=== PATIENT | female | born 1950 | race Caucasian/White ===

== ENCOUNTER → 2017-08-04 | Outpatient (CLI) | payer MEDICARE, OTHER ==
[~2017-08-04] MED LIST: ALIGN4 MG PO; ASPIRIN81 MG PO; BENTYL10 MG PO; CLONIDINE HCL0.1 MG PO; DICYCLOMINE HCL10 MG PO; FLECTOR1 EACH PO; FLUOXETINE HCL20 MG PO; HYDROCODON-ACE1 EA10 PO; LEVOCETIRIZINE D5 MG PO; LEVSIN0.125 MG PO; LORAZEPAM INJ 2 MG/ML VIAL ONE; LOSARTAN-HCTZ1 EAC2 PO; LOSARTAN-HCTZ1 EACH PO; MELOXICAM7.5 MG PO; METOPROLOL TART25 MG PO; OMEPRAZOLE40 MG PO; ONDANSETRO4 MG/UDTAB PO; PROMETHAZINE HC25 M1 PO; SERTRALINE HCL50 MG PO; ZOFRAN ODT4 MG SL; ZOLPIDEM TARTRA10 MG PO
--- NOTE | 2017-08-05 08:39 | Diagnostic Imaging Report ---
Exam: Lumbar spine MRI without IV contrast History: Low back pain Comparison studies: None Technique: Sagittal and axial T2 , sagittal T1 and IR, axial-oblique proton density and coronal T2. Intravenous contrast: None Findings: Number of lumbar vertebral bodies: 5. Alignment: Normal lordosis. Very mild thoracolumbar curvature convex to the left Soft tissues: No T2 hyperintense inflammatory changes. Paraspinal muscles: Mild atrophy, slightly greater on the right at L5. Lower thoracic cord: Normal in signal and morphology. The tip of the conus is at L1. Cauda equina: No masses. No arachnoiditis. Vertebrae: No compression fractures, infection or neoplasm. Degenerative changes: T11-T12: Mildly degenerated disc. Small disc bulge does not result in canal stenosis. Patent foramina. T12-L1: Patent canal and foramina. No disc herniation L1-L2: Patent canal and foramina. No disc herniation. L2-L3: Mildly degenerated disc with mild loss of disc height and T2 disc signal. Symmetric disc bulge does not result in significant canal stenosis. Pain foramina. L3-L4: Mildly degenerated disc. Small asymmetric right disc bulge with 10 mm TV x 3 mm AP right central disc protrusion and mild facet arthrosis results in minimal canal stenosis and mild narrowing of the right subarticular zone without nerve root impingement. L4-L5: Mildly degenerated disc. Asymmetric left disc bulge and mild facet arthrosis result in very mild canal stenosis and mild narrowing of the subarticular zones. No significant foraminal stenosis. Small facet effusion on the right results in only mild widening of the right facet joint. L5-S1: Patent canal and foramina. No disc herniation. IMPRESSION: Mild degenerative changes with mild multilevel disc degeneration and small disc protrusion at L3-L4 without significant canal stenosis, foraminal stenosis or nerve root impingement. Signed by: Dr. Ja Brenner M.D. on 08/05/2017 8:35 AM
== END ==
LOC: MRI 07-28 15:17
PROVIDERS: ATTEND Family Medicine
DX: M54.5 Low back pain (principal)
CPT/HCPCS: 72148; J2060

== ENCOUNTER 2017-09-11 04:21 | Emergency (ER) | payer MEDICARE, OTHER ==
[~2017-09-11] VITALS: Ht 162.6 cm; Wt 74.4 kg
[~2017-09-11 04:21] MED LIST changes: -LORAZEPAM INJ 2 MG/ML VIAL ONE
--- OUTSIDE RECORDS SUMMARY | 2017-09-11 04:24 | XMS REPORT ---
Author Author [facility] Address Unknown Phone Unavailable Care Team Providers Care Health Information Provider Name Role Phone MARICHUY MCCALLUM Unavailable Unavailable Problems This patient has no known problems. Allergies, Adverse Reactions, Alerts This patient has no known allergies or adverse reactions. Medications This patient has no known medications. Results Test Description Test Time Test Comments Text Results Atomic Results Result Comments MRI SPINE LUMBAR WO [place] [address] Patient Name: MARGARETTE COLÓN MR #: [id number] : 1950 Age/Sex: 67/F Req #: [id number] Adm Physician: Ordered by: MARICHUY MCCALLUM MD Report #: [id number] Location: MRI Room/Bed: Procedure: [id number] MRI/MRI SPINE LUMBAR WO Exam Date: 08/04/17 Exam Time: 1210 REPORT STATUS: Signed Exam: Lumbar spine MRI without IV contrast History: Low back pain Comparison studies: None Technique: Sagittal and axial T2 , sagittal T1 and IR, axial-oblique proton density and coronal T2. Intravenous contrast: None Findings: Number of lumbar vertebral bodies: 5. Alignment: Normal lordosis. Very mild thoracolumbar curvature convex to the left Soft tissues: No T2 hyperintense inflammatory changes. Paraspinal muscles: Mild atrophy, slightly greater on the right at L5. Lower thoracic cord: Normal in signal and morphology. The tip of the conus is at L1. Cauda equina: No masses. No arachnoiditis. Vertebrae: No compression fractures, infection or neoplasm. Degenerative changes: T11-T12: Mildly degenerated disc. Small disc bulge does not result in canal stenosis. Patent foramina. T12- L1: Patent canal and foramina. No disc herniation L1-L2: Patent canal and foramina. No disc herniation. L2-L3: Mildly degenerated disc with mild loss of disc height and T2 disc signal. Symmetric disc bulge does not result in significant canal stenosis. Pain foramina. L3-L4: Mildly degenerated disc. Small asymmetric right disc bulge with 10 mm TV x 3 mm AP right central disc protrusion and mild facet arthrosis results in minimal canal stenosis and mild narrowing of the right subarticular zone without nerve root impingement. L4-L5: Mildly degenerated disc. Asymmetric left disc bulge and mild facet arthrosis result in very mild canal stenosis and mild narrowing of the subarticular zones. No significant foraminal stenosis. Small facet effusion on the right results in only mild widening of the right facet joint. L5-S1: Patent canal and foramina. No disc herniation. IMPRESSION: Mild degenerative changes with mild multilevel disc degeneration and small disc protrusion at L3-L4 without significant canal stenosis, foraminal stenosis or nerve root impingement. Signed by: Dr. Greg Brenner M.D. on 08/05/2017 8:35 AM Dictated By: GREG BRENNER MD 4 Transcribed By: KYM on 08/05/17834 COPY TO: MARICHUY MCCALLUM MD CHEST 2 VIEWS [place] [address] Patient Name: MARGARETTE COLÓN MR #: [id number] : 1950 Age/Sex: 66/F Req # : [id number] Adm Physician: Ordered by: MARICHUY MCCALLUM MD Report #: [id number] Location: [facility] Room/Bed: Procedure: [id number] DX/CHEST 2 VIEWS Exam Date: 06/02/17 Exam Time: 1715 REPORT STATUS: Signed PROCEDURE: Frontal and lateral views of the chest. COMPARISON: Chest radiograph 10/01/2010 INDICATIONS: BRONCHITIS, COUGH FINDINGS: Lines/tubes: None. Lungs: The lungs are well inflated and clear. Mild bibasilar atelectasis. There is no evidence of pneumonia or pulmonary edema. Pleura: There is no pleural effusion or pneumothorax. Heart and mediastinum: The heart and the mediastinum are normal. Bones: No acute bony abnormality. IMPRESSION: No acute cardiopulmonary disease. Dictated by: Cristiano Cedeño M.D. on 06/02/2017 at 17:44 Electronically approved by: Cristiano Cedeño M.D. on 06/02/2017 at 17:44 Dictated By: CRISTIANO CEDEÑO MD 1744 Transcribed By: GERARDO on 06/02/171743 COPY TO: MARICHUY MCCALLUM MD
[2017-09-11] MEDS ORDERED: PANTOPRAZOLE 40 MG 10ML VIAL IV STA (04:30)
[2017-09-11] MEDS ORDERED: SODIUM CHLORIDE 0.9% 1000ML 1,000 ML IV ONE (04:30)
[2017-09-11] MEDS ORDERED: DIATRIZOATE MEGL/DIATRIZOA SOD 30 ML BTL PO ONE (04:34)
[2017-09-11 04:39] LABS: BASOPHILS # (AUTO) 0.1 (0.0-0.1); BASOPHILS % 0.4 % (0.0-1.0); EOSINOPHILS # (AUTO) 0.1 (0.0-0.4); EOSINOPHILS % 0.6 % (0.0-6.0); HEMATOCRIT 41.4 % (34.2-44.1); LYMPHOCYTES # (AUTO) 2.6 (1.0-3.2); LYMPHOCYTES % 17.5 % (18.0-39.1); MEAN CORPUSCULAR HEMOGLOBIN 27.3 pg (28-32); MEAN CORPUSCULAR HGB CONC 31.4 g/dL (31-35); MEAN CORPUSCULAR VOLUME 86.8 fL (81-99); MONOCYTES # (AUTO) 0.9 (0.2-0.8); MONOCYTES % 6.2 % (4.4-11.3); NEUTROPHILS # (AUTO) 11.2 (2.1-6.9); NEUTROPHILS % 74.8 % (38.7-80.0); PLATELET COUNT 472 x10e3/uL (140-360); RED BLOOD COUNT 4.77 x10e6/uL (3.6-5.1); RED CELL DISTRIBUTION WIDTH 15.3 % (11.7-14.4)
[2017-09-11] MEDS ORDERED: GLYCOPYRROLATE (04:43)
[2017-09-11] MEDS ORDERED: FORMOTEROL (04:43)
[2017-09-11] MEDS ORDERED: DICYCLOMINE HCL20 MG PO (04:43)
[2017-09-11] MEDS ORDERED: ASPIRIN EC81 MG PO (04:43)
[2017-09-11 05:00] LABS: ALANINE AMINOTRANSFERASE 10 IU/L (0-55); ALBUMIN 3.9 g/dL (3.5-5.0); ALKALINE PHOSPHATASE 124 IU/L (40-150); AMYLASE 23 U/L (25-125); BLOOD UREA NITROGEN 16 mg/dL (7-26); BUN/CREATININE RATIO 14 (6-25); CALCIUM 9.7 mg/dL (8.4-10.2); CARBON DIOXIDE 26 mmol/L (22-29); CHLORIDE 100 mmol/L (98-107); CREATINE KINASE 40 IU/L (29-168); CREATININE, SERUM 1.11 mg/dL (0.57-1.11); EST GLOMERULAR FILTRATION RATE 49 ML/MIN (60-); GLUCOSE 102 mg/dL (74-118); LIPASE 12 U/L (8-78); SODIUM 138 mmol/L (136-145)
[2017-09-11] MEDS ORDERED: IOPAMIDOL 370 MG/ML 200 ML INFUS..BTL INJ ONE (05:47)
[2017-09-11] MEDS ORDERED: SODIUM CHLORIDE 0.9% 50ML 50 ML ONE (05:47)
[2017-09-11 05:54] LABS: BILIRUBIN,URINE NEGATIVE (NEGATIVE); KETONES,URINE NEGATIVE (NEGATIVE); LEUKOCYTE ESTERASE ,URINE 1+ (NEGATIVE); NITRITE,URINE NEGATIVE (NEGATIVE); PROTEIN,URINE DIPSTICK NEGATIVE (NEGATIVE); URINE UROBILINOGEN 0.2 mg/dL (0.2 - 1)
[2017-09-11 05:57] LABS: CLARITY,URINE CLEAR (CLEAR); COLOR,URINE STRAW (YELLOW)
[2017-09-11 06:00] LABS: BACTERIA,URINE FEW /HPF; EPITHELIAL CELLS,URINE FEW /LPF
--- NOTE | 2017-09-11 06:17 | Diagnostic Imaging Report ---
EXAM: CT Abdomen and Pelvis WITH contrast INDICATION: Abdominal pain COMPARISON: 11/13/2016 TECHNIQUE: Abdomen and pelvis were scanned utilizing a multidetector helical scanner from the lung base to the pubic symphysis after administration of IV contrast. Coronal and sagittal reformations were obtained. Routine protocol was performed. Scan was performed when during portal venous phase. IV CONTRAST: 100 mL of Isovue-370 ORAL CONTRAST: None RADIATION DOSE: Total DLP: 475.92 mGy*cm Estimated effective dose: (DLP x 0.015 x size factor) mSv COMPLICATIONS: None FINDINGS: LINES and TUBES: None. LOWER THORAX: Unremarkable HEPATOBILIARY: No focal hepatic lesions. No biliary ductal dilation. GALLBLADDER: There are cholecystectomy clips. SPLEEN: No splenomegaly. PANCREAS: No focal masses or ductal dilatation. Diffuse fatty replacement. ADRENALS: No adrenal nodules KIDNEYS/URETERS: Kidneys enhance symmetrically. No hydronephrosis. No cystic or solid mass lesions. No stones. GI TRACT: No abnormal distention, wall thickening, or evidence of bowel obstruction. Loss of haustrations of the left hemicolon can be seen on patient with chronic colitis. Appendix is not clearly identified. There is however no fat stranding or adenopathy in the right lower quadrant to suggest appendicitis. PELVIC ORGANS/BLADDER: There are postop changes of hysterectomy and bilateral oophorectomies. LYMPH NODES: No lymphadenopathy. VESSELS: There is mild atherosclerotic disease in the aorta and major arterial branches. PERITONEUM / RETROPERITONEUM: No free air or fluid. BONES: There are mild degenerative changes in the lumbar spine. SOFT TISSUES: Unremarkable. IMPRESSION: 1. No evidence of acute intra-abdominal or pelvic abnormality. 2. However, loss of infiltration of the left hemicolon can be seen on patients with chronic colitis. Signed by: Dr. Inder Cardoza M.D. on 09/11/2017 6:13 AM
--- NOTE | 2017-09-11 06:19 | Diagnostic Imaging Report ---
EXAMINATION: CHEST SINGLE (PORTABLE) INDICATION: Shortness of breath COMPARISON: 06/02/2017 FINDINGS: TUBES and LINES: None. LUNGS: Lungs are not well inflated. Lungs are clear. There is mild prominence of the central pulmonary vasculature, consistent with pulmonary venous congestion. PLEURA: No pleural effusion or pneumothorax. HEART AND MEDIASTINUM: Cardiac size is mildly enlarged. There are atherosclerotic calcifications within the aorta. BONES AND SOFT TISSUES: No acute osseous lesion. Soft tissues are unremarkable. UPPER ABDOMEN: No free air under the diaphragm. IMPRESSION: No acute thoracic abnormality. Mild enlargement of the heart without decompensation. Signed by: Dr. Inder Cardoza M.D. on 09/11/2017 6:14 AM
[2017-09-11 06:42] VITALS: BP 125/65
[2017-09-22] MEDS ORDERED: PHENERGAN (13:29)
== END 2017-09-11 06:44 | disposition home or self-care (01) ==
LOC: ER 04:21
DX: R11.2 Nausea with vomiting, unspecified (principal); R19.7 Diarrhea, unspecified; N30.90 Cystitis, unspecified without hematuria; I10 Essential (primary) hypertension; K21.9 Gastro-esophageal reflux disease without esophagitis
CPT/HCPCS: 36415; 71045; 74177; 80053; 81001; 82150; 82550; 82553; 83690; 84484; 85025; 87086; 87400; 93005; 96360; 96374; 99284; J7030; Q9967

== ENCOUNTER → 2017-09-22 | Day surgery (SDC) | payer MEDICARE, OTHER ==
[2017-09-20 15:16] LABS: BASOPHILS # (AUTO) 0.1 (0.0-0.1); BASOPHILS % 0.5 % (0.0-1.0); EOSINOPHILS # (AUTO) 0.3 (0.0-0.4); EOSINOPHILS % 2.1 % (0.0-6.0); HEMATOCRIT 42.9 % (34.2-44.1); HEMOGLOBIN 13.7 g/dL (12.0-16.0); LYMPHOCYTES # (AUTO) 3.6 (1.0-3.2); LYMPHOCYTES % 22.4 % (18.0-39.1); MEAN CORPUSCULAR HEMOGLOBIN 27.4 pg (28-32); MEAN CORPUSCULAR HGB CONC 31.9 g/dL (31-35); MEAN CORPUSCULAR VOLUME 85.8 fL (81-99); MONOCYTES # (AUTO) 1.3 (0.2-0.8); MONOCYTES % 7.8 % (4.4-11.3); NEUTROPHILS # (AUTO) 10.8 (2.1-6.9); NEUTROPHILS % 66.7 % (38.7-80.0); PLATELET COUNT 600 x10e3/uL (140-360); RED CELL DISTRIBUTION WIDTH 15.4 % (11.7-14.4)
[~2017-09-22] MED LIST changes: +ASPIRIN EC81 MG PO; +DICYCLOMINE HCL20 MG PO; +FENTANYL CITRATE/PF 100MCG/2 ML INJ ONE; +FORMOTEROL; +GLYCOPYRROLATE; +HYOSCYAMINE SULFATE 0.5 MG/ML AMP ONE; +LIDOCAINE HCL 2% LOCAL INJ 5 ML SDV VIAL INJ ONE; +METOCLOPRAMIDE HCL 10 MG/2ML VIAL ONE; +MIDAZOLAM HCL 2 MG/2 ML VIAL ONE; +ONDANSETRON HCL INJ 2 MG/ML VIAL ONE; +PANTOPRAZOLE 40 MG 10ML VIAL ONE; +PHENERGAN; +PROPOFOL IV EMULSION 10 MG/ML 50 ML VIAL ONE
--- OUTSIDE RECORDS SUMMARY | 2017-09-22 11:36 | XMS REPORT | Continuity of Care Document ---
Author Author [facility] Organization [facility] Address [address] [place] [address] Phone Unavailable Care Team Providers Care Quality Control Manager Name Role Phone MARICHUY MCCALLUM MD PCP Insurance Providers Guarantor Margarette Bush Address [address] [place] [address] Email [email or web address] Payer Medicare A & B Policy Number [id number] Subscriber's Name Margarette Bush Relationship 18 Self / Same As Patient Group Name RETIRED Effective Date 14 Payer Physicians [place] Indemnity Policy Number [id number] Subscriber's Name Margarette Bush Relationship 18 Self / Same As Patient Group Number [id number] Group Name RETIRED Effective Date 14 Advance Directives Directive Response Recorded Date/Time Does the patient have an advance directive? No 10/01/10 2:35pm If yes, is advance directive on file with [facility]? No 02/13/10 10:04am If not on file with [facility] will patient provide a copy? Yes 09/11/17 5:36am Do you have a Directive to Physician? No 09/11/17 5:36am Do you have a Medical Power of Power [place]? No 09/11/17 5:36am Do you have an out of hospital Do Not Resuscitate Order? No 09/11/17 5:36am Do you have any special needs we should be aware of? No 09/11/17 5:36am Do you have a support person here with you today? Yes 09/11/17 5:36am Did patient receive Notice of Privacy Practices? Yes 09/11/17 5:36am Did patient receive patient rights and responsibilities? Yes 09/11/17 5:36am Problems Medical Problem Onset Date Status Sprain of left knee Unknown Acute Medications Current Home Medications Medication Dose Units Route Directions Days Qty Instructions Start Date Aspirin 81 Mg Tab.chew 81 Mg Oral Twice A Day Aspirin (Aspirin Ec) 81 Mg Tablet.dr 81 Mg Oral Daily 30 Tab Bevespi Aeroshpere Unknown Dose Bifidobacterium Infantis (Align) 4 Mg Capsule 1 Cap Oral Daily Clonidine Hcl 0.1 Mg Tablet 1 Tab Oral Twice A Day 60 Tab Dicyclomine Hcl 20 Mg Tablet 20 Mg Oral Three Times A Day as needed for Na Losartan/Hydrochlorothiazide (Losartan-Hctz 50-12.5 Mg Tab) 1 Each Tablet 1 Tab Oral Daily Metoprolol Tartrate 25 Mg Tablet 25 Mg Oral Twice A Day Omeprazole 40 Mg Capsule.dr 20 Mg Oral Daily Ondansetron Hcl (Ondansetron Odt) 4 Mg/Udtablet Tabdp 4 Mg Oral Twice A Day for Nausea And Vomiting Sertraline Hcl 50 Mg Tablet 50 Mg Oral Daily 30 Tab Zolpidem Tartrate 10 Mg Tablet 10 Mg Oral Bedtime 30 Tab Past Home Medications Medication Directions Ordered Status Diclofenac Epolamine (Flector) 1 Each Adh..patch, 50 Mg Oral Twice A Day Discontinued Dicyclomine Hcl (Bentyl) 10 Mg Capsule, 20 Mg Oral Three Times A Day Discontinued Dicyclomine Hcl 10 Mg Capsule, 10 Mg Oral Daily Discontinued Fluoxetine Hcl 20 Mg Capsule, 20 Mg Oral Daily Discontinued Hydrocodone Bit/Acetaminophen (Hydrocodon-Acetaminophen 5-300) 1 Each Tablet, 1 Tab Oral As Needed Discontinued Hyoscyamine Sulfate (Levsin) 0.125 Mg Tablet, 1 Tab Oral Every 4 Hours for Abdominal Pain Discontinued Levocetirizine Dihydrochloride 5 Mg Tablet, 1 Tab Oral Daily Discontinued Losartan/Hydrochlorothiazide (Losartan-Hctz 100-12.5 Mg Tab) 1 Each Tablet, 1 Tab Oral Bedtime Discontinued Meloxicam 7.5 Mg Tablet, 7.5 Mg Oral Daily Discontinued Ondansetron (Zofran Odt) 4 Mg Tab.rapdis, 8 Mg Sublingual Twice A Day Discontinued Promethazine Hcl 25 Mg Tablet, 25 Mg Oral As Needed Discontinued Social History Social History Problem Response Recorded Date/Time Onset Date Status Hx Psychiatric Problems No 10/01/2010 2:35pm Not Applicable Not Applicable Hx Eating Disorder No 10/01/2010 2:35pm Not Applicable Not Applicable Hx Substance Use Disorder No 10/01/2010 2:35pm Not Applicable Not Applicable Hx Depression Yes 10/01/2010 2:35pm Not Applicable Not Applicable Hx Alcohol Use No 10/01/2010 2:35pm Not Applicable Not Applicable Hx Substance Use Treatment No 10/01/2010 2:35pm Not Applicable Not Applicable Hx Physical Abuse No 10/01/2010 2:35pm Not Applicable Not Applicable Smoking Status Start Date Stop Date Former smoker Hospital Discharge Instructions No hospital discharge instruction information available. Plan of Care Discharge Date 09/11/17 6:44am Disposition HOME, SELF-CARE Condition at Discharge Stable Instructions/Education Provided Abdominal Pain - Adult Forms Provided Work/School Excuse Prescriptions See Medication Section Referrals MARICHUY MCCALLUM MD Address: [address] [place] [address] [address] [place] [address] JOI BUCHANAN MD Address: [address] [place] [address] [address] [place] [address] Additional Instructions/Education FOLLOW UP WITH YOUR PRIMARY CARE DOCTOR/ DR Kuldip BUCHANAN ON WEDNESDAY ADMINISTER MEDICATIONS ORDERED BY DOCTOR RETURN IF SYMPTOMS WORSEN Functional Status No functional status information available. Allergies, Adverse Reactions, Alerts No known allergies. Immunizations No immunization information available. Vital Signs Acute Vital Signs Vital Response Date/Time Temperature (Fahrenheit) 97.8 degrees F (97.6 - 99.5) 09/11/2017 6:42am Pulse Pulse Rate (adult) 65 bpm (60 - 90) 09/11/2017 6:42am Respiratory Rate 20 bpm (12 - 24) 09/11/2017 6:42am Blood Pressure 125/65 mm Hg 09/11/2017 6:42am Height 5 ft 4 in 09/11/2017 4:27am Weight 164 lb 09/11/2017 4:27am Body Mass Index 28.1 kg/m^2 09/11/2017 4:27am Results Laboratory Results Test Name Result Units Flags Reference Collection Date/Time Result Date/ Time Comments White Blood Count 14.89 x10e3/uL H 4.8-10.8 09/11/2017 4:332017 4:39am Red Blood Count 4.77 x10e6/uL 3.6-5.1 09/11/2017 4:3309/11/2017 4: 39am Hemoglobin 13.0 g/dL 12.0-16.0 09/11/2017 4:3309/11/2017 4:39am Hematocrit 41.4 % 34.2-44.1 09/11/2017 4:3309/11/2017 4:39am Mean Corpuscular Volume 86.8 fL 81-99 09/11/2017 4:3309/11/2017 4: 39am Mean Corpuscular Hemoglobin 27.3 pg L 28-32 09/11/2017 4:332017 4:39am Mean Corpuscular Hemoglobin Concent 31.4 g/dL 31-35 09/11/2017 4:3309/11/2017 4:39am Red Cell Distribution Width 15.3 % H 11.7-14.4 09/11/2017 4:332017 4:39am Platelet Count 472 x10e3/uL H 140-360 09/11/2017 4:33am 09/11/2017 4: 39am Neutrophils (%) (Auto) 74.8 % 38.7-80.0 09/11/2017 4:3309/11/2017 4: 39am Lymphocytes (%) (Auto) 17.5 % L 18.0-39.1 09/11/2017 4:3309/11/2017 4 :39am Monocytes (%) (Auto) 6.2 % 4.4-11.3 09/11/2017 4:3309/11/2017 4: 39am Eosinophils (%) (Auto) 0.6 % 0.0-6.0 09/11/2017 4:3309/11/2017 4: 39am Basophils (%) (Auto) 0.4 % 0.0-1.0 09/11/2017 4:3309/11/2017 4:39am IM GRANULOCYTES % 0.5 % 0.0-1.0 09/11/2017 4:33am 09/11/2017 4:39am Neutrophils # (Auto) 11.2 H 2.1-6.9 09/11/2017 4:33am 09/11/2017 4: 39am Lymphocytes # (Auto) 2.6 1.0-3.2 09/11/2017 4:33am 09/11/2017 4:39am Monocytes # (Auto) 0.9 H 0.2-0.8 09/11/2017 4:33am 09/11/2017 4:39am Eosinophils # (Auto) 0.1 0.0-0.4 09/11/2017 4:33am 09/11/2017 4:39am Basophils # (Auto) 0.1 0.0-0.1 09/11/2017 4:33am 09/11/2017 4:39am Absolute Immature Granulocyte (auto 0.07 x10e3/uL 0-0.1 09/11/2017 4: 33am 09/11/2017 4:39am Urine Color STRAW YELLOW 09/11/2017 5:03am 09/11/2017 5:57am Urine Clarity CLEAR CLEAR 09/11/2017 5:03am 09/11/2017 5:57am Urine Specific [place] 1.005 L 1.010-1.025 09/11/2017 5:03am 2017 5:57am Urine pH 7 5 - 7 09/11/2017 5:03am 09/11/2017 5:57am Urine Leukocyte Esterase 1+ H NEGATIVE 09/11/2017 5:03am 09/11/2017 5: 57am Urine Nitrite NEGATIVE NEGATIVE 09/11/2017 5:03am 09/11/2017 5:57am Urine Protein NEGATIVE NEGATIVE 09/11/2017 5:03am 09/11/2017 5:57am Urine Glucose (UA) NEGATIVE NEGATIVE 09/11/2017 5:03am 09/11/2017 5: 57am Urine Ketones NEGATIVE NEGATIVE 09/11/2017 5:03am 09/11/2017 5:57am Urine Urobilinogen 0.2 mg/dL 0.2 - 1 09/11/2017 5:03am 09/11/2017 5: 57am Urine Bilirubin NEGATIVE NEGATIVE 09/11/2017 5:03am 09/11/2017 5: 57am Urine Blood NEGATIVE NEGATIVE 09/11/2017 5:03am 09/11/2017 5:57am Urine WBC 6-10 /HPF H 0-5 09/11/2017 5:03am 09/11/2017 6:00am Urine RBC NONE /HPF 0-5 09/11/2017 5:03am 09/11/2017 6:00am Urine Bacteria FEW /HPF NONE 09/11/2017 5:03am 09/11/2017 6:00am Urine Epithelial Cells FEW /LPF NONE 09/11/2017 5:03am 09/11/2017 6: 00am Sodium Level 138 mmol/L 136-145 09/11/2017 4:33am 09/11/2017 5:01am Potassium Level 4.0 mmol/L 3.5-5.1 09/11/2017 4:33am 09/11/2017 5:01am Chloride Level 100 mmol/L 98-107 09/11/2017 4:33am 09/11/2017 5:01am Influenza Virus Types A,B Antigen NEGATIVE NEGATIVE 09/11/2017 4:55am 09/11/2017 5:14am Carbon Dioxide Level 26 mmol/L 22-29 09/11/2017 4:33am 09/11/2017 5: 01am Anion Gap 16.0 mmol/L 8-16 09/11/2017 4:33am 09/11/2017 5:01am Blood Urea Nitrogen 16 mg/dL 7-09/11/2017 4:33am 09/11/2017 5:01am Creatinine 1.11 mg/dL 0.57-1.11 09/11/2017 4:33am 09/11/2017 5:01am BUN/Creatinine Ratio 14 6-25 09/11/2017 4:33am 09/11/2017 5:01am Estimat Glomerular Filtration Rate 49 ML/MIN L 60- 09/11/2017 4:33am 05/2018 5:01am Ranges were taken from the National Kidney Disease Education Program and the National Kid[employer] Foundation literature. Reference ranges: 60 or greater: Normal 16-59 (for 3 consecutive months): Chronic kidney disease 15 or less: Kidney failure Glucose Level 102 mg/dL 74-118 09/11/2017 4:33am 09/11/2017 5:01am Calcium Level 9.7 mg/dL 8.4-10.2 09/11/2017 4:33am 09/11/2017 5:01am Total Bilirubin 0.6 mg/dL 0.2-1.2 09/11/2017 4:33am 09/11/2017 5:01am Aspartate Amino Transf (AST/SGOT) 13 IU/L 5-34 09/11/2017 4:33am 2017 5:01am Alanine Aminotransferase (ALT/SGPT) 10 IU/L 0-55 09/11/2017 4:33am 05/2018 5:01am Total Protein 7.8 g/dL 6.5-8.1 09/11/2017 4:33am 09/11/2017 5:01am Albumin 3.9 g/dL 3.5-5.0 09/11/2017 4:33am 09/11/2017 5:01am Globulin 3.9 g/dL H 2.3-3.5 09/11/2017 4:33am 09/11/2017 5:01am Albumin/Globulin Ratio 1.0 0.8-2.0 09/11/2017 4:33am 09/11/2017 5: 01am Alkaline Phosphatase 124 IU/L 40-150 09/11/2017 4:33am 09/11/2017 5: 01am Creatine Kinase 40 IU/L 29-168 09/11/2017 4:33am 09/11/2017 5:01am Creatine Kinase MB 0.70 ng/mL 0.00-5.00 09/11/2017 4:33am 09/11/2017 5: 07am Troponin I < 0.001 ng/mL 0-0.300 09/11/2017 4:33am 09/11/2017 5:07am Amylase Level 23 U/L L 25-125 09/11/2017 4:33am 09/11/2017 5:01am Lipase 12 U/L 8-78 09/11/2017 4:33am 09/11/2017 5:01am Procedures Procedure Status Date Provider(s) EGD BIOPSY SINGLE/MULTIPLE Completed 02/10/17 JOI BUCHANAN MD DILATE ESOPHAGUS 1/MULT PASS Completed 02/10/17 JOI BUCHANAN MD X-ray of chest, two views Active 06/02/17 MARICHUY MCCALLUM MD Magnetic resonance imaging of lumbar spine without contrast Active 08/04/17 MARICHUY MCCALLUM MD Computed tomography of abdomen and pelvis with contrast Active 09/11/17 SIVAKUMAR MUÑOZ MD Encounters Encounter Location Arrival/Admit Date Discharge/Depart Date Attending Provider Departed Emergency Room [facility] 09/11/17 4:21am 6:44am SIVAKUMAR MUÑOZ MD Registered Clinic [facility] 08/04/17 10:00am MARICHUY MCCALLUM MD Registered Clinic [facility] 06/02/17 4:51pm MARICHUY MCCALLUM MD Registered Clinic [facility] 03/04/17 10:32am JOI BUCHANAN MD Registered Surgical Day Care [facility] 02/10/17 9:24am JOI BUCHANAN MD
[2017-09-22 12:51] LABS: BASOPHILS # (AUTO) 0.1 (0.0-0.1); BASOPHILS % 0.4 % (0.0-1.0); EOSINOPHILS # (AUTO) 0.1 (0.0-0.4); EOSINOPHILS % 0.8 % (0.0-6.0); HEMATOCRIT 41.2 % (34.2-44.1); HEMOGLOBIN 13.6 g/dL (12.0-16.0); LYMPHOCYTES # (AUTO) 3.1 (1.0-3.2); MEAN CORPUSCULAR HEMOGLOBIN 27.4 pg (28-32); MEAN CORPUSCULAR VOLUME 82.9 fL (81-99); MONOCYTES # (AUTO) 1.4 (0.2-0.8); MONOCYTES % 8.4 % (4.4-11.3); NEUTROPHILS # (AUTO) 11.7 (2.1-6.9); PLATELET COUNT 549 x10e3/uL (140-360); RED BLOOD COUNT 4.97 x10e6/uL (3.6-5.1); RED CELL DISTRIBUTION WIDTH 15.2 % (11.7-14.4)
[2017-09-22 15:19] LABS: WBC,FECAL (FECAL LACTOFERRIN) POSITIVE (NEGATIVE)
--- NOTE | 2017-09-22 15:53 | Operative Report ---
DATE OF PROCEDURE: September 22, 2017 REFERRING PHYSICIAN: Dr. Marichuy Mccallum. PROCEDURE PERFORMED: EGD with esophageal dilatation and biopsies and a colonoscopy with polypectomy and biopsies. INDICATIONS FOR ESOPHAGOGASTRODUODENOSCOPY: Dysphagia to solids, nausea and vomiting. INDICATIONS FOR COLONOSCOPY: Persistent diarrhea, abnormal CT scan. MEDICATION: Patient was done under MAC. Please see anesthesiologist's note. PROCEDURE: With patient in the lateral decubitus position, flexible fiberoptic Olympus gastroscope was introduced into the esophagus under direct visualization without any difficulty. There was some patchy erythema noted in distal esophagus. Stricture was noted in the GE junction that was dilated to size 50-Swazi Leiva. The scope was then advanced with ease into the stomach traversing a small sliding hiatal hernia. Mucosa overlying the antrum and the body revealed some patchy intense erythema and moderate edema, and biopsies were obtained and sent to stain for H. pylori. Pylorus appeared to be of normal contour and shape. Was intubated with ease and the scope was advanced all the way to the 2nd portion of the duodenum. The scope was then withdrawn slowly. Mucosa overlying the proximal 2nd portion and the duodenal bulb appeared to be within normal limits. The scope was then withdrawn back into the stomach and retroflexed. Mucosa overlying the fundus and the cardia appeared to be within normal limits. The scope was then straightened out. The stomach was decompressed. The scope was subsequently withdrawn. Patient tolerated the procedure well. IMPRESSION: 1. Distal esophagitis. 2. Esophageal stricture at gastroesophageal junction dilated to a size 50-Swazi Leiva. 3. Small sliding hiatal hernia. 4. Gastritis biopsied. Biopsy sent stain for H. pylori. PLAN: Follow up histology. Initiate Protonix 40 mg 1 p.o. q.a.m. a.c. and Carafate 1 gram p.o. a.c. t.i.d. and nightly. Patient was then turned around and after adequate lubrication of the anal canal a flexible fiberoptic Olympus colonoscope was inserted into the rectum with ease and it could not be advanced beyond the distal sigmoid colon due to sharp angulation of the colon. The scope was then withdrawn and the EGD scope was introduced into the rectum and advanced in and in-and-out fashion to approximately 100 cm from the anal verge and then it was withdrawn slowly. Mucosa overlying the distal transverse colon grossly appeared to be within normal limits. The mucosa overlying the left colon revealed some patchy mild inflammatory changes. Multiple random biopsies were obtained. One polyp was hot biopsied from the distal rectum. The scope was then retroflexed into the distal rectum and small internal hemorrhoids were noted, none of which was actively bleeding. The scope was then straightened out. The rectosigmoid area as well as the distal rectal area were decompressed. The scope was subsequently withdrawn after securing an adequate stool specimen that was sent for the appropriate stool studies. Patient tolerated the procedure well. IMPRESSION 1. Colonoscopy per EGD scope to approximately 100 cm from the anal verge. 2. Mild patchy left-sided colitis. 3. Rectal polyp, minute, hot biopsied. 4. Internal hemorrhoids none actively bleeding. PLAN: Follow up histology. Follow up stool studies. Initiate VSL#3 one p.o. b.i.d. The patient will need a followup colonoscopy in 3 years. Job#: [id number] cc:MARICHUY MCCALLUM MD
[2017-09-22 16:07] LABS: BILIRUBIN,URINE 1+ (NEGATIVE); KETONES,URINE 3+ (NEGATIVE); LEUKOCYTE ESTERASE ,URINE 1+ (NEGATIVE); NITRITE,URINE NEGATIVE (NEGATIVE); PROTEIN,URINE DIPSTICK NEGATIVE (NEGATIVE); URINE UROBILINOGEN 0.2 mg/dL (0.2 - 1)
[2017-09-22 16:08] LABS: COLOR,URINE YELLOW (YELLOW)
[2017-09-22 16:10] LABS: ALBUMIN 3.7 g/dL (3.5-5.0); ALBUMIN/GLOBULIN RATIO 0.9 (0.8-2.0); ANION GAP 21.6 mmol/L (8-16); CALCIUM 9.6 mg/dL (8.4-10.2); CREATININE, SERUM 1.33 mg/dL (0.57-1.11); POTASSIUM 3.6 mmol/L (3.5-5.1)
[2017-09-22 16:27] LABS: BACTERIA,URINE FEW /HPF; CLARITY,URINE SL CLOUDY (CLEAR); EPITHELIAL CELLS,URINE FEW /LPF; RBC,URINE 0-5 /HPF (0-5)
[2017-09-23 09:10] LABS: C DIFFICILE TOXIN A&B AMP PROB NEGATIVE (NEGATIVE)
== END | disposition home or self-care (01) ==
LOC: OR 11:34
PROVIDERS: ATTEND Internal Medicine Gastroenterology
DX: K29.50 Unspecified chronic gastritis without bleeding (principal); K62.1 Rectal polyp; K22.2 Esophageal obstruction; K51.50 Left sided colitis without complications; K20.9 Esophagitis, unspecified; K64.8 Other hemorrhoids; K21.9 Gastro-esophageal reflux disease without esophagitis; K44.9 Diaphragmatic hernia without obstruction or gangrene; I10 Essential (primary) hypertension; E78.5 Hyperlipidemia, unspecified; G47.33 Obstructive sleep apnea (adult) (pediatric); J44.9 Chronic obstructive pulmonary disease, unspecified; M19.90 Unspecified osteoarthritis, unspecified site; Z01.812 Encounter for preprocedural laboratory examination; Z79.82 Long term (current) use of aspirin; Z87.891 Personal history of nicotine dependence
CPT/HCPCS: 36415 ×2; 43239; 43450; 45380; 45384; 80053; 81001; 83630; 83993; 85025 ×2; 87045; 87086; 87177; 87328; 87493; 88305; 88312; J1980; J2001; J2250; J2405; J2765; 45378

== ENCOUNTER → 2018-04-20 | Outpatient (CLI) | payer MEDICARE, OTHER ==
[~2018-04-20] MED LIST changes: -FENTANYL CITRATE/PF 100MCG/2 ML INJ ONE; -HYOSCYAMINE SULFATE 0.5 MG/ML AMP ONE; -LIDOCAINE HCL 2% LOCAL INJ 5 ML SDV VIAL INJ ONE; -METOCLOPRAMIDE HCL 10 MG/2ML VIAL ONE; -MIDAZOLAM HCL 2 MG/2 ML VIAL ONE; -ONDANSETRON HCL INJ 2 MG/ML VIAL ONE; -PANTOPRAZOLE 40 MG 10ML VIAL ONE; -PROPOFOL IV EMULSION 10 MG/ML 50 ML VIAL ONE
--- NOTE | 2018-04-29 04:43 | Polysomnography ---
DATE OF STUDY: April 20, 2018 DIAGNOSTIC POLYSOMNOGRAM REFERRING PHYSICIAN: Dr. Kevin Moy. HISTORY: Ms. Bush is a pleasant 67-year-old female with excessive daytime fatigue, as well as insomnia. The patient has past medical history of GERD, irritable bowel syndrome, bipolar disorder, depression, sleep apnea, hypertension. Medications include sucralfate, ondansetron, losartan, metoprolol, pantoprazole, clonidine, aspirin, zolpidem, quetiapine. The patient's [place] sleepiness scale score is 0. BMI is 27.6. The patient presents for a diagnostic polysomnogram. FINDINGS: Polysomnogram revealed total sleep time of 291 minutes with sleep efficiency of 70.7%. Sleep onset latency was achieved in 53 minutes and REM latency in 160.5 minutes. All sleep stages were noted. Stage N1 9.1%, N2 50.3%, N3 33.8%, REM 6.7% of total sleep time. Intermittent snoring was noted. A total of 8 hypopneas and 4 obstructive apneas were noted for an apnea-hypopnea index of 2.5 events per hour. The lowest oxygen saturation on this night was 86%. There was no significant long duration of desaturation time. There was no significant supine sleep that was noted on this night. A total of 233 periodic limb movements were noted for periodic limb movement index of 47.8 events per hour. These events were associated with minimal flexion movement of the foot, but no rito arousals. Single-lead EKG analysis demonstrated rare PVCs, but was otherwise unremarkable. INTERPRETATION: This is an abnormal polysomnogram due to the presence of: 1. Intermittent snoring. Multiple factors such as overweight status, thyroid disease, and structural/obstructive abnormalities in the upper airway can be contributory. Evaluation and management of these factors may be helpful. Based on the study, the patient does not require CPAP therapy. An ENT examination may be helpful if snoring persists and creates significant lifestyle difficulties. Of note, the patient did not have any significant supine sleep on this night observed. If the patient does indeed have a lot of supine sleep time at home, appropriate reevaluation may be indicated which could include repeat polysomnography while encouraging a supine position. 2. Periodic limb movements in sleep. In an appropriate clinical setup (a history of sleep disturbance or complaint with daytime fatigue or sleepiness), this could be consistent with periodic limb movement disorder in sleep. Periodic limb movement disorder in sleep can be associated with conditions such as restless legs syndrome, iron deficiency anemia, uremia, electrolyte imbalance such as hypomagnesemia, peripheral neuropathy, use of certain medications if persistent. Evaluation and management of these factors may be helpful. It is not clear if these periodic limb movements are related to any sleep impairment based on this polysomnographic acquisition. MD ADI Gonzalez Certified in Sleep Medicine Job#: [id number] MTDRachel
== END ==
LOC: SLEEP 20:34
PROVIDERS: ATTEND Family Medicine
DX: G47.33 Obstructive sleep apnea (adult) (pediatric) (principal)
CPT/HCPCS: 95810

== ENCOUNTER → 2019-01-05 | Outpatient (CLI) | payer MEDICARE, OTHER ==
--- NOTE | 2019-01-06 07:50 | Diagnostic Imaging Report ---
Abdomen, 2 views. History: Abdominal pain with constipation. Findings: The intestinal gas pattern is nonobstructive. There no masses or abnormal calcifications. Clips in the right upper quadrant of the abdomen are present. Pelvic calcifications appear compatible with phleboliths. The osseous structures are intact. IMPRESSION: No acute abdominal abnormality. Signed by: Dr. David Mukherjee DO on 01/06/2019 7:46 AM
== END ==
LOC: RAD 16:47
PROVIDERS: ATTEND Family Medicine
DX: R10.9 Unspecified abdominal pain (principal)
CPT/HCPCS: 74019

== ENCOUNTER → 2019-01-17 | Day surgery (SDC) | payer MEDICARE, OTHER ==
[2019-01-13 15:29] LABS: BASOPHILS # (AUTO) 0.1 (0.0-0.1); BASOPHILS % 0.8 % (0.0-1.0); EOSINOPHILS # (AUTO) 0.2 (0.0-0.4); EOSINOPHILS % 2.5 % (0.0-6.0); LYMPHOCYTES % 31.5 % (18.0-39.1); MEAN CORPUSCULAR HEMOGLOBIN 30.8 pg (28-32); MEAN CORPUSCULAR HGB CONC 32.6 g/dL (31-35); MEAN CORPUSCULAR VOLUME 94.5 fL (81-99); MONOCYTES % 10.3 % (4.4-11.3); NEUTROPHILS # (AUTO) 5.2 (2.1-6.9); NEUTROPHILS % 54.6 % (38.7-80.0); PLATELET COUNT 385 x10e3/uL (140-360); RED BLOOD COUNT 4.55 x10e6/uL (3.6-5.1); RED CELL DISTRIBUTION WIDTH 14.3 % (11.7-14.4)
[~2019-01-17] MED LIST changes: +CLONAZEPAM0.5 MG PO; +DONNATAL/LIDOCAINE/MAALOX 30 ML SUSP PO ONE; +FENTANYL CITRATE/PF 100MCG/2 ML INJ ONE; +LIDOCAINE HCL 2% LOCAL INJ 5 ML SDV VIAL INJ ONE; +METOCLOPRAMIDE10 MG PO; +MIDAZOLAM HCL 2 MG/2 ML VIAL ONE; +ONDANSETRON HCL INJ 2MG/ML 2ML 2 MG/ML VIAL ONE; +PANTOPRAZOLE SO40 MG PO; +PROPOFOL IV EMULSION 10 MG/ML 50 ML VIAL ONE; +QUETIAPINE FUMA25 MG; +SUCRALFATE1 GM PO
--- OUTSIDE RECORDS SUMMARY | 2019-01-17 10:08 | XMS REPORT | Clinical Summary ---
Author Author [facility] Organization [facility] Address Unknown Phone Unavailable Care Team Providers Care Glove Boarder Name Role Phone Kevin Moy MD PCP Allergies No Known Allergies Medications End Date Status Medication Sig Dispensed Refills Start Date Active clonIDINE (CATAPRES) 0.1 Take 0.1 mg 0 11/29/ MG tablet by mouth 2 8 (two) times a day. Active dicyclomine (BENTYL) 20 Take 20 mg by 3 12/14/201 mg tablet mouth 3 8 (three) times a day as needed. Active losartan-hydrochlorothiaz TAKE 1 TABLET 0 12/24/ topher (HYZAAR) 50-12.5 mg BY MOUTH 8 per tablet EVERY DAY 90 Active metoprolol tartrate Take 25 mg by 0 11/26/ (LOPRESSOR) 25 mg tablet mouth 2 (two) 8 times a day. Active montelukast (SINGULAIR) 1 TABLET IN 0 10 mg tablet THE EVENING 8 ONCE A DAY ORALLY 30 DAY(S) Active pantoprazole (PROTONIX) Take 40 mg by 0 40 MG EC tablet mouth 2 (two) 8 times a day. Active sucralfate (CARAFATE) 1 TAKE 1 TABLET 3 gram tablet BY MOUTH 3 8 TIMES A DAY BEFORE MEALS & AT BEDTIME Active zolpidem (AMBIEN) 10 mg Take 10 mg by 0 tablet mouth nightly 8 as needed. Active aspirin (ECOTRIN) 81 MG Take 81 mg by 0 enteric coated tablet mouth daily. Active promethazine (PHENERGAN) Take 25 mg by 0 25 MG tablet mouth every 6 (six) hours as needed for nausea or vomiting. Active Problems Problem Noted Date Iron deficiency anemia 02/08/2018 Encounters Care Team Description Date Type Specialty Qamar Antonio MD Disease of thyroid gland (Primary Dx); Gastroparesis 05/04/2018 Lab Lab Qamar Antonio MD Gastroesophageal reflux disease without esophagitis (Primary Dx); Benign esophageal stricture; Other iron deficiency anemia; Early satiety 05/04/2018 Office Visit Gastroenterology Claudia Rosenbaum LVN 05/04/2018 Telephone Gastroenterology Alise Rock MA Disorder of thyroid (Primary Dx); Gastroparesis 05/04/2018 Orders Only Gastroenterology Alise Rock MA Gastroparesis (Primary Dx) 05/04/2018 Orders Only Gastroenterology Alise Rock MA 05/03/2018 Telephone Gastroenterology Seema Levy MD Radicular pain 03/15/2018 Hospital Radiology Encounter Seema Levy MD Radicular pain (Primary Dx) 03/15/2018 Transcribe Access Orders Seema Levy MD Vick, Heather, RN Iron deficiency anemia, unspecified iron deficiency anemia type (Primary Dx) 02/22/2018 Infusion Oncology Tanner Dixon RN 02/21/2018 Orders Only Oncology Seema Levy MD Vick, Heather, RN Iron deficiency anemia, unspecified iron deficiency anemia type (Primary Dx) 02/15/2018 Infusion Oncology Nathalie Huggins NP 02/08/2018 Orders Only Hematology and Oncology after 01/16/2018 Family History Medical History Relation Name Comments Liver cancer Mother Relation Name Status Comments Mother Social History Date Tobacco Use Types Packs/Day Years Used Former Smoker Smokeless Tobacco: Never Used Alcohol Use Drinks/Week oz/Week Comments No Sex Assigned at Date Recorded Not on file Industry Job Start Date Occupation Not on file Not on file Not on file Travel End Travel History Travel Start No recent travel history available. Last Filed Vital Signs Time Taken Vital Sign Reading 05/04/2018 10:56 AM CDT Blood Pressure 116/73 05/04/2018 10:56 AM CDT Pulse 45 05/04/2018 10:56 AM CDT Temperature 36.6 C (97.9 F) 02/22/2018 10:25 AM CDT Respiratory Rate 17 02/22/2018 10:25 AM CDT Oxygen Saturation 97% - Inhaled Oxygen - Concentration 05/04/2018 10:56 AM CDT Weight 69.9 kg (154 lb) 05/04/2018 10:56 AM CDT Height 160 cm (5' 3") 05/04/2018 10:56 AM CDT Body Mass Index 27.28 Plan of Treatment Health Maintenance Due Date Last Done Comments BREAST CANCER SCREENING 1999 COLONOSCOPY SCREENING 1999 SHINGLES VACCINES (#1) 1999 65+ PNEUMOCOCCAL VACCINE 2014 (1 of 2 - PCV13) INFLUENZA VACCINE 03/02/2019 Procedures Comments Procedure Name Priority Date/Time Associated Diagnosis ESTIMATED GFR Routine 05/04/2018 12:50 PM CDT HEMOGLOBIN A1C Routine 05/04/2018 Disease of thyroid gland 12:50 PM CDT Gastroparesis COMPREHENSIVE METABOLIC Routine 05/04/2018 Disease of thyroid gland PANEL 12:50 PM CDT Gastroparesis THYROID STIMULATING Routine 05/04/2018 Disease of thyroid gland HORMONE 12:50 PM CDT Gastroparesis XR THORACIC SPINE 3 VW Routine 03/15/2018 Radicular pain 4:07 PM CDT after 01/16/2018 Results * Estimated GFR (05/04/2018 12:50 PM CDT) Estimated GFR 46 (A) mL/min/1.73 m2 [facility] DEPARTMENT Comment: OF PATHOLOGY CatergoryUnitsInte AND GENOMIC rpretation MEDICINE G1 >=90 Normal or high G2 60-89Mildly decreased [id number] Mildly to moderately decreased [id number] Moderately to severely decreased G4 15-29Severely decreased G5 <15Kidney failure The eGFR was calculated using the Chronic Kidney Disease Epidemiology Collaboration (CKD-EPI) equation. Interpretation is based on recommendations of the National Kidney Foundation-Kidney Disease Outcomes Quality Initiative (NKF-KDOQI) published in 2014. Specimen Plasma specimen Performing Organization Address City/State/Zipcode Phone Number [facility] DEPARTMENT OF [address] [place] [address] PATHOLOGY AND GENOMIC MEDICINE * Thyroid stimulating hormone (05/04/2018 12:50 PM CDT) TSH 1.56 0.27 - 4.20 uIU/mL [facility] DEPARTMENT OF PATHOLOGY AND GENOMIC MEDICINE Specimen Plasma specimen Performing Organization Address City/[facility]/[place] [address] PATHOLOGY AND [facility] * Hemoglobin A1c (05/04/2018 12:50 PM CDT) Pathologist [facility] Hemoglobin A1C 6.0 (H) 4.0 - 5.6 % [facility] DEPARTMENT Comment: OF PATHOLOGY HbA1c cutoffs for diagnosing AND GENOMIC diabetes: MEDICINE 4.0% - 5.6%=normal 5.7% - 6.4%=increased risk for diabetes (prediabetes) >=6.5%=diabetes Goals for glycemic control (ADA 2016) < 7.0%Target for non adults with diabetes. More or less stringent targets may be appropriate for individual patients. <7.5% Target for Children and adolescents with type 1 diabetes. Specimen Blood Performing Organization Address City/[facility] [place] [address] PATHOLOGY [facility] * Comprehensive metabolic panel (05/04/2018 12:50 PM CDT) Pathologist [facility] Sodium 140 135 - 148 mEq/L [facility] DEPARTMENT OF PATHOLOGY AND GENOMIC MEDICINE Potassium 4.2 3.5 - 5.0 mEq/L [facility] DEPARTMENT OF PATHOLOGY AND GENOMIC MEDICINE Chloride 98 98 - 112 mEq/L [facility] DEPARTMENT OF PATHOLOGY AND GENOMIC MEDICINE CO2 29 24 - 31 mEq/L [facility] DEPARTMENT OF PATHOLOGY AND GENOMIC MEDICINE Anion gap 13@ANIO 7 - 15 mEq/L [facility] DEPARTMENT OF PATHOLOGY AND GENOMIC MEDICINE BUN 26 (H) 8 - 23 mg/dL [facility] DEPARTMENT OF PATHOLOGY AND GENOMIC MEDICINE Creatinine 1.21 (H) 0.50 - 0.90 mg/dL [facility] DEPARTMENT OF PATHOLOGY AND GENOMIC MEDICINE Glucose 93 65 - 99 mg/dL [facility] DEPARTMENT OF PATHOLOGY AND GENOMIC MEDICINE Calcium 9.5 8.8 - 10.2 mg/dL [facility] DEPARTMENT OF PATHOLOGY AND GENOMIC MEDICINE Protein 6.9 6.3 - 8.3 g/dL [facility] DEPARTMENT Comment: OF PATHOLOGY [place] AND GENOMIC 4.6-7.0 g/dL MEDICINE 1 week 4.4-7.6 g/dL 7 months-1year 5.1-7.3 g/dL 1-2 years5.6-7 .5 g/dL >3 years6.0-8 .0 g/dL 18-150 6.3-8.3 g/dL Albumin 3.3 (L) 3.5 - 5.0 g/dL [facility] DEPARTMENT OF PATHOLOGY AND GENOMIC MEDICINE A/G ratio 0.9 0.7 - 3.8 [facility] DEPARTMENT OF PATHOLOGY AND GENOMIC MEDICINE Alkaline 92 35 - 104 U/L [facility] DEPARTMENT phosphatase OF PATHOLOGY AND GENOMIC MEDICINE AST 12 10 - 35 U/L [facility] DEPARTMENT OF PATHOLOGY AND GENOMIC MEDICINE ALT 13 5 - 50 U/L [facility] DEPARTMENT OF PATHOLOGY AND GENOMIC MEDICINE Total bilirubin 0.3 0.0 - 1.2 mg/dL [facility] DEPARTMENT OF PATHOLOGY AND GENOMIC MEDICINE Specimen Plasma specimen Performing Organization Address City/State/Zipcode Phone Number [facility] DEPARTMENT OF [address] [place] [address] PATHOLOGY AND GENOMIC MEDICINE * XR Thoracic Spine 3 Vw (03/15/2018 4:07 PM CDT) Specimen Narrative Performed At EXAMINATION: XR THORACIC SPINE 3 [facility] CLINICAL HISTORY: M54.10 Radiculopathysite unspecified, raducular cp COMPARISON:None IMPRESSION: Overall mild degenerative changes of the thoracic spine which appear most pronounced at T6-T7, T7-T8, T8-T9, and T11-T12 where there is mild endplate irregularity, sclerosis, and mild anterior osteophyte formation. Vertebral body heights appear maintained. No suspicious osseous lesion. Alignment is within normal limits. Visualized portions of the cervical spine demonstrate mild retrolisthesis of C3 on C4 and anterolisthesis of C5 on C6 with multilevel facet hypertrophy. [id number] Procedure Note Interface, Radiology Results Incoming - 03/15/2018 5:26 PM CDT EXAMINATION: XR THORACIC SPINE 3 VW CLINICAL HISTORY: M54.10 Radiculopathy site unspecified, raducular cp COMPARISON: None IMPRESSION: Overall mild degenerative changes of the thoracic spine which appear most pronounced at T6-T7, T7-T8, T8-T9, and T11-T12 where there is mild endplate irregularity, sclerosis, and mild anterior osteophyte formation. Vertebral body heights appear maintained. No suspicious osseous lesion. Alignment is within normal limits. Visualized portions of the cervical spine demonstrate mild retrolisthesis of C3 on C4 and anterolisthesis of C5 on C6 with multilevel facet hypertrophy. [id number] Performing Organization Address City/State/Zipcode Phone Number [facility] [address] [place] [address] after 01/16/2018 Insurance Type Payer Benefit Subscriber ID Effective Phone Address Plan / Dates Group Medicare MEDICARE MEDICARE xxxxxxxxxx 2014- ALEJANDRO, PART A AND Present [place] [employer] xxxxxxxxxx 2014- SETH Present Advance Directives Patient has advance care planning documents on file. For more information, rodrick cunningham contact: Alejandro Rossi [address] [place] [address]
[2019-01-17 13:20] VITALS: BP 147/81
--- NOTE | 2019-01-17 14:37 | Operative Report ---
DATE OF PROCEDURE: 01/17/2019 SURGEON: Deonte Trevizo MD PROCEDURE: Esophagogastroduodenoscopy with biopsies and pyloric channel dilatation per TTS balloon dilators. INDICATIONS FOR EGD: Upper abdominal pain, bloating, early satiety. MEDICATION: The patient was done under MAC, please see anesthesiologist's note. PROCEDURE IN DETAIL: With the patient in left lateral decubitus position, flexible fiberoptic Olympus gastroscope was introduced into the esophagus under direct visualization without any difficulty. There was some patchy erythema noted in distal esophagus. The scope was then advanced with ease into the stomach traversing a small sliding hiatal hernia. Mucosa overlying the antrum and the body revealed some patchy erythema and moderate edema and biopsies were obtained and sent to stain for H pylori. Pylorus was somewhat stenotic, but traversed with the scope which was advanced all the way to the second portion of the duodenum. Biopsies were obtained from the second portion and duodenal bulb to rule out sprue. The pylorus was then dilated to size 20 mm per TTS balloon dilators. The scope was then retroflexed and mucosa overlying the fundus and the cardia appeared to be within normal limits. The scope was then straightened out, it was subsequently withdrawn. The patient tolerated procedure well. IMPRESSION: 1. Mild distal esophagitis. 2. Small sliding hiatal hernia. 3. Gastritis, biopsied, biopsies sent to stain for H pylori. 4. Pyloric channel dilated to size 20 mm per TTS balloon dilators. 5. Rule out sprue. PLAN: Follow up histology. Continue Protonix 40 mg one p.o. a.c. b.i.d. and Carafate 1 g p.o. a.c. t.i.d. and at bedtime. Increase Reglan to 10 mg one p.o. a.c. t.i.d. and at bedtime. Deonte Trevizo MD [facility] /[id number] cc: Kevin Moy MD
== END | disposition home or self-care (01) ==
LOC: OR 10:06
PROVIDERS: ATTEND Internal Medicine Gastroenterology
DX: K29.70 Gastritis, unspecified, without bleeding (principal); K20.9 Esophagitis, unspecified; K44.9 Diaphragmatic hernia without obstruction or gangrene; K59.00 Constipation, unspecified; D64.9 Anemia, unspecified; D72.0 Genetic anomalies of leukocytes; I10 Essential (primary) hypertension; J45.909 Unspecified asthma, uncomplicated; Z01.810 Encounter for preprocedural cardiovascular examination; Z01.812 Encounter for preprocedural laboratory examination; Z79.82 Long term (current) use of aspirin; Z87.891 Personal history of nicotine dependence; Z80.0 Family history of malignant neoplasm of digestive organs
CPT/HCPCS: 36415; 43239; 43245; 85025; 88305; 88312; 93005; C1726; J2001; J2250; J2405; J2704; 43450

== ENCOUNTER → 2019-09-21 | Day surgery (SDC) | payer MEDICARE, OTHER ==
[2019-09-18 15:23] LABS: BASOPHILS # (AUTO) 0.1 (0.0-0.1); BASOPHILS % 0.7 % (0.0-1.0); EOSINOPHILS # (AUTO) 0.1 (0.0-0.4); EOSINOPHILS % 1.1 % (0.0-6.0); HEMATOCRIT 48.2 % (34.2-44.1); HEMOGLOBIN 15.6 g/dL (12.0-16.0); LYMPHOCYTES # (AUTO) 3.3 (1.0-3.2); MEAN CORPUSCULAR HEMOGLOBIN 28.3 pg (28-32); MEAN CORPUSCULAR HGB CONC 32.4 g/dL (31-35); MEAN CORPUSCULAR VOLUME 87.5 fL (81-99); MONOCYTES # (AUTO) 1.2 (0.2-0.8); NEUTROPHILS # (AUTO) 7.5 (2.1-6.9); NEUTROPHILS % 60.9 % (38.7-80.0); PLATELET COUNT 452 x10e3/uL (140-360); RED BLOOD COUNT 5.51 x10e6/uL (3.6-5.1); RED CELL DISTRIBUTION WIDTH 12.7 % (11.7-14.4)
[~2019-09-21] MED LIST changes: -DONNATAL/LIDOCAINE/MAALOX 30 ML SUSP PO ONE; +EPHEDRINE SULFATE INJ 50 MG/ML VIAL ONE; -FENTANYL CITRATE/PF 100MCG/2 ML INJ ONE; +FOLIC ACID PO; +HYOSCYAMINE 0.125 MG TAB ONE; +METOCLOPRAMIDE HCL 10 MG/2ML VIAL ONE; -MIDAZOLAM HCL 2 MG/2 ML VIAL ONE; -ONDANSETRON HCL INJ 2MG/ML 2ML 2 MG/ML VIAL ONE; +[UNRECOGNIZED DRUG - CODE] PO
[2019-09-21 14:00] VITALS: BP 125/89
[2019-09-21 14:45] LABS: WBC,FECAL (FECAL LACTOFERRIN) POSITIVE (NEGATIVE)
--- NOTE | 2019-09-21 16:31 | Operative Report ---
DATE OF PROCEDURE: 09/21/2019 SURGEON: Deonte Trevizo MD PROCEDURES: EGD with biopsies and colonoscopy with biopsies. INDICATIONS FOR EGD: Early satiety, decreased p.o. intake due to the aforementioned, marked weight loss. INDICATIONS FOR COLONOSCOPY: Crampy lower abdominal pain, diarrhea. MEDICATIONS: The patient was done under MAC, please see anesthesiologist's note. PROCEDURE IN DETAIL: With the patient in the left lateral decubitus position, a flexible fiberoptic Olympus gastroscope was introduced into the esophagus under direct visualization without any difficulty. There was some patchy erythema noted in distal esophagus. The scope was then advanced with ease into the stomach, mucosa overlying the antrum and the body revealed some patchy erythema and [id number] edema, and biopsies were obtained and sent to stain for H. pylori. Pylorus was of normal contour and shape, was intubated with ease and the scope was advanced all the way to the second portion of the duodenum. Biopsies were obtained from the proximal second portion and duodenal bulb to rule out sprue. The scope was then withdrawn back into the stomach and retroflexed, and mucosa overlying the fundus and the cardia appeared to be within normal limits. The scope was then straightened out, it was subsequently withdrawn, and the patient tolerated the procedure well. IMPRESSION: 1. Mild distal esophagitis. 2. Gastritis, biopsied, biopsies sent to stain for Helicobacter pylori. 3. Rule out sprue. PLAN: Follow up histology. Continue Protonix 40 mg 1 p.o. before meals b.i.d. Change Reglan to 10 mg 1 p.o. before meals t.i.d. and at bedtime. The patient was then turned around and after adequate lubrication of the anal canal, the flexible fiberoptic Olympus colonoscope was inserted into the rectum with ease and advanced to the distal sigmoid colon. It could not be advanced any further due to very sharp and fixed angulation in the distal sigmoid. It was subsequently withdrawn. The EGD scope was re-introduced and was advanced all the way to 100 cm from the anal verge. Mucosa overlying the distal transverse as well as the sigmoid colon and the rectum revealed some patchy mild inflammatory changes and multiple random biopsies were obtained. Some minimal diverticulosis was noted. The scope was then retroflexed into the distal rectum and small internal hemorrhoids were noted, none of which was actively bleeding. The scope was then straightened out and it was subsequently withdrawn after securing an adequate stool specimen that was sent for the appropriate stool studies. The patient tolerated the procedure well. IMPRESSION: 1. Sigmoid colon sharply angulated, could not be negotiated with regular scope. Colonoscopy was then done with EGD scope, which was advanced to 100 cm from the anal verge. 2. Mild patchy left-sided colitis. 3. Diverticulosis, minimal. 4. Proctitis, mild. 5. Internal hemorrhoids, none actively bleeding. PLAN: Follow up histology. Follow up stool studies. Initiate Bentyl 10 mg 1 p.o. q.i.d. Check IBD panel, CRP, and sedimentation rate. Initiate a gluten-free diet. Check celiac panel. If the patient continues with severe crampy abdominal pain, diarrhea, and early satiety, will probably benefit from a diagnostic laparoscopy. Deonte Trevizo MD [facility]/MODL /[id number] cc: Kevin Moy MD
[2019-09-22 14:54] LABS: C DIFFICILE TOXIN A&B AMP PROB NEGATIVE (NEGATIVE)
[2019-09-26 06:09] LABS: ENDOMYSIAL ANTIBODIES, IGA Negative (Negative)
== END | disposition home or self-care (01) ==
LOC: OR 09:24
PROVIDERS: ATTEND Internal Medicine Gastroenterology
DX: K51.50 Left sided colitis without complications (principal); Z86.010 Personal history of colon polyps; K29.60 Other gastritis without bleeding; K20.9 Esophagitis, unspecified; K56.609 Unspecified intestinal obstruction, unspecified as to partial versus complete obstruction; K57.30 Diverticulosis of large intestine without perforation or abscess without bleeding; K21.9 Gastro-esophageal reflux disease without esophagitis; K62.89 Other specified diseases of anus and rectum; K64.8 Other hemorrhoids; R63.4 Abnormal weight loss; I11.0 Hypertensive heart disease with heart failure; I50.9 Heart failure, unspecified; F32.9 Major depressive disorder, single episode, unspecified; F41.9 Anxiety disorder, unspecified; Z01.810 Encounter for preprocedural cardiovascular examination; Z01.812 Encounter for preprocedural laboratory examination; Z79.82 Long term (current) use of aspirin; Z80.0 Family history of malignant neoplasm of digestive organs
CPT/HCPCS: 36415 ×2; 43239; 45380; 82784; 83516; 83630; 83993; 85025; 85651; 86140; 86256 ×2; 86671; 87045; 87177; 87328; 87493; 88305; 88312; 93005; J2001; J2704; J2765; 45378

== ENCOUNTER → 2020-02-23 | Outpatient (CLI) | payer MEDICARE, OTHER ==
[~2020-02-23] MED LIST changes: -EPHEDRINE SULFATE INJ 50 MG/ML VIAL ONE; -HYOSCYAMINE 0.125 MG TAB ONE; +IOPAMIDOL 370 MG/ML 200 ML INFUS..BTL INJ ONE; -LIDOCAINE HCL 2% LOCAL INJ 5 ML SDV VIAL INJ ONE; -METOCLOPRAMIDE HCL 10 MG/2ML VIAL ONE; -PROPOFOL IV EMULSION 10 MG/ML 50 ML VIAL ONE; +SODIUM CHLORIDE 0.9% 50ML 50 ML ONE
[2020-02-23 09:59] LABS: BLOOD UREA NITROGEN 13 mg/dL (7-26); BUN/CREATININE RATIO 16 (6-25); CREATININE, SERUM 0.81 mg/dL (0.57-1.11); EST GLOMERULAR FILTRATION RATE > 60 ML/MIN (60-)
--- NOTE | 2020-02-23 10:40 | Diagnostic Imaging Report ---
EXAM: CT Abdomen and Pelvis WITH intravenous contrast INDICATION: Cachexia COMPARISON: None. TECHNIQUE: Abdomen and pelvis were scanned utilizing a multidetector helical scanner from the lung base to the pubic symphysis after administration of IV contrast. Coronal and sagittal reformations were obtained. Routine protocol was performed. Scan was performed during portal venous phase. IV CONTRAST: 100mL of Isovue 370 ORAL CONTRAST: Water RADIATION DOSE: Total DLP: 203 mGy*cm Dose modulation, iterative reconstruction, and/or weight based adjustment of the mA/kV was utilized to reduce the radiation dose to as low as reasonably achievable. FINDINGS: LOWER THORAX: Normal. HEPATOBILIARY: Hepatic steatosis. No focal liver lesion. No biliary ductal dilation. Status post cholecystectomy. SPLEEN: No splenomegaly. PANCREAS: No focal masses or ductal dilatation. ADRENALS: No adrenal nodules. KIDNEYS/URETERS: No hydronephrosis, stones, or solid mass lesions. PELVIC ORGANS/BLADDER: Unremarkable. PERITONEUM / RETROPERITONEUM: No free air or fluid. LYMPH NODES: No lymphadenopathy. VESSELS: Scattered atherosclerotic calcifications of the nonaneurysmal abdominal aorta and major branches. GI TRACT: Mild diverticulosis. No CT evidence of diverticulitis. No abnormal bowel thickening. No bowel obstruction. Status post appendectomy. BONES AND SOFT TISSUES: No acute osseous injury. No suspicious lytic or blastic lesions. IMPRESSION: No acute findings in the abdomen or pelvis. Hepatic steatosis. Diverticulosis without CT evidence of diverticulitis. Signed by: Jamie Jensen MD on 02/23/2020 10:36 AM
== END ==
LOC: CT 09:26
PROVIDERS: ATTEND Family Medicine
DX: R64 Cachexia (principal)
CPT/HCPCS: 36415; 74177; 82565; 84520; Q9967

== ENCOUNTER 2020-03-15 20:11 | Inpatient (IN) | payer MEDICARE, OTHER ==
[~2020-03-15] VITALS: Ht 152.4 cm; Wt 65.8 kg
[~2020-03-15 20:11] MED LIST changes: +ETOMIDATE 2 MG/ML 10 ML INJ IV ONE; -IOPAMIDOL 370 MG/ML 200 ML INFUS..BTL INJ ONE; +MIDAZOLAM HCL 2 MG/2 ML VIAL ONE; -SODIUM CHLORIDE 0.9% 50ML 50 ML ONE; +SUCCINYLCHOLINE CHLORIDE 20 MG/ML 10ML VIAL ONE; +VECURONIUM BROMIDE FOR INJ 20 MG VIAL ONE; +WATER STERILE 10 ML VIAL ONE
[2020-03-15] MEDS ORDERED: ONDANSETRON HCL INJ 2MG/ML 2ML 2 MG/ML VIAL IV PRN ×2 (20:30→23:45)
--- NOTE | 2020-03-15 20:44 | Emergency Department Note ---
History of Present Illnes History of Present Illness Chief Complaint: Abdominal Complaints History of Present Illness This is a 69 year old female Chief Complaint Comment pt came in via [facility] for c/o nausea and vomiting that started this morning, as per pt, she has not been able to eat or drink anything for the past few days. She has had this multiple times. Recently had a CT which was unremarkable. Historian: Patient Arrival Mode: [facility] EMS Treatment DIRECTOR CLINICAL OPERATIONS: IV Chemical Weigher Required: No Onset (how long ago): day(s) (3) Location: abdomen Quality: Nausea, vomiting Radiation: Reports non-radiation Severity: severe Onset quality: gradual Duration (how long): day(s) (3) Timing of current episode: constant Progression: worsening Chronicity: new Context: Denies recent illness Relieving factors: none Exacerbating factors: none Associated symptoms: Reports denies other symptoms Treatments prior to arrival: none Past Medical/Family History Physician Review I have reviewed the patient's past medical and family history. Any updates have been documented here. Past Medical History Recent Fever: Yes Clinical Suspicion of Infectio: No New/Unexplained Change in Ment: No Past Medical History: Hypertension Other Medical History: GERD rapid heartbeat? Other Surgery: esophageal dilatation Other Last Tetanus: unk Review of Systems Review of Systems Constitutional: Reports no symptoms EENTM: Reports no symptoms Cardiovascular: Reports no symptoms Respiratory: Reports no symptoms Gastrointestinal: Reports as per HPI, Reports nausea, Reports vomiting Genitourinary: Reports no symptoms Musculoskeletal: Reports no symptoms Integumentary: Reports no symptoms Neurological: Reports no symptoms Psychological: Reports no symptoms Endocrine: Reports no symptoms Hematological/Lymphatic: Reports no symptoms Physical Exam Related Data Allergies: Coded Allergies: No Known Allergies (Unverified , 02/10/17) Triage Vital Signs Vital Signs Date Time Temp Pulse Resp B/P (MAP) Pulse Ox O2 Delivery O2 Flow Rate FiO2 03/15/20 20:14 Room Air 03/15/20 20:35 98.6 90 17 97 Vital signs reviewed: Yes Physical Exam CONSTITUTIONAL Constitutional: Present well-developed, Present well-nourished HENT HENT: Present normocephalic, Present atraumatic, Present oropharynx clear/moist, Present nose normal HENT L/R: Present left ext ear normal, Present right ext ear normal EYES Eyes: Reports PERRL, Reports conjunctivae normal NECK Neck: Present ROM normal PULMONARY Pulmonary: Present effort normal, Present breath sounds normal CARDIOVASCULAR Cardiovascular: Present regular rhythm, Present heart sounds normal, Present capillary refill normal, Present normal rate GASTROINTESTINAL Abdominal: Present soft, Present nontender, Present bowel sounds normal GENITOURINARY Genitourinary: Present exam deferred SKIN Skin: Present warm, Present dry MUSCULOSKELETAL Musculoskeletal: Present ROM normal NEUROLOGICAL Neurological: Present alert, Present oriented x 3, Present no gross motor or sensory deficits PSYCHOLOGICAL Psychological: Present mood/affect normal, Present judgement normal Procedures 12 Lead ECG Interpretation ECG Interpretation : Chemical Weigher: Interpreted by ED physician Date: Mar 15, 2020 Rhythm: sinus rhythm Rate: normal QRS axis: normal ST segments normal: Yes T waves normal: Yes Clinical Impression: non-specific ECG Assessment & Plan Medical Decision Making MDM 69-year-old female who presents for nausea and vomiting. This is an ongoing issue for her. Examination shows an actively vomiting female. Vital signs stable, within acceptable limits. Workup significant for right-sided pneumonia. There is no evidence of 30. She was given crystalloid fluid bolus and will be started on Zosyn. Sepsis suspected at time of antibiotic order. Lactic acid was repeated if initial >2 30cc/kg crystalloid bolus given Vasopressors were not indicated Discussed with Dr. Gonzalez who agreed to admit. Stable for transfer to floor. Reassessment Reassessment time: 23:03 Reassessment Still nauseated Assessment & Plan Final Impression: (1) Pneumonia Depart Disposition: ADMITTED Last Vital Signs Date Time Temp Pulse Resp B/P (MAP) Pulse Ox O2 Delivery O2 Flow Rate FiO2 03/15/20 20:35 98.6 90 17 145/69 97 Room Air Home Meds Reported Medications [Folic Acid] No Conflict Check, PO HS 09/18/19 Cyanocobalamin (Vitamin B-12) (Vitamin B-12) 1,000 Mcg Lozenge, 1000 MCG PO DAILY 09/18/19 Pantoprazole Sodium* (PROTONIX) 40 Mg Tablet.dr, 40 MG PO BID, TAB 01/17/19 Quetiapine Fumarate (QUETIAPINE FUMARATE) 25 Mg Tablet, 12.5 HS 01/17/19 Metoclopramide Hcl (METOCLOPRAMIDE HCL) 10 Mg Tablet, 10 MG PO HS, TAB 01/17/19 Clonazepam (CLONAZEPAM) 0.5 Mg Tablet, 0.25 MG PO BID, TAB 01/17/19 Ondansetron Hcl (ONDANSETRON ODT) 4 Mg/Udtablet Tabdp, 4 MG PO PRN for NAUSEA AND VOMITING 11/13/16 Metoprolol Tartrate (METOPROLOL TARTRATE) 25 Mg Tablet, 25 MG PO BID, TAB 06/08/16 Clonidine Hcl (CLONIDINE HCL) 0.1 Mg Tablet, 1 TAB PO BID, #60 TAB 06/08/16 Zolpidem Tartrate (ZOLPIDEM TARTRATE) 10 Mg Tablet, 10 MG PO HS, #30 TAB 06/08/16 Aspirin (ASPIRIN) 81 Mg Tab.chew, 81 MG PO BID 06/08/16 Medications in the ED Ondansetron HCl 4 mg Q4H PRN IV NAUSEA AND VOMITING; Start 03/15/20 at 20:30; Stop 04/14/20 at 20:29 Sodium Chloride 1,000 ml @ 100 mls/hr Q10H IV ; Start 03/15/20 at 20:30; Stop 04/14/20 at 20:29 LANCE MARCH MD Mar 15, 2020 20:44
[2020-03-15 20:57] LABS: BASOPHILS # (AUTO) 0.2 (0.0-0.1); BASOPHILS % 0.6 % (0.0-1.0); EOSINOPHILS % 0.1 % (0.0-6.0); HEMATOCRIT 42.7 % (34.2-44.1); HEMOGLOBIN 13.6 g/dL (12.0-16.0); LYMPHOCYTES # (AUTO) 1.9 (1.0-3.2); MEAN CORPUSCULAR HGB CONC 31.9 g/dL (31-35); MONOCYTES # (AUTO) 1.9 (0.2-0.8); MONOCYTES % 6.1 % (4.4-11.3); NEUTROPHILS # (AUTO) 26.9 (2.1-6.9); NEUTROPHILS % 86.3 % (38.7-80.0); PLATELET COUNT 531 x10e3/uL (140-360); RED BLOOD COUNT 4.69 x10e6/uL (3.6-5.1); RED CELL DISTRIBUTION WIDTH 13.3 % (11.7-14.4)
[2020-03-15] MEDS: SODIUM CHLORIDE 0.9% 1000ML 1,000 ML IV SCH (21:06)
[2020-03-15 21:11] LABS: CLARITY,URINE CLEAR (CLEAR); COLOR,URINE YELLOW (YELLOW)
[2020-03-15 21:12] LABS: BILIRUBIN,URINE MODERATE (NEGATIVE); KETONES,URINE 3+ (NEGATIVE); LEUKOCYTE ESTERASE ,URINE TRACE (NEGATIVE); NITRITE,URINE NEGATIVE (NEGATIVE); PROTEIN,URINE DIPSTICK 1+ (NEGATIVE); URINE UROBILINOGEN 1 mg/dL (0.2 - 1)
[2020-03-15 21:22] LABS: ALANINE AMINOTRANSFERASE 8 IU/L (0-55); ALBUMIN 3.3 g/dL (3.5-5.0); ALBUMIN/GLOBULIN RATIO 1.1 (0.8-2.0); ALKALINE PHOSPHATASE 70 IU/L (40-150); ANION GAP 21.2 mmol/L (8-16); BLOOD UREA NITROGEN 12 mg/dL (7-26); BUN/CREATININE RATIO 15 (6-25); CALCIUM 8.5 mg/dL (8.4-10.2); CARBON DIOXIDE 19 mmol/L (22-29); CHLORIDE 106 mmol/L (98-107); CREATININE, SERUM 0.78 mg/dL (0.57-1.11); EST GLOMERULAR FILTRATION RATE > 60 ML/MIN (60-); GLUCOSE 114 mg/dL (74-118); POTASSIUM 3.2 mmol/L (3.5-5.1); SODIUM 143 mmol/L (136-145)
[2020-03-15 21:23] LABS: BACTERIA,URINE FEW /HPF; EPITHELIAL CELLS,URINE FEW /LPF; MUCUS,URINE MODERATE (RARE); RBC,URINE 0-5 /HPF (0-5)
[2020-03-15] MEDS ORDERED: SODIUM CHLORIDE 0.9% 50ML 50 ML ONE (21:50)
[2020-03-15] MEDS ORDERED: IOPAMIDOL 370 MG/ML 200 ML INFUS..BTL INJ ONE (21:50)
--- NOTE | 2020-03-15 22:19 | Diagnostic Imaging Report ---
EXAM: CT Abdomen and Pelvis WITH contrast INDICATION: ^Y ^abd pain ^[id number] ^[id number] COMPARISON: CT dated 02/23/2020 TECHNIQUE: Abdomen and pelvis were scanned utilizing a multidetector helical scanner from the lung base to the pubic symphysis after administration of IV contrast. Coronal and sagittal reformations were obtained. Dose modulation, iterative reconstruction, and/or weight based adjustment of the mA/kV was utilized to reduce the radiation dose to as low as reasonably achievable. Routine protocol was performed. Scan was performed when during portal venous phase. IV CONTRAST: 100 mL of Isovue-370 ORAL CONTRAST: Water COMPLICATIONS: None RADIATION DOSE: Total DLP: 226.59 mGy*cm Estimated effective dose: (DLP x 0.015 x size factor) mSv CTDIvol has been reviewed. It is below the limits set by the Radiation Protocol Committee (RPC). FINDINGS: LINES and TUBES: None. LOWER THORAX: Medial right middle lobe airspace opacity. HEPATOBILIARY: No focal hepatic lesions. No biliary ductal dilation. GALLBLADDER: Surgically absent. SPLEEN: No splenomegaly. PANCREAS: No focal masses or ductal dilatation. ADRENALS: No adrenal nodules KIDNEYS/URETERS: Kidneys enhance symmetrically. No hydronephrosis. No cystic or solid mass lesions. No stones. GI TRACT: No abnormal distention, wall thickening, or evidence of bowel obstruction. Appendix is not clearly identified. There is however no fat stranding or adenopathy in the right lower quadrant to suggest appendicitis. PELVIC ORGANS/BLADDER: Unremarkable. Hysterectomy. LYMPH NODES: No lymphadenopathy. VESSELS: There is mild atherosclerotic disease in the aorta and major arterial branches. PERITONEUM / RETROPERITONEUM: No free air or fluid. BONES: Unremarkable. SOFT TISSUES: Unremarkable. IMPRESSION: Medial right middle lobe airspace opacity, concerning for pneumonia in the appropriate clinical context. No acute inflammatory process in the abdomen/pelvis. Signed by: Dr. Song Grove MD on 03/15/2020 10:16 PM
--- OUTSIDE RECORDS SUMMARY | 2020-03-15 22:29 | XMS REPORT | Continuity of Care Document ---
Author Author [facility] t Organization [facility] Address [address] [place] [address] Phone Unavailable Care Team Providers Care [employer] Designer Name Role Phone XENA VICTOR, Arthur BENEDICT PCP Annabel Gallo Attphys Unavailable Arthur MCCALLUM Attphys Unavailable Elva MUÑOZ Attphys Unavailable Payers Payer Name Policy Type Policy Number Effective Date Expiration Date S ource Medicare A & B [id number] 2014 00:00:00 [facility] [place] Indemnity [id number] 2014 00:00:00 [facility] Problems Condition Name Condition Details Condition Category Status Onset Date Resolution Date Last Treatment Date Treating Clinician Comments Source Iron deficiency anemia Iron deficiency anemia Disease Active 2018-02-08 00:00:00 [facility] Sprain of left knee Sprain of left knee Problem Active [facility] Allergies, Adverse Reactions, Alerts This patient has no known allergies or adverse reactions. Family History Family Member Diagnosis Comments Start Date Stop Date Source Natural mother Liver cancer [place] [employer] Social History Social Habit Start Date Stop Date Quantity Comments Source Sex Assigned At [facility] [employer] Alcohol intake 2018-05-04 00:00:00 2018-05-04 00:00:00 Current non-drinker of alcohol (finding) Alejandro Rossi Smoking Status Start Date Stop Date Source Former smoker 2018-05-04 00:00:00 2018-05-04 00:00:00 Alejandro Rossi Medications Ordered Medication Name Filled Medication Name Start Date Stop Da te Current Medication? Ordering Clinician Indication Dosage Frequency Signature (SIG) Comments Components Source aspirin (ECOTRIN) 81 MG enteric coated tablet 2018-05-04 15:44:5 3 Yes 81mg QD Take 81 mg by mouth daily. H dhiraj Rossi promethazine (PHENERGAN) 25 MG tablet 2018-05-04 15:44:53 Y es 25mg Q6H Take 25 mg by mouth every 6 (six) hours as needed for nausea or vomiting. Alejandro Rossi zolpidem (AMBIEN) 10 mg tablet 2018-01-31 00:00:00 Yes 10mg QD Take 10 mg by mouth nightly as needed. Alejandro Ohara ethodist sucralfate (CARAFATE) 1 gram tablet 2018-01-20 00:00:00 Yes TAKE 1 TABLET BY MOUTH 3 TIMES A DAY BEFORE MEALS & AT BEDTIME Alejandro Rossi losartan-hydrochlorothiazide (HYZAAR) 50-12.5 mg per tablet 2017-12-24 00:00:00 Yes TAKE 1 TABLET BY MOUTH EVERY DAY 90 Alejandro Rossi dicyclomine (BENTYL) 20 mg tablet 2017-12-14 00:00:00 Ye s 20mg Q.[id number] Take 20 mg by mouth 3 (three) times a day as needed. Alejandro Rossi pantoprazole (PROTONIX) 40 MG EC tablet 2017-12-03 00:00:00 Yes 40mg Q.5D Take 40 mg by mouth 2 (two) times a day. Alejandro Rossi clonIDINE (CATAPRES) 0.1 MG tablet 2017-11-29 00:00:00 Yes .1mg Q.5D Take 0.1 mg by mouth 2 (two) times a day. Alejandro Rossi metoprolol tartrate (LOPRESSOR) 25 mg tablet 2017-11-26 00:00:00 Yes 25mg Q.5D Take 25 mg by mouth 2 (two) times a day. Alejandro Rossi montelukast (SINGULAIR) 10 mg tablet 2017-11-23 00:00:00 Ye s 1 TABLET IN THE EVENING ONCE A DAY ORALLY 30 DAY(S) Alejandro Rossi Aspirin 81 Mg Tab.chew Aspirin 81 Mg Tab.chew Yes 81 Twice A Day [facility] Aspirin (Aspirin Ec) 81 Mg Tablet. Aspirin (Aspirin Ec) 81 Mg Tab let. Yes 81 Daily [facility] Bevespi Aeroshpere Bevespi Aeroshpere Yes [facility] Bifidobacterium Infantis (Align) 4 Mg Capsule Bifidoba cterium Infantis (Align) 4 Mg Capsule Yes 1 Daily [facility] Clonidine Hcl 0.1 Mg Tablet Clonidine Hcl 0.1 Mg Tablet Yes 1 Twice A Day [facility] Dicyclomine Hcl 20 Mg Tablet Dicyclomine Hcl 20 Mg Tablet Y es 20 Three Times A Day as needed for Na [facility] Losartan/Hydrochlorothiazide (Losartan-Hctz 50-12.5 Mg Tab) 1 Each Tablet Losartan/Hydrochlorothiazide (Losartan-Hctz 50-12.5 Mg Tab) 1 Each Tablet Yes 1 Daily [facility] Metoprolol Tartrate 25 Mg Tablet Metoprolol Tartrate 25 Mg Tablet Yes 25 Twice A Day [facility] Omeprazole 40 Mg Capsule. Omeprazole 40 Mg Capsule. Yes 20 Daily [facility] Ondansetron Hcl (Ondansetron Odt) 4 Mg/Udtablet Tabdp Ondansetron Hcl (Ondansetron Odt) 4 Mg/Udtablet Tabdp Yes 4 Twice A Day for Nausea And Vomiting [facility] Sertraline Hcl 50 Mg Tablet Sertraline Hcl 50 Mg Tablet Yes 50 Daily [facility] Zolpidem Tartrate 10 Mg Tablet Zolpidem Tartrate 10 Mg Tablet Yes 10 Bedtime [facility] Hyoscyamine Sulfate (Levsin) 0.125 Mg Tablet, 1 Tab Or al Hyoscyamine Sulfate (Levsin) 0.125 Mg Tablet, 1 Tab Oral 2017-02-10 00:00:00 No 1 Every 4 Hours for Abdominal Pain [facility] Promethazine Hcl 25 Mg Tablet, 25 Mg Oral Promethazine Hcl 25 Mg Tablet, 25 Mg Oral 2017-02-10 00:00:00 No 25 As Needed [facility] Hydrocodone Bit/Acetaminophen (Hydrocodo n-Acetaminophen 5-300) 1 Each Tablet, 1 Tab Oral Hydrocodone Bit/Acetaminophen (Hydrocodo n-Acetaminophen 5-300) 1 Each Tablet, 1 Tab Oral 2017-02-08 00:00:00 No 1 As Ne eded [facility] Levocetirizine Dihydrochloride 5 Mg Tablet, 1 Tab Oral Levocetirizine Dihydrochloride 5 Mg Tablet, 1 Tab Oral 2017-02-08 00:00:00 No 1 Daily [facility] Dicyclomine Hcl (Bentyl) 10 Mg Capsule, 20 Mg Oral Dic yclomine Hcl (Bentyl) 10 Mg Capsule, 20 Mg Oral 2016-11-13 00:00:00 No 20 T hree Times A Day [facility] Meloxicam 7.5 Mg Tablet, 7.5 Mg Oral Meloxicam 7.5 Mg Tablet, 7. 5 Mg Oral 2016-11-13 00:00:00 No 7.5 Daily [facility] Diclofenac Epolamine (Flector) 1 Each Adh..patch, 50 M g Oral Diclofenac Epolamine (Flector) 1 Each Adh..patch, 50 Mg Oral 2016-08-12 00:00:00 No 50 Twice A Day [facility] Dicyclomine Hcl 10 Mg Capsule, 10 Mg Oral Dicyclomine Hcl 10 Mg Capsule, 10 Mg Oral 2016-08-12 00:00:00 No 10 Daily [facility] Fluoxetine Hcl 20 Mg Capsule, 20 Mg Oral Fluoxetine Hc l 20 Mg Capsule, 20 Mg Oral 2016-08-12 00:00:00 No 20 Daily [facility] Losartan/Hydrochlorothiazide (Losartan-H ctz 100-12.5 Mg Tab) 1 Each Tablet, 1 Tab Oral Losartan/Hydrochlorothiazide (Losartan-H ctz 100-12.5 Mg Tab) 1 Each Tablet, 1 Tab Oral 2016-08-12 00:00:00 No 1 Bedti me [facility] Ondansetron (Zofran Odt) 4 Mg Tab.rapdis, 8 Mg Subling ual Ondansetron (Zofran Odt) 4 Mg Tab.rapdis, 8 Mg Sublingual 2016-08-12 00:00:00 No 8 Twice A Day [facility] Procedures Procedure Date / Time Performed Performing Clinician Sourc e Computed tomography of abdomen and pelvis with contrast 2017 00:00:00 SIVAKUMAR MUÑOZ [facility] Magnetic resonance imaging of lumbar spine without contrast 2017-08-04 00:00:00 MARICHUY MCCALLUM [facility] X-ray of chest, two views 2017-06-02 00:00:00 MARICHUY MCCALLUM [facility] EGD BIOPSY SINGLE/MULTIPLE 2017-02-10 00:00:00 JOI BUCHANAN [facility] DILATE ESOPHAGUS 1/MULT PASS 2017-02-10 00:00:00 JOI BUCHANAN [facility] Plan of Care Planned Activity Planned Date Details Comments Source Future Scheduled Test 2020-04-02 00:00:00 INFLUENZA VACCINE [code = INFLUENZA VACCINE] [facility] Scheduled Test 2014 00:00:00 65+ PNEUMOCOCCAL V ACCINE (1 of 2 - PCV13) [code = 65+ PNEUMOCOCCAL VACCINE (1 of 2 - PCV13)] [facility] Future Scheduled Test 1999 00:00:00 BREAST CANCER SCRE ENING [code = BREAST CANCER SCREENING] [facility] Scheduled Test 1999 00:00:00 COLONOSCOPY SCREEN ING [code = COLONOSCOPY SCREENING] [facility] Scheduled Test 1999 00:00:00 SHINGLES VACCINES (#1) [code = SHINGLES VACCINES (#1)] [facility] Encounters Start Date/Time End Date/Time Encounter Type Admission Type [facility] Facility Care Department Encounter ID Source 2017-09-11 04:21:00 2017-09-11 06:44:00 Departed Emergency Room ER SIVAKUMAR MUÑOZ [facility] [id number] [facility] 2017-08-04 10:00:00 2017-08-04 10:00:00 Registered Clinic MARICHUY CORRIGAN [facility] [id number] [facility] 2017-06-02 16:51:00 2017-06-02 16:51:00 Registered Clinic MARICHUY CORRIGAN [facility] [id number] [facility] 2017-03-04 10:32:00 2017-03-04 10:32:[address] [facility] [id number] [facility] 2017-02-10 09:24:00 2017-02-10 09:24:00 Registered Surgical Day Care [facility] [id number] [facility] Results Test Description Test Time Test Comments Results Result Comments Source CT ABDOMEN/PELVIS W 2020-03-15 22:11:00 [facility] [address] [address] Patient Name: MARGARETTE COLÓN MR #: [id number] : 1950 Age/Sex: 69/F Req #: [id number] Adm Physician: Ordered by: Lance Gallo MD Report #: [id number] Location: ER Room/Bed: Procedure: [id number] CT/CT ABDOMEN/PELVIS W Exam Date: 03/15/20 Exam Time: 2129 REPORT STATUS: Signed EXAM: CT Abdomen and Pelvis WITH contrast INDICATION: Y abd pain [id number] COMPARISON: CT dated 02/23/2020 TECHNIQUE: Abdomen and pelvis were scanned utilizing a multidetector helical scanner from the lung base to the pubic symphysis after administration of IV contrast. Coronal and sagittal reformations were obtained. Dose modulation, iterative reconstruction, and/or weight based adjustment of the mA/kV was utilized to reduce the radiation dose to as low as reasonably achievable. Routine protocol was performed. Scan was performed when during portal venous phase. IV CONTRAST: 100 mL of Isovue-370 ORAL CONTRAST: Water COMPLICATIONS: None RADIATION DOSE: Total DLP: 226.59 mGy*cm Estimated effective dose: (DLP x 0.015 x size factor) mSv CTDIvol has been reviewed. It is below the limits set by the Radiation Protocol Committee (RPC). FINDINGS: LINES and TUBES: None. LOWER THORAX: Medial right middle lobe airspace opacity. HEPATOBILIARY: No focal hepatic lesions. No biliary ductal dilation. GALLBLADDER: Surgically absent. SPLEEN: No splenomegaly. PANCREAS: No focal masses or ductal dilatation. ADRENALS: No adrenal nodules KIDNEYS/URETERS: Kidneys enhance symmetrically. No hydronephrosis. No cystic or solid mass lesions. No stones. GI TRACT: No abnormal distention, wall thickening, or evidence of bowel obstruction. Appendix is not clearly identified. There is however no fat stranding or adenopathy in the right lower quadrant to suggest appendicitis. PELVIC ORGANS/BLADDER: Unremarkable. Hysterectomy. LYMPH NODES: No lymphadenopathy. VESSELS: There is mild atherosclerotic disease in the aorta and major arterial branches. PERITONEUM / RETROPERITONEUM: No free air or fluid. BONES: Unremarkable. SOFT TISSUES: Unremarkable. IMPRESSION: Medial right middle lobe airspace opacity, concerning for pneumonia in the appropriate clinical context. No acute inflammatory process in the abdomen/pelvis. Signed by: Dr. Song Souza MD on 03/15/2020 10:16 PM Dictated By: SONG SOUZA MD 15 Transcribed By: KYM on 03/15/202215 COPY TO: LANCE GALLO MD CT ABDOMEN/PELVIS W 2020-02-23 10:32:00 [address] [place] [address] Patient Name: MARGARETTE COLÓN MR #: [id number] : 1950 Age/Sex: 69/F Req #: [id number] Adm Physician: Ordered by: MARICHUY MCCALLUM MD Report #: [id number] Location: CT Room/Bed: Procedure: [id number] CT/CT ABDOMEN/PELVIS W Exam Date: 02/23/20 Exam Time: 1016 REPORT STATUS: Signed EXAM: CT Abdomen and Pelvis WITH intravenous contrast INDICATION: Cachexia COMPARISON: None. TECHNIQUE: Abdomen and pelvis were scanned utilizing a multidetector helical scanner from the lung base to the pubic symphysis after administration of IV contrast. Coronal and sagittal reformations were obtained. Routine protocol was performed. Scan was performed during portal venous phase. IV CONTRAST: 100mL of Isovue 370 ORAL CONTRAST: Water RADIATION DOSE: Total DLP: 203 mGy*cm Dose modulation, iterative reconstruction, and/or weight based adjustment of the mA/kV was utilized to reduce the radiation dose to as low as reasonably achievable. FINDINGS: LOWER THORAX: Normal. HEPATOBILIARY: Hepatic steatosis. No focal liver lesion. No biliary ductal dilation. Status post cholecystectomy. SPLEEN: No splenomegaly. PANCREAS: No focal masses or ductal dilatation. ADRENALS: No adrenal nodules. KIDNEYS/URETERS: No hydronephrosis, stones, or solid mass lesions. PELVIC ORGANS/BLADDER: Unremarkable. PERITONEUM / RETROPERITONEUM: No free air or fluid. LYMPH NODES: No lymphadenopathy. VESSELS: Scattered atherosclerotic calcifications of the nonaneurysmal abdominal aorta and major branches. GI TRACT: Mild diverticulosis. No CT evidence of diverticulitis. No abnormal bowel thickening. No bowel obstruction. Status post appendectomy. BONES AND SOFT TISSUES: No acute osseous injury. No suspicious lytic or blastic lesions. IMPRESSION: No acute findings in the abdomen or pelvis. Hepatic steatosis. Diverticulosis without CT evidence of diverticulitis. Signed by: Hilario Duval MD on 02/23/2020 10:36 AM Dictated By: HILARIO DUVAL MD 1036 Transcribed By: KYM on 02/23/20 1036 COPY TO: MARICHUY MCCALLUM MD ABDOMEN 2 VIEW 2019-01-06 07:45:00 [place] [address] Patient Name: MARGARETTE COLÓN MR #: [id number] : 1950 Age/Sex: 68/F Req #: [id number] Adm Physician: Ordered by: MARICHUY MCCALLUM MD Report #: [id number] Location: [facility] Room/Bed: Procedure: [id number] DX/ABDOMEN 2 VIEW Exam Date: 01/05/19 Exam Time: 1700 REPORT STATUS: Signed Abdomen, 2 views. History: Abdominal pain with constipation. Findings: The intestinal gas pattern is nonobstructive. There no masses or abnormal calcifications. Clips in the right upper quadrant of the abdomen are present. Pelvic calcifications appear compatible with phleboliths. The osseous structures are intact. IMPRESSION: No acute abdominal abnormality. Signed by: Dr. David Peña DO on 01/06/2019 7:46 AM Dictated By: DAVID PEÑA DO 5 Transcribed By: KYM on 01/06/19745 COPY TO: MARICHUY MCCALLUM MD Urine WBC 2017-09-11 06:00:00 Test Item Urine WBC (test code = 5821-4) 6-10 0-5 H [facility] [id number] 06:00:00* Test Item Value Reference Range Interpretation Comments Urine RBC (test code = 86559-2) NONE 0-5 [facility] Rlrjkgnz0120-34-05 06:00:00* Test Item Value Reference Range Interpretation Comments Urine Bacteria (test code = 18411-4) FEW NONE [facility] Epithelial Fgpxm4692-41-43 06:00:00 * Test Item Value Reference Range Interpretation Comments Urine Epithelial Cells (test code = 37486-7) FEW NONE [facility] [id number] 05:57:00* Test Item Value Reference Range Interpretation Comments Urine Color (test code = 5778-6) STRAW YELLOW [facility] Dsxbcnc6774-75-50 05:57:00* Test Item Value Reference Range Interpretation Comments Urine Clarity (test code = 29657-7) CLEAR CLEAR [facility] Specific Fjydmna4509-81-43 05:57:00 * Test Item Value Reference Range Interpretation Comments Urine Specific Whitt (test code = 5811-5) 1.005 1.010-1.02 5 L [facility] [id number] 05:57:00* Test Item Value Reference Range Interpretation Comments Urine pH (test code = 31369-1) 7 5-7 [facility] Leukocyte Meiqcymh5010-16-41 05:57:00* Test Item Value Reference Range Interpretation Comments Urine Leukocyte Esterase (test code = 5799-2) 1+ NEGATIVE H [facility] Wqxyezv0442-97-55 05:57:00* Test Item Value Reference Range Interpretation Comments Urine Nitrite (test code = 43093-4) NEGATIVE NEGATIVE [facility] Kxabala0072-69-99 05:57:00* Test Item Value Reference Range Interpretation Comments Urine Protein (test code = 5804-0) NEGATIVE NEGATIVE [facility] Glucose (UA)2017-09-11 05:57:00* Test Item Value Reference Range Interpretation Comments Urine Glucose (UA) (test code = 2349-9) NEGATIVE NEGATIVE [facility] Ifhzqie4285-03-07 05:57:00* Test Item Value Reference Range Interpretation Comments Urine Ketones (test code = 54234-2) NEGATIVE NEGATIVE [facility] Ivzkidqbnqjn8364-87-55 05:57:00* Test Item Value Reference Range Interpretation Comments Urine Urobilinogen (test code = 84066-0) 0.2 0.2-1 [facility] Mdejavpuh1468-12-21 05:57:00* Test Item Value Reference Range Interpretation Comments Urine Bilirubin (test code = 1978-6) NEGATIVE NEGATIVE [facility] Lhdwn5128-83-27 05:57:00* Test Item Value Reference Range Interpretation Comments Urine Blood (test code = 28740-6) NEGATIVE NEGATIVE [facility] HospitalInfluenza Virus Types A,B Antigen 2017-09-11 05:14:00* Test Item Value Reference Range Interpretation Comments Influenza Virus Types A,B Antigen (test code = 14875-2) NEGATIVE NEGATIVE [facility] Hospital[facility] Kinase [id number] 05:07:00* Test Item Value Reference Range Interpretation Comments Creatine Kinase MB (test code = 51189-9) 0.70 0.00-5.00 [facility] HospitalTroponin [id number] 05:07:00* Test Item Value Reference Range Interpretation Comments Troponin I (test code = 88152-2) -0.001 0-0.300 [facility] Juvzp4280-08-22 05:01:00* Test Item Value Reference Range Interpretation Comments Sodium Level (test code = 2951-2) 138 136-145 [facility] HospitalPotassium Allwf6250-57-03 05:01:00* Test Item Value Reference Range Interpretation Comments Potassium Level (test code = 2823-3) 4.0 3.5-5.1 [facility] HospitalChloride Puvnj2384-21-27 05:01:00* Test Item Value Reference Range Interpretation Comments Chloride Level (test code = 2075-0) 100 98-107 [facility] HospitalCarbon Dioxide Uxykz3285-50-44 05:01:00* Test Item Value Reference Range Interpretation Comments Carbon Dioxide Level (test code = 2028-9) 26 22-29 [facility] HospitalAnion [id number] 05:01:00* Test Item Value Reference Range Interpretation Comments Anion Gap (test code = 39769-4) 16.0 8-16 [facility] Hospital[facility] Urea Tqkdleca0977-08-22 05:01:00* Test Item Value Reference Range Interpretation Comments Blood Urea Nitrogen (test code = 3094-0) 16 7-26 [facility] HospitalCreatinine2018-02-10 05:01:00* Test Item Value Reference Range Interpretation Comments Creatinine (test code = 2160-0) 1.11 0.57-1.11 [facility] HospitalBUN/Creatinine Hpunc7647-68-62 05:01:00* Test Item Value Reference Range Interpretation Comments BUN/Creatinine Ratio (test code = 3097-3) 14 6-25 [facility] HospitalEstimat Glomerular Filtration Rate 2017-09-11 05:01:00* Test Item Value Reference Range Interpretation Comments Estimat Glomerular Filtration Rate (test code = 35204-2) 49 >60 L Ranges were taken from the National Kidney Disease Education Program and the [facility] Foundation literature.Reference ranges:60 or greater: Lrsxzd14-89 ( for 3 consecutive months): Chronic kidney disease 15 or less: Kidney failureDriscoll Children's HospitalGlucose Msdrf8253-41-65 05:01:00* Test Item Value Reference Range Interpretation Comments Glucose Level (test code = GUH9641) 102 74-118 [facility] HospitalCalcium Bfpeb9366-25-43 05:01:00* Test Item Value Reference Range Interpretation Comments Calcium Level (test code = 75289-0) 9.7 8.4-10.2 [facility] HospitalTotal Nncforzgp4980-74-23 05:01:00* Test Item Value Reference Range Interpretation Comments Total Bilirubin (test code = 1975-2) 0.6 0.2-1.2 [facility] HospitalAspartate Amino Transf (AST/SGOT) 2017-09-11 05:01:00* Test Item Value Reference Range Interpretation Comments Aspartate Amino Transf (AST/SGOT) (test code = Aspartate Amino Transf (AST/SGOT)) 13 5-34 [facility] HospitalAlanine Aminotransferase (ALT/SGPT) 2017-09-11 05:01:00* Test Item Value Reference Range Interpretation Comments Alanine Aminotransferase (ALT/SGPT) (test code = 1742-6) 10 0-55 [facility] HospitalTotal Ruoyfqz8144-85-73 05:01:00* Test Item Value Reference Range Interpretation Comments Total Protein (test code = 2885-2) 7.8 6.5-8.1 [facility] HospitalAlbumin2018-02-10 05:01:00* Test Item Value Reference Range Interpretation Comments Albumin (test code = 1751-7) 3.9 3.5-5.0 [facility] HospitalGlobulin2018-02-10 05:01:00* Test Item Value Reference Range Interpretation Comments Globulin (test code = 60144-3) 3.9 2.3-3.5 H [facility] HospitalAlbumin/Globulin Yycxz7637-49-39 05:01:00 * Test Item Value Reference Range Interpretation Comments Albumin/Globulin Ratio (test code = 1759-0) 1.0 0.8-2.0 [facility] HospitalAlkaline Tlwnirwokgm7962-62-57 05:01:00* Test Item Value Reference Range Interpretation Comments Alkaline Phosphatase (test code = 6768-6) 124 40-150 [facility] HospitalCreatine Wtwfzc9586-18-94 05:01:00* Test Item Value Reference Range Interpretation Comments Creatine Kinase (test code = 2157-6) 40 29-168 [facility] HospitalAmylase Mbwbr2425-43-05 05:01:00* Test Item Value Reference Range Interpretation Comments Amylase Level (test code = 1798-8) 23 25-125 L [facility] HospitalLipase2018-02-10 05:01:00* Test Item Value Reference Range Interpretation Comments Lipase (test code = 3040-3) 12 8-78 [facility] HospitalWhite Blood Rrppt2366-42-74 04:39:00* Test Item Value Reference Range Interpretation Comments White Blood Count (test code = 6690-2) 14.89 4.8-10.8 H [facility] HospitalRed Blood Ofatr5549-04-12 04:39:00* Test Item Value Reference Range Interpretation Comments Red Blood Count (test code = 789-8) 4.77 3.6-5.1 [facility] HospitalHemoglobin2018-02-10 04:39:00* Test Item Value Reference Range Interpretation Comments Hemoglobin (test code = 05064-3) 13.0 12.0-16.0 [facility] HospitalHematocrit2018-02-10 04:39:00* Test Item Value Reference Range Interpretation Comments Hematocrit (test code = 4544-3) 41.4 34.2-44.1 [facility] HospitalMean Corpuscular Rlswfd4994-58-99 04:39:00* Test Item Value Reference Range Interpretation Comments Mean Corpuscular Volume (test code = 787-2) 86.8 81-99 [facility] HospitalMean Corpuscular Sxnaqwdrls1358-02-58 04:39:00* Test Item Value Reference Range Interpretation Comments Mean Corpuscular Hemoglobin (test code = 785-6) 27.3 28-32 [facility] Hemoglobin Concent 2017-09-11 04:39:00* Test Item Value Reference Range Interpretation Comments Mean Corpuscular Hemoglobin Concent (test code = 786-4) 31.4 31-35 [facility] HospitalRed Cell Distribution Whgse3475-71-32 04:39:00* Test Item Value Reference Range Interpretation Comments Red Cell Distribution Width (test code = 42643-9) 15.3 11.7 -14.4 H [facility] HospitalPlatelet Elikx2706-65-21 04:39:00* Test Item Value Reference Range Interpretation Comments Platelet Count (test code = 777-3) 472 140-360 H [facility] HospitalNeutrophils (%) (Auto)2017-09-11 04:39:00 * Test Item Value Reference Range Interpretation Comments Neutrophils (%) (Auto) (test code = 63778-9) 74.8 38.7-80.0 [facility] HospitalLymphocytes (%) (Auto)2017-09-11 04:39:00 * Test Item Value Reference Range Interpretation Comments Lymphocytes (%) (Auto) (test code = 736-9) 17.5 18.0-39.1 L [facility] HospitalMonocytes (%) (Auto)2017-09-11 04:39:00* Test Item Value Reference Range Interpretation Comments Monocytes (%) (Auto) (test code = 5905-5) 6.2 4.4-11.3 [facility] HospitalEosinophils (%) (Auto)2017-09-11 04:39:00 * Test Item Value Reference Range Interpretation Comments Eosinophils (%) (Auto) (test code = 713-8) 0.6 0.0-6.0 [facility] ([facility])2017-09-11 04:39:00* Test Item Value Reference Range Interpretation Comments Basophils (%) (Auto) (test code = 706-2) 0.4 0.0-1.0 [facility] %2017-09-11 04:39:00* Test Item Value Reference Range Interpretation Comments IM GRANULOCYTES % (test code = IM GRANULOCYTES %) 0.5 0.0- 1.0 [facility] # (Auto)2017-09-11 04:39:00* Test Item Value Reference Range Interpretation Comments Neutrophils # (Auto) (test code = 751-8) 11.2 2.1-6.9 H [facility]Lymphocytes # (Auto)2017-09-11 04:39:00* Test Item Value Reference Range Interpretation Comments Lymphocytes # (Auto) (test code = 89288-0) 2.6 1.0-3.2 [facility] # (Auto)2017-09-11 04:39:00* Test Item Value Reference Range Interpretation Comments Monocytes # (Auto) (test code = 742-7) 0.9 0.2-0.8 H [facility]osinophils # (Auto)2017-09-11 04:39:00* Test Item Value Reference Range Interpretation Comments Eosinophils # (Auto) (test code = 711-2) 0.1 0.0-0.4 [facility] (Auto)2017-09-11 04:39:00* Test Item Value Reference Range Interpretation Comments Basophils # (Auto) (test code = 704-7) 0.1 0.0-0.1 [facility]Absolute Immature Granulocyte (auto 2017-09-11 04:39:00* Test Item Value Reference Range Interpretation Comments Absolute Immature Granulocyte (auto (cullen t code = Absolute Immature Granulocyte (auto) 0.07 0-0.1 [facility] [address] [address] Patient Name: MARGARETTE COLÓN MR #: [id number] : 1950 Age/Sex: 67/F Req #: [id number] Adm Physician: Ordered by: SIVAKUMAR MUÑOZ MD Report #: [id number] Location: [facility]/Bed: Procedure: [id number] DX/CHEST SINGLE (PORTAB LE) Exam Date: 09/11/17 Exam Time: 0540 REPORT STATUS: Signed EXAMINATION: CHEST SINGLE (PORTABLE) INDICATION: Shortness of breath COMPARISON: 06/02/2017 FINDINGS: T UBES and LINES: None. LUNGS: Lungs are not well inflated. Lungs are ashley r. There is mild prominence of the central pulmonary vasculature, consistent with pulmonary venous congestion. PLEURA: No pleural effusion or pneumo thorax. HEART AND MEDIASTINUM: Cardiac size is mildly enlarged. There are atherosclerotic calcifications within the aorta. BONES AND SOFT TISSUES: No acute osseous lesion. Soft tissues are unremarkable. UPPER ABDOMEN: No free air under the diaphragm. IMPRESSION: No acute thoracic abnor mality. Mild enlargement of the heart without decompensation. Signed by: Dr. Inder Cardoza M.D. on 09/11/2017 6:14 AM Dictated By: INDER MCNAIR MD 0614 Hernandez scribed By: KYM on 09/11/17613 COPY TO: SIVAKUMAR MUÑOZ MD CT ABDOMEN/PELVIS W [place] [address] Patient Name: MARGARETTE COLÓN MR #: [id number] : 1950 Age/Sex: 67/F Req #: [id number] Adm Physician: Ordered by: SIVAKUMAR MUÑOZ MD Report #: [id number] Location: ER Room/Bed: Procedure: [id number] CT/CT ABDOMEN/PELVIS W Exam Date: 09/11/17 Exam Time: 0540 REPORT STA TUS: Signed EXAM: CT Abdomen and Pelvis WITH contrast INDICATION: Abdomin al pain COMPARISON: 11/13/2016 TECHNIQUE: Abdomen and pelvis were scanned uti lizing a multidetector helical scanner from the lung base to the pubic symphys is after administration of IV contrast. Coronal and sagittal reformations were obtained. Routine protocol was performed. Scan was performed when during port al venous phase. IV CONTRAST: 100 mL of Isovue-370 O RAL CONTRAST: None RADIATION DOSE: Total DLP: 475.92 mGy*cm Estimated effective dose: (DLP x 0.015 x size factor) mSv COMPLICATIONS: None FINDINGS: LINES and TUBES: None. LOWER THORA X: Unremarkable HEPATOBILIARY: No focal hepatic lesions. No biliary d uctal dilation. GALLBLADDER: There are cholecystectomy clips. SP SERGIO: No splenomegaly. PANCREAS: No focal masses or ductal dilatation. Di ffuse fatty replacement. ADRENALS: No adrenal nodules KIDNEYS/URET ERS: Kidneys enhance symmetrically. No hydronephrosis. No cystic or solid mas s lesions. No stones. GI TRACT: No abnormal distention, wall thickening, o r evidence of bowel obstruction. Loss of haustrations of the left hemicolon c an be seen on patient with chronic colitis. Appendix is not clearly identifie d. There is however no fat stranding or adenopathy in the right lower quadrant to suggest appendicitis. PELVIC ORGANS/BLADDER: There are postop changes of hysterectomy and bilateral oophorectomies. LYMPH NODES: No lymphadeno elvira. VESSELS: There is mild atherosclerotic disease in the aorta and madeleine r arterial branches. PERITONEUM / RETROPERITONEUM: No free air or fluid. BONES: There are mild degenerative changes in the lumbar spine. SOFT T ISSUES: Unremarkable. IMPRESSION: 1. No evidence of acute i ntra-abdominal or pelvic abnormality. 2. However, loss of infiltration of the left hemicolon can be seen on patients with chronic colitis. Signed by: Dr. Inder Cardoza M.D. on 09/11/2017 6:13 AM Dictated By: INDER MCNAIR MD 2 Hernandez scribed By: KYM on 09/11/17612 COPY TO: SIVAKUMAR MUÑOZ MD MRI SPINE LUMBAR [place] [address] Patient Name: MARGARETTE COLÓN MR #: [id number] : 1950 Age/Sex: 67/F Req #: [id number] Adm Physician: Ordered by: MARICHUY MCCALLUM MD Report #: [id number] Location: MRI Room/Bed: Procedure: [id number] MRI/MRI SPINE LUMBAR WO Shanice ohara Date: 08/04/17 Exam Time: 1210 REPORT STATUS: Signed Exam: Lumbar spine MRI without IV contrast History: Low back pain Comparison studies: None Technique: Sagittal and axial T2 , sagittal T1 and IR, axial-oblique proton density and coronal T2. Intravenous contrast: None Findings: Number of lumbar vertebral bodies: 5. Alignment: N ormal lordosis. Very mild thoracolumbar curvature convex to the left Soft tissues: No T2 hyperintense inflammatory changes. Paraspinal muscles: Mild atrophy, slightly greater on the right at L5. Lower thoracic cord: Normal in signal and morphology. The tip of the conus is at L1. Cauda equina: No masses. No arachnoiditis. Vertebrae: No compression fractures, infecti on or neoplasm. Degenerative changes: T11-T12: Mildly degenerated d isc. Small disc bulge does not result in canal stenosis. Patent foramina. T12-L1: Patent canal and foramina. No disc herniation L1-L2: Patent ca nal and foramina. No disc herniation. L2-L3: Mildly degenerated disc wit h mild loss of disc height and T2 disc signal. Symmetric disc bulge does not r esult in significant canal stenosis. Pain foramina. L3-L4: Mildly degen erated disc. Small asymmetric right disc bulge with 10 mm TV x 3 mm AP right c entral disc protrusion and mild facet arthrosis results in minimal canal steno sis and mild narrowing of the right subarticular zone without nerve root impin gement. L4-L5: Mildly degenerated disc. Asymmetric left disc bulge and mi ld facet arthrosis result in very mild canal stenosis and mild narrowing of th e subarticular zones. No significant foraminal stenosis. Small facet effusion on the right results in only mild widening of the right facet joint. L5-S 1: Patent canal and foramina. No disc herniation. IMPRESSION: Mi ld degenerative changes with mild multilevel disc degeneration and small disc protrusion at L3-L4 without significant canal stenosis, foraminal stenosis or nerve root impingement. Signed by: Dr. Greg Reyes M.D. on 08/05/2017 8:35 AM Dictated By: GREG REYES MD 4 Transcribed By: KYM on 08/05/17834 COPY T O: MARICHUY MCCALLUM MD CHEST 2 VIEWS [place] [address] Patient Name: MARGARETTE COLÓN MR #: [id number] : 1950 Age/Sex: 66/F Req #: [id number] Adm Physician: Ordered by: MARICHUY MCCALLUM MD Report #: [id number] Location: [facility] Room/Bed: Procedure: [id number] DX/CHEST 2 VIEWS Exam Date: 06/02/17 Exam Time: 1715 REPORT STATUS: Signed PROCEDURE: Frontal and lateral views of the chest. COMPARISON: Chest radiograph 10/01/2010 INDICATIONS: BRONCHITIS, COUGH FINDINGS: Lines/tubes: None. Lungs: The lungs are well inflated and clear. Mild bibasilar atelectasis. There is no evidence of pneumonia or pulmonary edema. Pleura: There is no pleural effusion or pneumothorax. Heart and med iastinum: The heart and the mediastinum are normal. Bones: No acute bony abnormality. IMPRESSION: No acute cardiopulmonary disease. D ictated by: Cristiano Cedeño M.D. on 06/02/2017 at 17:44 Electronically ap proved by: Cristiano Cedeño M.D. on 06/02/2017 at 17:44 Dictate d By: CRISTIANO CEDEÑO MD 1 744 Transcribed By: GERARDO on 06/02/17 0455 COPY TO: MARICHUY MCCALLUM MD
--- OUTSIDE RECORDS SUMMARY | 2020-03-15 22:29 | XMS REPORT | Clinical Summary ---
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 Active dicyclomine (BENTYL) 20 Take 20 mg by 3 12/14/ mg tablet mouth 3 8 (three) times a day as needed. Active losartan-hydrochlorothiaz TAKE 1 TABLET 0 /2 topher (HYZAAR) 50-12.5 mg BY MOUTH 8 per tablet EVERY DAY 90 Active metoprolol tartrate Take 25 mg by 0 (LOPRESSOR) 25 mg tablet mouth 2 (two) [...] Problem Noted Date Iron deficiency anemia 02/08/2018 Family History Medical History Relation Name Comments Liver cancer Mother Relation Name Status Comments Mother Social History Date Tobacco Use Types Packs/Day Years Used Former Smoker Smokeless Tobacco: Never Used Drinks/Week oz/Week Comments Alcohol Use No Sex Assigned at Date Recorded Not on file Industry Job Start Date Occupation Not on file Not on file Not on file Travel End Travel History Travel Start No recent travel history available. Last Filed Vital Signs Not on file Plan of Treatment Health Maintenance Due Date Last Done Comments BREAST CANCER SCREENING 1999 COLONOSCOPY SCREENING 1999 SHINGLES VACCINES (#1) 1999 65+ PNEUMOCOCCAL VACCINE 2014 (1 of 2 - PCV13) INFLUENZA VACCINE 04/02/2020 Results Not on fileafter 03/15/2019 Insurance Type Payer Benefit Subscriber ID Effective Phone Address Plan / Dates Group Medicare MEDICARE MEDICARE xxxxxxxxxx 2014- DENIZ, PART A AND Present [place] [employer] xxxxxxxxxx 2014- MUTUAL Present Advance Directives For more information, please contact: [phone] 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
--- NOTE | 2020-03-15 22:55 | NUR ---
blood cultures and lactic acid drawn at this time
[2020-03-15] MEDS ORDERED: PIPERACILLIN/TAZO 4.5 GM 100 ML IV STA (22:58)
--- NOTE | 2020-03-15 23:10 | Diagnostic Imaging Report ---
EXAMINATION: CHEST SINGLE (PORTABLE) INDICATION: ^CT shows airspace opacity COMPARISON: Chest x-ray dated 09/11/2017 FINDINGS: AP view TUBES and LINES: None. LUNGS: Lungs are well inflated. Prominent interstitial lung markings. Right upper lobe and medial right lower lung field airspace opacities. PLEURA: No pleural effusion or pneumothorax. HEART AND MEDIASTINUM: The cardiomediastinal silhouette is unremarkable. BONES AND SOFT TISSUES: No acute osseous lesion. Soft tissues are unremarkable. UPPER ABDOMEN: No free air under the diaphragm. IMPRESSION: Prominent insertional lung markings, could be chronic or represent mild interstitial edema. Right upper lobe and medial right lower lung field airspace opacities, concerning for multifocal pneumonia. Signed by: Dr. Song Grove MD on 03/15/2020 11:06 PM
[2020-03-15] MEDS ORDERED: SODIUM CHLORIDE 0.9% 1000ML 1,000 ML IV ONE (23:15)
--- OUTSIDE RECORDS SUMMARY | 2020-03-15 23:51 | XMS REPORT | Clinical Summary ---
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
--- OUTSIDE RECORDS SUMMARY | 2020-03-15 23:52 | XMS REPORT | Continuity of Care Document ---
Author Author [facility] t Organization [facility] Address [address] [place] [address] Phone Unavailable Care Team Providers Care Cottage Master Name Role Phone XENA VICTOR, Arthur BENEDICT PCP Annabel Gallo Attphys Unavailable Arthur MCCALLUM Attphys Unavailable Elva MUÑOZ Attphys Unavailable Payers Payer Name Policy Type Policy Number Effective Date Expiration Date S ource Medicare A & B [id number] 2014 00:00:00 [facility] Physicians [place] [employer] [id number] 2014 00:00:00 [facility] Problems Condition Name Condition Details Condition Category Status Onset Date Resolution Date Last Treatment Date Treating Clinician Comments Source Iron deficiency anemia Iron deficiency anemia Disease Active 2018-02-08 00:00:00 [facility] Sprain of left knee Sprain of left knee Problem Active [facility] Allergies, Adverse Reactions, Alerts This patient has no known allergies or adverse reactions. Family History Family Member Diagnosis Comments Start Date Stop Date Source Natural mother Liver cancer Nesbit Caodaism Social History Social Habit Start Date Stop Date Quantity Comments Source Sex Assigned At Arabella ray Caodaism Alcohol intake 2018-05-04 00:00:00 2018-05-04 00:00:00 Current [...] mg by mouth nightly as needed. Alejandro Friedman ethodist sucralfate (CARAFATE) 1 gram tablet 2018-01-20 00:00:00 Yes TAKE 1 TABLET BY MOUTH 3 TIMES A DAY BEFORE MEALS & AT BEDTIME Alejandro Rossi losartan-hydrochlorothiazide (HYZAAR) 50-12.5 mg per tablet 2017-12-24 00:00:00 Yes TAKE 1 TABLET BY MOUTH EVERY DAY 90 Alejandro Rossi dicyclomine (BENTYL) 20 mg tablet 2017-12-14 00:00:00 Ye s 20mg [id number] Take 20 mg by mouth 3 (three) [...] Mg Tab.chew Yes 81 Twice A Day [facility] Aspirin (Aspirin Ec) 81 Mg Tablet. Aspirin (Aspirin Ec) 81 Mg Tab let. Yes 81 Daily [facility] Bevespi Aeroshpere Bevespi Aeroshpere Yes [facility] Bifidobacterium Infantis (Align) 4 Mg Capsule Bifidoba cterium Infantis (Align) 4 Mg Capsule Yes 1 Daily [facility] Clonidine Hcl 0.1 Mg Tablet Clonidine Hcl 0.1 Mg Tablet Yes 1 Twice A Day [facility] Dicyclomine Hcl 20 Mg Tablet Dicyclomine Hcl 20 Mg Tablet Y es 20 Three Times A Day as needed for Na [facility] Losartan/Hydrochlorothiazide (Losartan-Hctz 50-12.5 Mg Tab) 1 Each Tablet Losartan/Hydrochlorothiazide (Losartan-Hctz 50-12.5 Mg Tab) 1 Each Tablet Yes 1 Daily [facility] Metoprolol Tartrate 25 Mg Tablet Metoprolol Tartrate 25 Mg Tablet Yes 25 Twice A Day [facility] Omeprazole 40 Mg Capsule. Omeprazole 40 Mg Capsule. Yes 20 Daily [facility] Ondansetron Hcl (Ondansetron Odt) 4 Mg/Udtablet Tabdp Ondansetron Hcl (Ondansetron Odt) 4 Mg/Udtablet Tabdp Yes 4 Twice A Day for Nausea And Vomiting [facility] Sertraline Hcl 50 Mg Tablet Sertraline Hcl 50 Mg Tablet Yes 50 Daily [facility] Zolpidem Tartrate 10 Mg Tablet Zolpidem Tartrate 10 Mg Tablet Yes 10 Bedtime [facility] Hyoscyamine Sulfate (Levsin) 0.125 Mg Tablet, 1 Tab Or al Hyoscyamine Sulfate (Levsin) 0.125 Mg Tablet, 1 Tab Oral 2017-02-10 00:00:00 No 1 Every 4 Hours for Abdominal Pain [facility] Promethazine Hcl 25 Mg Tablet, 25 Mg Oral Promethazine Hcl 25 Mg Tablet, 25 Mg Oral 2017-02-10 00:00:00 No 25 As Needed [facility] Hydrocodone Bit/Acetaminophen (Hydrocodo n-Acetaminophen 5-300) 1 Each Tablet, 1 Tab Oral Hydrocodone Bit/Acetaminophen (Hydrocodo n-Acetaminophen 5-300) 1 Each Tablet, 1 Tab Oral 2017-02-08 00:00:00 No 1 As Ne eded [facility] Levocetirizine Dihydrochloride 5 Mg Tablet, 1 Tab Oral Levocetirizine Dihydrochloride 5 Mg Tablet, 1 Tab Oral 2017-02-08 00:00:00 No 1 Daily [facility] Dicyclomine Hcl (Bentyl) 10 Mg Capsule, 20 Mg Oral Dic yclomine Hcl (Bentyl) 10 Mg Capsule, 20 Mg Oral 2016-11-13 00:00:00 No 20 T hree Times A Day [facility] Meloxicam 7.5 Mg Tablet, 7.5 Mg Oral Meloxicam 7.5 Mg Tablet, 7. 5 Mg Oral 2016-11-13 00:00:00 No 7.5 Daily [facility] Diclofenac Epolamine (Flector) 1 Each Adh..patch, 50 M g Oral Diclofenac Epolamine (Flector) 1 Each Adh..patch, 50 Mg Oral 2016-08-12 00:00:00 No 50 Twice A Day [facility] Dicyclomine Hcl 10 Mg Capsule, 10 Mg Oral Dicyclomine Hcl 10 Mg Capsule, 10 Mg Oral 2016-08-12 00:00:00 No 10 Daily [facility] Fluoxetine Hcl 20 Mg Capsule, 20 Mg Oral Fluoxetine Hc l 20 Mg Capsule, 20 Mg Oral 2016-08-12 00:00:00 No 20 Daily [facility] Losartan/Hydrochlorothiazide (Losartan-H ctz 100-12.5 Mg Tab) 1 Each Tablet, 1 Tab Oral Losartan/Hydrochlorothiazide (Losartan-H ctz 100-12.5 Mg Tab) 1 Each Tablet, 1 Tab Oral 2016-08-12 00:00:00 No 1 Bedti me [facility] Ondansetron (Zofran Odt) 4 Mg Tab.rapdis, 8 Mg Subling ual Ondansetron (Zofran Odt) 4 Mg Tab.rapdis, 8 Mg Sublingual 2016-08-12 00:00:00 No 8 Twice A Day [facility] Procedures Procedure Date / Time Performed Performing Clinician Sourc e Computed tomography of abdomen and pelvis with contrast 2017 00:00:00 SIVAKUMAR MUÑOZ [facility] Magnetic resonance imaging of lumbar spine without contrast 2017-08-04 00:00:00 MARICHUY MCCALLUM [facility] X-ray of chest, two views 2017-06-02 00:00:00 MARICHUY MCCALLUM CH I [facility] EGD BIOPSY SINGLE/MULTIPLE 2017-02-10 00:00:00 JOI BUCHANAN [facility] DILATE ESOPHAGUS 1/MULT PASS 2017-02-10 00:00:00 JOI BUCHANAN [facility] Plan of Care Planned Activity Planned Date Details Comments Source Future Scheduled Test 2020-04-02 00:00:00 INFLUENZA VACCINE [code = INFLUENZA VACCINE] [facility] Scheduled Test 2014 00:00:00 65+ PNEUMOCOCCAL V ACCINE (1 of 2 - PCV13) [code = 65+ PNEUMOCOCCAL VACCINE (1 of 2 - PCV13)] [facility] Future Scheduled Test 1999 00:00:00 BREAST CANCER SCRE ENING [code = BREAST CANCER SCREENING] [facility] Scheduled Test 1999 00:00:00 COLONOSCOPY SCREEN ING [code = COLONOSCOPY SCREENING] [facility] Scheduled Test 1999 00:00:00 SHINGLES VACCINES (#1) [code = SHINGLES VACCINES (#1)] [facility] Encounters Start Date/Time End Date/Time Encounter Type Admission Type Attendi [facility] Facility Care Department Encounter ID Source 2017-09-11 04:21:00 2017-09-11 06:44:00 Departed Emergency Room ER SIVAKUMAR MUÑOZ [facility] [id number] [facility] 2017-08-04 10:00:00 2017-08-04 10:00:00 Registered Clinic MARICHUY CORRIGAN [facility] [id number] [facility] 2017-06-02 16:51:00 2017-06-02 16:51:00 Registered Clinic MARICHUY CORRIGAN [facility] [id number] [facility] 2017-03-04 10:32:00 2017-03-04 10:32:00 Registered Clinic [facility] [id number] [facility] 2017-02-10 09:24:00 2017-02-10 09:24:00 Registered Surgical Day Care [facility] [id number] [facility] Results Test Description Test Time Test Comments Results Result Comments Source CHEST SINGLE (PORTABLE) 2020-03-15 23:03:00 [facility] [address] [address] Patient Name: MARGARETTE COLÓN MR #: [id number] : 1950 Age/Sex: 69/F Req #: [id number] Adm Physician: Ordered by: Lance Gallo MD Report #: [id number] Location: ER Room/Bed: Procedure: [id number] DX/CHEST SINGLE (PORTABLE) Exam Date: Exam Time: REPORT STATUS: Signed EXAMINATION: CHEST SINGLE (PORTABLE) INDICATION: CT shows airspace opacity COMPARISON: Chest x-ray dated 09/11/2017 FINDINGS: AP view TUBES and LINES: None. LUNGS: Lungs are well inflated. Prominent interstitial lung markings. Right upper lobe and medial right lower lung field airspace opacities. PLEURA: No pleural effusion or pneumothorax. HEART AND MEDIASTINUM: The cardiomediastinal silhouette is unremarkable. BONES AND SOFT TISSUES: No acute osseous lesion. Soft tissues are unremarkable. UPPER ABDOMEN: No free air under the diaphragm. IMPRESSION: Prominent insertional lung markings, could be chronic or represent mild interstitial edema. Right upper lobe and medial right lower lung field airspace opacities, concerning for multifocal pneumonia. Signed by: Dr. Song Souza MD on 03/15/2020 11:06 PM Dictated By: SONG SOUZA MD 05 Transcribed By: KYM on 03/15/202305 COPY TO: LANCE GALLO MD CT ABDOMEN/PELVIS W 2020-03-15 22:11:[address] [address] Patient Name: MARGARETTE COLÓN MR #: [id number] : 1950 Age/Sex: 69/F Req #: [id number] Adm Physician: Ordered by: Lance Gallo MD Report #: [id number] Location: ER Room/Bed: Procedure: [id number] CT/CT ABDOMEN/PELVIS W Exam Date: 03/15/20 Exam [...] CT ABDOMEN/PELVIS W 2020-02-23 10:32:00 [address] [address] Patient Name: MARGARETTE COLÓN MR #: [id number] : 1950 Age/Sex: 69/F Req #: [id number] Adm Physician: Ordered by: MARICHUY MCCALLUM MD Report #: [id number] Location: CT Room/Bed: Procedure: [id number] CT/CT ABDOMEN/PELVIS W Exam Date: 02/23/20 Exam [...] ABDOMEN 2 VIEW 2019-01-06 07:45:00 [address] [address] Patient Name: MARGARETTE COLÓN MR #: [id number] : 1950 Age/Sex: 68/F Req #: [id number] Adm Physician: Ordered by: MARICHUY MCCALLUM MD Report #: [id number] Location: [facility] Room/Bed: Procedure: [id number] DX/ABDOMEN 2 VIEW Exam Date: 01/05/19 Exam [...] (test code = 5821-4) 6-10 0-5 H [facility] [id number] 06:00:00* Test Item Value Reference Range Interpretation Comments Urine RBC (test code = 35169-5) NONE 0-5 [facility] Nzyfvfsf0215-86-27 06:00:00* Test Item Value Reference Range Interpretation Comments Urine Bacteria (test code = 56134-1) FEW NONE [facility] Epithelial Trzhk1935-55-31 06:00:00 * Test Item Value Reference Range Interpretation Comments Urine Epithelial Cells (test code = 16399-8) FEW NONE [facility] Yxini2108-73-72 05:57:00* Test Item Value Reference Range Interpretation Comments Urine Color (test code = 5778-6) STRAW YELLOW [facility] Xaewqwg8348-91-82 05:57:00* Test Item Value Reference Range Interpretation Comments Urine Clarity (test code = 07893-9) CLEAR CLEAR [facility] Specific Fyoukhy1148-26-65 05:57:00 * Test Item Value Reference Range Interpretation Comments Urine Specific [place] (test code = 5811-5) 1.005 1.010-1.02 5 L [facility] [id number] 05:57:00* Test Item Value Reference Range Interpretation Comments Urine pH (test code = 15732-8) 7 5-7 [facility] Leukocyte Msoozsva4792-39-17 05:57:00* Test Item Value Reference Range Interpretation Comments Urine Leukocyte Esterase (test code = 5799-2) 1+ NEGATIVE H [facility] Gideqfk6831-14-30 05:57:00* Test Item Value Reference Range Interpretation Comments Urine Nitrite (test code = 87841-6) NEGATIVE NEGATIVE [facility] Ztlogul5915-49-51 05:57:00* Test Item Value Reference Range Interpretation Comments Urine Protein (test code = 5804-0) NEGATIVE NEGATIVE [facility] Glucose (UA)2017-09-11 05:57:00* Test Item Value Reference Range Interpretation Comments Urine Glucose (UA) (test code = 2349-9) NEGATIVE NEGATIVE [facility] Srvgtxj5472-50-91 05:57:00* Test Item Value Reference Range Interpretation Comments Urine Ketones (test code = 26573-5) NEGATIVE NEGATIVE [facility] Vimlimckzqkt7599-43-15 05:57:00* Test Item Value Reference Range Interpretation Comments Urine Urobilinogen (test code = 99531-7) 0.2 0.2-1 [facility] Ntlcdhgae0949-80-08 05:57:00* Test Item Value Reference Range Interpretation Comments Urine Bilirubin (test code = 1978-6) NEGATIVE NEGATIVE [facility] Cjjhr7840-05-95 05:57:00* Test Item Value Reference Range Interpretation Comments Urine Blood (test code = 40375-8) NEGATIVE NEGATIVE [facility] Virus Types A,B Antigen 2017-09-11 05:14:00* Test Item Value Reference Range Interpretation Comments Influenza Virus Types A,B Antigen (test code = 06384-2) NEGATIVE NEGATIVE [facility]ine Kinase UJ7412-80-91 05:07:00* Test Item Value Reference Range Interpretation Comments Creatine Kinase MB (test code = 67295-6) 0.70 0.00-5.00 [facility] HospitalTroponin W0710-59-25 05:07:00* Test Item Value Reference Range Interpretation Comments Troponin I (test code = 18750-9) -0.001 0-0.300 [facility] Rvcqn6371-36-97 05:01:00* Test Item Value Reference Range Interpretation Comments Sodium Level (test code = 2951-2) 138 136-145 [facility]Potassium Kexbg8809-48-57 05:01:00* Test Item Value Reference Range Interpretation Comments Potassium Level (test code = 2823-3) 4.0 3.5-5.1 [facility] HospitalChloride Txihq3621-47-22 05:01:00* Test Item Value Reference Range Interpretation Comments Chloride Level (test code = 2075-0) 100 98-107 [facility] HospitalCarbon Dioxide Fzoqa7595-82-34 05:01:00* Test Item Value Reference Range Interpretation Comments Carbon Dioxide Level (test code = 2028-9) 26 22-29 [facility] HospitalAnion Jfy5590-52-64 05:01:00* Test Item Value Reference Range Interpretation Comments Anion Gap (test code = 13517-1) 16.0 8-16 [facility] HospitalBlood Urea Ojloycec8837-88-92 05:01:00* Test Item Value Reference Range Interpretation Comments Blood Urea Nitrogen (test code = 3094-0) 16 7-26 [facility] HospitalCreatinine2018-02-10 05:01:00* Test Item Value Reference Range Interpretation Comments Creatinine (test code = 2160-0) 1.11 0.57-1.11 [facility] HospitalBUN/Creatinine Nmzvt1747-83-15 05:01:00* Test Item Value Reference Range Interpretation Comments BUN/Creatinine Ratio (test code = 3097-3) 14 6-25 [facility] HospitalEstimat Glomerular Filtration Rate 2017-09-11 05:01:00* Test Item Value Reference Range Interpretation Comments Estimat Glomerular Filtration Rate (test code = 46698-5) 49 >60 L Ranges were taken from the National Kidney Disease Education Program and the [facility] Kidney Foundation literature.Reference ranges:60 or greater: Fnaxdq62-64 ( for 3 consecutive months): Chronic kidney disease 15 or less: Kidney failureMayhill HospitalGlucose Cbojh4196-44-45 05:01:00* Test Item Value Reference Range Interpretation Comments Glucose Level (test code = SSZ4222) 102 74-118 [facility] HospitalCalcium Zkdlh1172-50-38 05:01:00* Test Item Value Reference Range Interpretation Comments Calcium Level (test code = 74931-4) 9.7 8.4-10.2 [facility] HospitalTotal Qlymyzgsw2568-13-64 05:01:00* Test Item Value Reference Range Interpretation Comments Total Bilirubin (test code = 1975-2) 0.6 0.2-1.2 [facility] HospitalAspartate Amino Transf (AST/SGOT) 2017-09-11 05:01:00* Test Item Value Reference Range Interpretation Comments Aspartate Amino Transf (AST/SGOT) (test code = Aspartate Amino Transf (AST/SGOT)) 13 5-34 [facility] HospitalAlanine Aminotransferase (ALT/SGPT) 2017-09-11 05:01:00* Test Item Value Reference Range Interpretation Comments Alanine Aminotransferase (ALT/SGPT) (test code = 1742-6) 10 0-55 [facility] HospitalTotal Iwnyfkg4076-33-99 05:01:00* Test Item Value Reference Range Interpretation Comments Total Protein (test code = 2885-2) 7.8 6.5-8.1 [facility] HospitalAlbumin2018-02-10 05:01:00* Test Item Value Reference Range Interpretation Comments Albumin (test code = 1751-7) 3.9 3.5-5.0 [facility] HospitalGlobulin2018-02-10 05:01:00* Test Item Value Reference Range Interpretation Comments Globulin (test code = 95065-7) 3.9 2.3-3.5 H [facility] HospitalAlbumin/Globulin Oumew7453-51-84 05:01:00 * Test Item Value Reference Range Interpretation Comments Albumin/Globulin Ratio (test code = 1759-0) 1.0 0.8-2.0 [facility] HospitalAlkaline Mlmcylgpmvi8758-74-82 05:01:00* Test Item Value Reference Range Interpretation Comments Alkaline Phosphatase (test code = 6768-6) 124 40-150 [facility] HospitalCreatine Pbagax3124-68-01 05:01:00* Test Item Value Reference Range Interpretation Comments Creatine Kinase (test code = 2157-6) 40 29-168 [facility] HospitalAmylase Sdzws5891-85-61 05:01:00* Test Item Value Reference Range Interpretation Comments Amylase Level (test code = 1798-8) 23 25-125 L [facility] HospitalLipase2018-02-10 05:01:00* Test Item Value Reference Range Interpretation Comments Lipase (test code = 3040-3) 12 8-78 [facility] HospitalWhite Blood Cuvio9918-37-19 04:39:00* Test Item Value Reference Range Interpretation Comments White Blood Count (test code = 6690-2) 14.89 4.8-10.8 H [facility] HospitalRed Blood Gyytx1655-29-04 04:39:00* Test Item Value Reference Range Interpretation Comments Red Blood Count (test code = 789-8) 4.77 3.6-5.1 [facility] HospitalHemoglobin2018-02-10 04:39:00* Test Item Value Reference Range Interpretation Comments Hemoglobin (test code = 59016-0) 13.0 12.0-16.0 [facility] HospitalHematocrit2018-02-10 04:39:00* Test Item Value Reference Range Interpretation Comments Hematocrit (test code = 4544-3) 41.4 34.2-44.1 [facility] HospitalMean Corpuscular Khrage4848-58-76 04:39:00* Test Item Value Reference Range Interpretation Comments Mean Corpuscular Volume (test code = 787-2) 86.8 81-99 [facility] HospitalMean Corpuscular Ntkmrzhlga3435-14-87 04:39:00* Test Item Value Reference Range Interpretation Comments Mean Corpuscular Hemoglobin (test code = 785-6) 27.3 28-32 L [facility] HospitalMean Corpuscular Hemoglobin Concent 2017-09-11 04:39:00* Test Item Value Reference Range Interpretation Comments Mean Corpuscular Hemoglobin Concent (test code = 786-4) 31.4 31-35 [facility] HospitalRed Cell Distribution Arpgq8989-48-75 04:39:00* Test Item Value Reference Range Interpretation Comments Red Cell Distribution Width (test code = 12439-1) 15.3 11.7 -14.4 H [facility] HospitalPlatelet Qcomp6597-52-93 04:39:00* Test Item Value Reference Range Interpretation Comments Platelet Count (test code = 777-3) 472 140-360 H [facility] HospitalNeutrophils (%) (Auto)2017-09-11 04:39:00 * Test Item Value Reference Range Interpretation Comments Neutrophils (%) (Auto) (test code = 89729-4) 74.8 38.7-80.0 [facility] HospitalLymphocytes (%) (Auto)2017-09-11 04:39:00 * Test Item Value Reference Range Interpretation Comments Lymphocytes (%) (Auto) (test code = 736-9) 17.5 18.0-39.1 L [facility] HospitalMonocytes (%) (Auto)2017-09-11 04:39:00* Test Item Value Reference Range Interpretation Comments Monocytes (%) (Auto) (test code = 5905-5) 6.2 4.4-11.3 [facility] HospitalEosinophils (%) (Auto)2017-09-11 04:39:00 * Test Item Value Reference Range Interpretation Comments Eosinophils (%) (Auto) (test code = 713-8) 0.6 0.0-6.0 [facility] HospitalBasophils (%) (Auto)2017-09-11 04:39:00* Test Item Value Reference Range Interpretation Comments Basophils (%) (Auto) (test code = 706-2) 0.4 0.0-1.0 [facility] HospitalIM GRANULOCYTES %2017-09-11 04:39:00* Test Item Value Reference Range Interpretation Comments IM GRANULOCYTES % (test code = IM GRANULOCYTES %) 0.5 0.0- 1.0 [facility] HospitalNeutrophils # (Auto)2017-09-11 04:39:00* Test Item Value Reference Range Interpretation Comments Neutrophils # (Auto) (test code = 751-8) 11.2 2.1-6.9 H [facility] HospitalLymphocytes # (Auto)2017-09-11 04:39:00* Test Item Value Reference Range Interpretation Comments Lymphocytes # (Auto) (test code = 16940-0) 2.6 1.0-3.2 [facility] HospitalMonocytes # (Auto)2017-09-11 04:39:00* Test Item Value Reference Range Interpretation Comments Monocytes # (Auto) (test code = 742-7) 0.9 0.2-0.8 H [facility] HospitalEosinophils # (Auto)2017-09-11 04:39:00* Test Item Value Reference Range Interpretation Comments Eosinophils # (Auto) (test code = 711-2) 0.1 0.0-0.4 [facility] HospitalBasophils # (Auto)2017-09-11 04:39:00* Test Item Value Reference Range Interpretation Comments Basophils # (Auto) (test code = 704-7) 0.1 0.0-0.1 [facility] HospitalAbsolute Immature Granulocyte (auto 2017-09-11 04:39:00* Test Item Value Reference Range Interpretation Comments Absolute Immature Granulocyte (auto (cullen t code = Absolute Immature Granulocyte (auto) 0.07 0-0.1 [facility] [address] [address] Patient Name: MARGARETTE COLÓN MR #: [id number] : 1950 Age/Sex: 67/F Req #: [id number] Adm Physician: Ordered by: SIVAKUMAR MUÑOZ MD Report #: [id number] Location: ER R oom/Bed: Procedure: [id number] DX/CHEST SINGLE (PORTAB LE) Exam Date: 09/11/17 [...] 6:14 AM Dictated By: INDER MCNAIR MD 3 Hernandez scribed By: KYM on 09/11/17613 COPY TO: SIVAKUMAR MUÑOZ MD CT ABDOMEN/PELVIS W [facility] [address] [address] Patient Name: MARGARETET COLÓN MR #: [id number] : 1950 Age/Sex: 67/F Req #: [id number] Adm Physician: Ordered by: SIVAKUAMR MUÑOZ MD Report #: [id number] Location: ER Room/Bed: Procedure: [id number] CT/CT ABDOMEN/PELVIS W Exam Date: 09/11/17 Exam [...] MD MRI SPINE LUMBAR WO [address] [place] [address] Patient Name: MARGARETTE COLÓN MR #: [id number] : 1950 Age/Sex: 67/F Req #: [id number] Adm Physician: Ordered by: MARICHUY MCCALLUM MD Report #: [id number] Location: MRI Room/Bed: Procedure: [id number] MRI/MRI SPINE LUMBAR WO [place] m Date: 08/04/17 Exam Time: 1210 REPORT STATUS: [...] MCCALLUM MD CHEST 2 VIEWS [place] [address] Patient Name: MARGARETTE COLÓN MR #: [id number] : 1950 Age/Sex: 66/F Req #: [id number] Adm Physician: Ordered by: MARICHUY MCCALLUM MD Report #: [id number] Location: [facility] Room/Bed: Procedure: [id number] DX/CHEST 2 VIEWS Exam Date: 06/02/17 Exam [...] 1 744 Transcribed By: GERARDO on 06/02/17 9274 COPY TO: MARICHUY MCCALLUM MD
[2020-03-16] VITALS (7 sets, daily range): BP systolic 95–135; BP diastolic 60–97
[2020-03-16] MEDS ORDERED: SODIUM CHLORIDE 0.9% 1000ML 1,000 ML IV SCH (00:45)
[2020-03-16] MEDS ORDERED: PROMETHAZINE 12.5MG/ NACL 0.9% 12.5 MG/50 ML BAG IV ONE ×2 (01:00→04:45)
[2020-03-16] MEDS ORDERED: PROMETHAZINE 12.5MG/ NACL 0.9% 50 ML ONE (01:00)
[2020-03-16] MEDS ORDERED: FUROSEMIDE INJ 10 MG/ML 4 ML VIAL IV ONE (01:30)
--- NOTE | 2020-03-16 02:31 | Diagnostic Imaging Report ---
EXAMINATION: CHEST SINGLE (PORTABLE) INDICATION: ^Y ^sob COMPARISON: 03/15/2020 FINDINGS: AP view TUBES and LINES: None. LUNGS: Lungs are well inflated. Persistent right upper lobe airspace opacities. Increased left basilar and medial right lower lung field airspace opacities. Mild interstitial edema. PLEURA: No pleural effusion or pneumothorax. HEART AND MEDIASTINUM: The cardiomediastinal silhouette is unremarkable. BONES AND SOFT TISSUES: No acute osseous lesion. Soft tissues are unremarkable. UPPER ABDOMEN: No free air under the diaphragm. IMPRESSION: Bilateral airspace opacities, increased when compared to prior x-ray, concerning for worsening multifocal pneumonia. Suspected mild interstitial edema. Signed by: Dr. Song Grove MD on 03/16/2020 2:27 AM
[2020-03-16] MEDS ORDERED: VANCOMYCIN 1GM/NS 250 ML 250 ML ONE (03:13)
[2020-03-16] MEDS: VANCOMYCIN 500MG/NS 0.9% 100ML 100 ML IV SCH ×2 (03:30→15:25)
[2020-03-16] MEDS: SODIUM CHLORIDE 0.9% 1000ML 1,000 ML IV SCH ×2 (04:16→18:21)
--- NOTE | 2020-03-16 04:16 | NUR ---
patient is a new admit that arrived via wheelchair. patient has telemetry attached. patient has been helped into the bed. bed is in the lowest position and call light is within reach.
[2020-03-16] MEDS: CEFEPIME 1GM/NS 0.9% 50 ML 50 ML IV SCH ×2 (06:07→18:21)
--- NOTE | 2020-03-16 06:26 | NUR ---
tried to contact consulted physician. unable to get a hold of physician.
[2020-03-16 06:51] LABS: BASOPHILS # (AUTO) 0.1 (0.0-0.1); BASOPHILS % 0.4 % (0.0-1.0); HEMATOCRIT 45.2 % (34.2-44.1); HEMOGLOBIN 14.2 g/dL (12.0-16.0); LYMPHOCYTES # (AUTO) 1.6 (1.0-3.2); LYMPHOCYTES % 6.3 % (18.0-39.1); MEAN CORPUSCULAR HEMOGLOBIN 28.6 pg (28-32); MEAN CORPUSCULAR HGB CONC 31.4 g/dL (31-35); MEAN CORPUSCULAR VOLUME 90.9 fL (81-99); MONOCYTES # (AUTO) 1.9 (0.2-0.8); MONOCYTES % 7.4 % (4.4-11.3); NEUTROPHILS # (AUTO) 21.8 (2.1-6.9); PLATELET COUNT 529 x10e3/uL (140-360); RED BLOOD COUNT 4.97 x10e6/uL (3.6-5.1); RED CELL DISTRIBUTION WIDTH 13.4 % (11.7-14.4)
--- NOTE | 2020-03-16 07:01 | NUR ---
patient is resting comfortably in the bed. bed is in lowest position
[2020-03-16 07:11] LABS: ANION GAP 19.9 mmol/L (8-16); BLOOD UREA NITROGEN 10 mg/dL (7-26); BUN/CREATININE RATIO 12 (6-25); CALCIUM 8.7 mg/dL (8.4-10.2); CARBON DIOXIDE 17 mmol/L (22-29); CHLORIDE 107 mmol/L (98-107); CREATININE, SERUM 0.82 mg/dL (0.57-1.11); EST GLOMERULAR FILTRATION RATE > 60 ML/MIN (60-); GLUCOSE 132 mg/dL (74-118); SODIUM 141 mmol/L (136-145)
[2020-03-16 07:14] LABS: POTASSIUM 2.9 mmol/L (3.5-5.1)
[2020-03-16] MEDS ORDERED: POTASSIUM CHLORIDE 20 MEQ TAB CR PO STA (07:22)
[2020-03-16] MEDS: PROMETHAZINE 12.5MG/ NACL 0.9% 12.5 MG/50 ML BAG IV PRN ×2 (08:48→15:25)
[2020-03-16] MEDS: ASPIRIN 81 MG CHEW TAB PO SCH ×2 (08:51→18:21)
[2020-03-16] MEDS: CLONIDINE HCL 0.1 MG TAB PO SCH ×2 (08:52→18:21)
[2020-03-16] MEDS: PANTOPRAZOLE SOD 40 MG TABEC PO SCH ×2 (08:52→18:21)
[2020-03-16] MEDS: CLONAZEPAM 0.5 MG TAB PO SCH ×2 (08:52→18:21)
[2020-03-16] MEDS: METOPROLOL TARTRATE 25 MG TAB PO SCH ×2 (08:54→18:21)
--- NOTE | 2020-03-16 10:03 | NUR ---
Lab potassium and Lactic acid level notified to Dr Gonzalez, new orders recvd
[2020-03-16] MEDS ORDERED: POTASSIUM CHLORIDE 20 MEQ TAB CR PO ONE (11:25)
--- NOTE | 2020-03-16 15:51 | Consultation ---
DATE OF CONSULTATION: REASON FOR CONSULTATION: Pneumonia. HISTORY OF PRESENT ILLNESS: This patient who is a very pleasant 69-year-old comes in with one-day history of shortness of breath and cough productive, nausea, vomiting, not feeling well, felt really weak. The patient came to the emergency room where she is admitted. Blood cultures obtained. When she first came white count was 31.1. Her COVID is pending. Sodium 141, potassium 2.9. Lactic acid was 4.9. Chest x-ray was ordered. PAST MEDICAL HISTORY: She denies. PAST SURGICAL HISTORY: She denies. ALLERGIES: NKA. SOCIAL HISTORY: There is no smoking, drug abuse, alcohol abuse. FAMILY HISTORY: Unremarkable. PHYSICAL EXAMINATION: GENERAL: She is currently alert, oriented. VITAL SIGNS: Stable, currently afebrile. HEENT: She is not icteric. NECK: Supple. CHEST: Clear. HEART: S1, S2. ABDOMEN: Soft. Bowel sounds present. EXTREMITIES: No edema. SKIN: No rash. IMPRESSION: I think the patient has pneumonia, sepsis on admission. Continue as ordered vancomycin and cefepime. Await blood cultures, urine cultures, sputum cultures. Further recommendations to follow. MD TERRENCE Quintana/GM /[id number]
--- NOTE | 2020-03-16 18:22 | NUR ---
Patient up in bed, Not in any distress now, Tolerated 40 of dinner, call light in reach, keep monitoring
[2020-03-16] MEDS ORDERED: METOCLOPRAMIDE HCL 10 MG TAB PO SCH (21:00)
[2020-03-16] MEDS ORDERED: QUETIAPINE FUMARATE 25 MG TAB PO SCH (21:00)
[2020-03-17] VITALS (15 sets, daily range): BP systolic 47–124; BP diastolic 38–100
[2020-03-17] MEDS ORDERED: METOCLOPRAMIDE HCL 10 MG/2ML VIAL IV STA (02:31)
[2020-03-17] MEDS: VANCOMYCIN 500MG/NS 0.9% 100ML 100 ML IV SCH ×2 (02:49→17:35)
[2020-03-17] MEDS: PANTOPRAZOLE 40 MG 10ML VIAL IV SCH ×3 (03:20→20:53)
[2020-03-17] MEDS: CEFEPIME 1GM/NS 0.9% 50 ML 50 ML IV SCH ×2 (05:02→17:35)
[2020-03-17] MEDS: SODIUM CHLORIDE 0.9% 1000ML 1,000 ML IV SCH ×2 (05:06→16:17)
[2020-03-17] MEDS: METOCLOPRAMIDE HCL 10 MG/2ML VIAL IV SCH ×3 (05:26→17:35)
[2020-03-17 06:36] LABS: BASOPHILS # (AUTO) 0.1 (0.0-0.1); BASOPHILS % 0.5 % (0.0-1.0); EOSINOPHILS # (AUTO) 0.1 (0.0-0.4); EOSINOPHILS % 0.3 % (0.0-6.0); HEMATOCRIT 38.9 % (34.2-44.1); HEMOGLOBIN 11.8 g/dL (12.0-16.0); LYMPHOCYTES # (AUTO) 2.6 (1.0-3.2); LYMPHOCYTES % 12.2 % (18.0-39.1); MEAN CORPUSCULAR HEMOGLOBIN 29.8 pg (28-32); MEAN CORPUSCULAR HGB CONC 30.3 g/dL (31-35); MEAN CORPUSCULAR VOLUME 98.2 fL (81-99); MONOCYTES # (AUTO) 1.9 (0.2-0.8); MONOCYTES % 8.8 % (4.4-11.3); NEUTROPHILS # (AUTO) 16.2 (2.1-6.9); NEUTROPHILS % 77.5 % (38.7-80.0); PLATELET COUNT 304 x10e3/uL (140-360); RED BLOOD COUNT 3.96 x10e6/uL (3.6-5.1); RED CELL DISTRIBUTION WIDTH 13.9 % (11.7-14.4)
[2020-03-17] MEDS: ACETAMINOPHEN 325 MG TAB PO PRN (06:48)
[2020-03-17 07:11] LABS: ALANINE AMINOTRANSFERASE 6 IU/L (0-55); ALBUMIN 2.8 g/dL (3.5-5.0); ALKALINE PHOSPHATASE 61 IU/L (40-150); ANION GAP 14.7 mmol/L (8-16); BLOOD UREA NITROGEN 13 mg/dL (7-26); BUN/CREATININE RATIO 17 (6-25); CALCIUM 8.5 mg/dL (8.4-10.2); CARBON DIOXIDE 20 mmol/L (22-29); CHLORIDE 111 mmol/L (98-107); CREATININE, SERUM 0.75 mg/dL (0.57-1.11); EST GLOMERULAR FILTRATION RATE > 60 ML/MIN (60-); GLUCOSE 90 mg/dL (74-118); MAGNESIUM 1.3 MG/DL (1.3-2.1); POTASSIUM 3.7 mmol/L (3.5-5.1); SODIUM 142 mmol/L (136-145)
--- NOTE | 2020-03-17 07:25 | NUR ---
PATIENT IN BED RESTING WITH HEAD OF BED ELEVATED, NO DISTRESS NOTED. O2 IN PLACE VIA N/C. BED IN LOWER POSITION, CALL LIGHT AT REACH.
[2020-03-17] MEDS: CLONIDINE HCL 0.1 MG TAB PO SCH ×2 (09:00→16:17)
[2020-03-17] MEDS: ASPIRIN 81 MG CHEW TAB PO SCH ×2 (09:04→17:35)
[2020-03-17] MEDS: CLONAZEPAM 0.5 MG TAB PO SCH ×2 (09:04→16:18)
[2020-03-17] MEDS: METOPROLOL TARTRATE 25 MG TAB PO SCH ×2 (09:05→17:00)
--- NOTE | 2020-03-17 11:17 | NUR ---
PATIENT IN BED RESTING WITH NO S/S OF DISCOMFORT. CALL LIGHT AT REACH.
[2020-03-17] MEDS ORDERED: ALBUTEROL/IPRATROPIUM 3 ML NEB NEB PRN (14:00)
--- NOTE | 2020-03-17 14:00 | NUR ---
PT ON NC 3L SHORT OF BREATH,O2 SATS 87%.ABG STAT,DR DESHPANDE ORDER PLACED PT ON BIPAP THEN TRANSFER PT TO ICU
--- NOTE | 2020-03-17 14:10 | NUR ---
PATIENT C/O DIFFICULTY BREATHING. UPON ASSESSMENT AUDIBLE WHEEZING NOTED, O2 SAT AT 88-91% AT 2L. O2 INCREASED TO 4L AND O2 SAT AT 94%. MD NOTIFIED, NEW ORDER RECEIVED FOR NEB TREATMENT. PATIENT IN BED WITH HEAD OF BED ELEVATED, STAFF MEMBER AND RT AT BED SIDE, NEB TREATMENT IN PROGRESS.
--- NOTE | 2020-03-17 14:20 | NUR ---
NEB TREATMENT IN PROGRESS, PATIENT CONTINUE TO C/O OF DIFFICULTY BREATHING. HR AT 132-139 AND O2 SAT FLUCTUATING. MD NOTIFIED. NEW ORDER RECEIVED.
--- NOTE | 2020-03-17 14:25 | NUR ---
PATIENT O2 SAT DECREASING DESPITE TREATMENT, DR DESHPANDE CONSULTED AND IS IN THE ROOM TO SEE PATIENT. NEW ORDERS RECEIVED TO TRANSFER PATIENT TO ICU. CHARGE NURSE IN THE ROOM, HS NOTIFIED.
--- NOTE | 2020-03-17 14:30 | NUR ---
PATIENT TRANSFERRED TO ICU ROOM 189. REPORT GIVEN TO RECEIVING NURSE. ALL PERSONAL ITEMS TAKEN WITH PATIENT.
--- NOTE | 2020-03-17 14:45 | NUR ---
RECEIVED PT FROM FLOOR IN RESP DISTRESS ON BIPAP, PT GOING IN AND OUT SINUS TACH AND AFIB IN 170S AND HYPOTENSIVE MD NOTIFIED PT INTUBATED RECEIVED NS BOLUS AND GIVEN AMIODARONE BOLUS.
[2020-03-17 14:54] LABS: ABG PCO2 53 mmHg (35-45); ABG PH 7.18 (7.35-7.45); ABG PO2 66 mmHg (80-105)
[2020-03-17 14:55] LABS: ABG HCO3 20 mmol/L (22-26); ABG TCO2 40
[2020-03-17] MEDS ORDERED: AMIODARONE HCL 100 ML IV ONE (14:57)
--- NOTE | 2020-03-17 15:15 | Diagnostic Imaging Report ---
EXAMINATION: CHEST SINGLE (PORTABLE) INDICATION: Shortness of breath COMPARISON: Multiple priors including most recent on 03/16/2020. FINDINGS: AP view TUBES and LINES: None. LUNGS: Lungs are well inflated. Interval worsening of previously seen airspace opacities with complete opacification of both lungs on current study. PLEURA: No pleural effusion or pneumothorax. HEART AND MEDIASTINUM: The cardiomediastinal silhouette is unchanged. BONES AND SOFT TISSUES: No acute osseous lesion. Soft tissues are unchanged. UPPER ABDOMEN: No free air under the diaphragm. IMPRESSION: Interval worsening of bilateral airspace opacities, concerning for worsening multifocal pneumonia. Signed by: Skye Lovell MD on 03/17/2020 3:11 PM
[2020-03-17] MEDS ORDERED: BENZOCAINE 20% SPR 60 ML CAN MT ONE (15:30)
--- NOTE | 2020-03-17 15:34 | NUR ---
PATIENT'S SON NILDA GRANADOS CALLED AND NOTIFIED OF TRANSFER.
[2020-03-17] MEDS ORDERED: MIDAZOLAM HCL 5MG/ML 10ML VIAL 100 ML IV ONE (15:47)
[2020-03-17 16:25] LABS: ABG HCO3 20 mmol/L (22-26); ABG PCO2 32 mmHg (35-45); ABG PO2 392 mmHg (80-105); ABG TCO2 21
--- NOTE | 2020-03-17 17:05 | Diagnostic Imaging Report ---
EXAMINATION: CHEST SINGLE (PORTABLE) INDICATION: Evaluation of endotracheal tube and central venous catheter placement. COMPARISON: Multiple priors including most recent on same day. FINDINGS: AP view TUBES and LINES: There has been interval placement of endotracheal tube which terminates approximately 3.8 cm above the lawrence and right internal jugular central venous catheter which terminates at the cavoatrial junction. LUNGS: Redemonstration of diffuse bilateral airspace opacities with slight interval improvement in aeration of the lung bases. PLEURA: No pleural effusion or pneumothorax. HEART AND MEDIASTINUM: The cardiomediastinal silhouette is unchanged. BONES AND SOFT TISSUES: No acute osseous lesion. Soft tissues are unchanged. UPPER ABDOMEN: No free air under the diaphragm. IMPRESSION: 1. Interval placement of endotracheal tube and right internal jugular CVC as detailed above. 2. Redemonstration of diffuse patchy airspace opacities with slight interval improved aeration of the bilateral lung bases. Signed by: Skye Lovell MD on 03/17/2020 5:02 PM
--- NOTE | 2020-03-17 17:08 | Diagnostic Imaging Report ---
EXAM: Abdomen Radiograph 1 View(s) INDICATION: Evaluation of NG tube placement. COMPARISON: None FINDINGS: Interval placement of NG tube with sidehole the terminates in the GE junction. Nonobstructive bowel gas pattern partially imaged abdomen. Status post cholecystectomy with clips in the right upper quadrant. The bones are normal. Soft tissues are normal. Please see concurrently obtained chest radiograph for complete discussion of the lungs. IMPRESSION: Interval placement of NG tube with sidehole that terminates in the distal gastroesophageal junction. Recommend advancement. Signed by: Skye Lovell MD on 03/17/2020 5:05 PM
--- NOTE | 2020-03-17 17:19 | Operative Report ---
DATE OF PROCEDURE: SURGEON: Christofer Andres MD PROCEDURE: Central line placement under ultrasound guidance. PREOPERATIVE DIAGNOSIS: Atrial fibrillation and hemodynamic instability. POSTOPERATIVE DIAGNOSIS: Atrial fibrillation and hemodynamic instability. CONSENT: Consent was deemed emergent due to respiratory failure and hemodynamic instability. MEDICATIONS: 1% lidocaine for local anesthesia. PROCEDURE IN DETAIL: The patient was placed in a supine position. The right lateral neck was prepped sterilely with chlorhexidine. A full length sterile drape, sterile gown, sterile gloves, sterile mask were used. The area between the heads of the sternocleidomastoid was anesthetized with 1% lidocaine. An ultrasound machine was used to locate the right internal jugular vein. The right internal jugular vein was cannulated under direct visualization with a 16-gauge needle. A wire was passed through the needle. Dilator was used to open the skin. A triple-lumen catheter was placed over the wire by the Seldinger technique. All the ports flushed. COMPLICATIONS: None. ESTIMATED BLOOD LOSS: None. Christofer Andres MD [facility]/MODL /[id number]
[2020-03-17] MEDS: AZITHROMYCIN 500MG/NS 250 ML 250 ML IV SCH (17:35)
[2020-03-17] MEDS ORDERED: AMIODARONE HCL 150 MG in DEXTROSE 5% 100ML 100 ML IV SCH (18:00)
[2020-03-17] MEDS ORDERED: AMIODARONE HCL 360MG 200 ML IV SCH (18:00)
[2020-03-17] MEDS ORDERED: AMIODARONE HCL 150MG 100 ML IV SCH (18:00)
[2020-03-17] MEDS: MIDAZOLAM HCL 5MG/ML 10ML VIAL 100 ML IV PRN (18:35)
[2020-03-17] MEDS ORDERED: METHYLPREDNISOLONE SOD SUCC 40 MG/ML VIAL 1ML IV ONE (19:00)
[2020-03-17] MEDS ORDERED: AMIODARONE 900MG 500 ML IV ONE (20:48)
[2020-03-17] MEDS: AMIODARONE HCL 900 MG in DEXTROSE 5 % 500ML BOTTLE 500 ML IV SCH (21:10)
--- NOTE | 2020-03-17 21:55 | Operative Report ---
DATE OF PROCEDURE: SURGEON: Christofer Andres MD PROCEDURE: Endotracheal intubation with GlideScope. PREOPERATIVE DIAGNOSIS: Respiratory failure. POSTOPERATIVE DIAGNOSIS: Respiratory failure. CONSENT: Consent was obtained from the patient. MEDICATIONS: Etomidate 20 mg, Cetacaine spray. DESCRIPTION OF PROCEDURE: The patient was placed in the supine position. She was preoxygenated with an Ambu bag. Cetacaine spray was used to anesthetize the posterior pharynx. She was then given etomidate 20 mg. A GlideScope was used to visualize the glottis. A 7.5 endotracheal tube was passed through the glottis on the first attempt. There were equal breath sounds bilaterally. There was good CO2 return. The patient's oxygen saturation remained above 90 throughout the procedure. She remained hemodynamically stable. COMPLICATIONS: None. ESTIMATED BLOOD LOSS: None. Christofer Andres MD [facility]/MODL /[id number]
[2020-03-18] VITALS (25 sets, daily range): BP systolic 81–126; BP diastolic 49–94
[2020-03-18] MEDS: METOCLOPRAMIDE HCL 10 MG/2ML VIAL IV SCH ×4 (00:01→17:31)
[2020-03-18] MEDS: SODIUM CHLORIDE 0.9% 1000ML 1,000 ML IV SCH ×2 (00:01→10:05)
[2020-03-18] MEDS: MIDAZOLAM HCL 5MG/ML 10ML VIAL 100 ML IV PRN ×2 (00:02→10:05)
[2020-03-18] MEDS: VANCOMYCIN 500MG/NS 0.9% 100ML 100 ML IV SCH ×2 (03:18→16:59)
[2020-03-18] MEDS: CEFEPIME 1GM/NS 0.9% 50 ML 50 ML IV SCH ×2 (04:20→17:31)
--- NOTE | 2020-03-18 05:00 | NUR ---
16 FR STALEY INSERTED. NO RESISTANCE FELT, PATIENT TOLERATED INSERTION, NO TRAUMA. BALLOON FILLED WITH 10CC NS.
[2020-03-18 05:19] LABS: BASOPHILS % 0.2 % (0.0-1.0); HEMATOCRIT 34.6 % (34.2-44.1); HEMOGLOBIN 10.7 g/dL (12.0-16.0); LYMPHOCYTES # (AUTO) 0.8 (1.0-3.2); LYMPHOCYTES % 4.7 % (18.0-39.1); MEAN CORPUSCULAR HEMOGLOBIN 28.9 pg (28-32); MEAN CORPUSCULAR HGB CONC 30.9 g/dL (31-35); MONOCYTES # (AUTO) 0.9 (0.2-0.8); MONOCYTES % 4.7 % (4.4-11.3); NEUTROPHILS # (AUTO) 16.2 (2.1-6.9); NEUTROPHILS % 89.8 % (38.7-80.0); PLATELET COUNT 322 x10e3/uL (140-360); RED CELL DISTRIBUTION WIDTH 13.6 % (11.7-14.4)
[2020-03-18 05:20] LABS: MEAN CORPUSCULAR VOLUME 93.5 fL (81-99)
[2020-03-18 05:54] LABS: ALANINE AMINOTRANSFERASE 7 IU/L (0-55); ALBUMIN 2.2 g/dL (3.5-5.0); ALBUMIN/GLOBULIN RATIO 0.8 (0.8-2.0); ALKALINE PHOSPHATASE 54 IU/L (40-150); BLOOD UREA NITROGEN 16 mg/dL (7-26); BUN/CREATININE RATIO 23 (6-25); CALCIUM 7.7 mg/dL (8.4-10.2); CARBON DIOXIDE 18 mmol/L (22-29); CHLORIDE 111 mmol/L (98-107); CREATININE, SERUM 0.71 mg/dL (0.57-1.11); EST GLOMERULAR FILTRATION RATE > 60 ML/MIN (60-); GLUCOSE 141 mg/dL (74-118); SODIUM 139 mmol/L (136-145)
[2020-03-18] MEDS ORDERED: POTASSIUM CHLORIDE 20MEQ/100ML 100 ML IV ONE ×2 (06:45→10:45)
[2020-03-18 07:05] LABS: ABG HCO3 18 mmol/L (22-26); ABG PCO2 24 mmHg (35-45); ABG PH 7.47 (7.35-7.45); ABG PO2 74 mmHg (80-105); ABG TCO2 19
--- NOTE | 2020-03-18 07:27 | Diagnostic Imaging Report ---
EXAMINATION: CHEST SINGLE (PORTABLE) INDICATION: ^INTUBATION, PNEUMONIA ^[id number] ^[id number] COMPARISON: 03/17/2020 FINDINGS: AP view TUBES and LINES: Stable endotracheal tube and right IJ central line. The questionable enteric tube is advanced, as the side port is no longer visualized. LUNGS: Lungs are well inflated. Bilateral airspace opacities, increased when compared to prior exam. PLEURA: No significant pleural effusion or pneumothorax. HEART AND MEDIASTINUM: The cardiomediastinal silhouette is unremarkable. BONES AND SOFT TISSUES: No acute osseous lesion. Soft tissues are unremarkable. UPPER ABDOMEN: No free air under the diaphragm. IMPRESSION: Interval increase in bilateral airspace opacities when compared to prior x-ray. Signed by: Dr. Song Grove MD on 03/18/2020 7:24 AM
--- NOTE | 2020-03-18 07:42 | Progress Note ---
DATE: SUBJECTIVE: The patient is a 69-year-old, admitted to ICU 189. The patient is admitted to the hospital for pneumonia. The patient is currently getting antibiotics including vancomycin, azithromycin, and cefepime. Overnight, no new complaints. Did not have tube feeding started. No pump available. The patient has an order for Glucerna at this time. No other changes from nursing staff. PHYSICAL EXAMINATION: VITAL SIGNS: Temperature is 99.1, pulse of 82, respirations of 22, blood pressure is 120/87. The patient is on FiO2 of 42%. HEENT: Normocephalic, intubated. CVS: S1 and S2 normal, converted. She is on amiodarone. Regular rate and rhythm. ABDOMEN: Soft, nontender, nondistended. EXTREMITIES: No clubbing. No cyanosis. No edema. LUNGS: Positive for coarse crackles in the lower bases. LABORATORY VALUES: From today white count is 17,000 down from 20,000 yesterday, hemoglobin of 10.7, hematocrit of 34.6, neutrophil count of 89.8. Vancomycin trough elevated at 36.3. Chemistries; sodium of 139, potassium 3.0, BUN of 16, creatinine 0.71, glucose of 141, lactic acid last 2.1, no trends noted. ALT and AST normal. Blood gases from yesterday pH of 7.40, bicarb of 20. Serology; coronavirus nondetected. Urine noted. IMAGING STUDIES: From yesterday, interval placement of endotracheal tube. ASSESSMENT: Ms. Karsten Bush with: 1. Pneumonia and sepsis on admission. Plan; continue vancomycin, cefepime, and also continue azithromycin. 2. Acute respiratory failure. Continue mechanical ventilation, Dr. Christofer Andres. 3. Transient atrial fibrillation, converted, is on amiodarone. 4. Deep venous thrombosis prophylaxis. Continue same. 5. Nutrition. Need to start on Glucerna. 6. History of chronic diarrhea and history of hypertension and diabetes. Continue monitoring and treat as needed. 7. Hypokalemia, treated as needed. PLAN: Today, chest x-ray. Discontinue amiodarone drip if okay with Dr. Andres. Continue with antibiotics. Further recommendation per clinical course. We will continue to monitor the patient. MD NAVA HassanJ/MODL /[id number]
--- NOTE | 2020-03-18 07:47 | NUR ---
infectious disease progress note Patient seen and examined chart reviewed This is a late entry for March 17, 2020 Case was discussed with medical team please refer to the orders Patient remains intensive care unit The patient is a 69-year-old, admitted to ICU 189. The patient is admitted to the hospital for pneumonia. The patient is currently getting antibiotics including vancomycin, azithromycin, and cefepime. Overnight, no new complaints. Did not have tube feeding started. No pump available. The patient has an order for Glucerna at this time. No other changes from nursing staff. PHYSICAL EXAMINATION: VITAL SIGNS: Temperature is 99.1, pulse of 82, respirations of 22, blood pressure is 120/87. The patient is on FiO2 of 42%. HEENT: Normocephalic, intubated. CVS: S1 and S2 normal, converted. She is on amiodarone. Regular rate and rhythm. ABDOMEN: Soft, nontender, nondistended. EXTREMITIES: No clubbing. No cyanosis. No edema. LUNGS: Positive for coarse crackles in the lower bases. LABORATORY VALUES: IMAGING STUDIES: From yesterday, interval placement of endotracheal tube. ASSESSMENT: 1. Pneumonia and sepsis on admission. Plan; continue vancomycin, cefepime, and also continue azithromycin. 2. Acute respiratory failure. Continue mechanical ventilation, Meds ordered discussed with medical team 3. Transient atrial fibrillation, converted, is on amiodarone. 4. Deep venous thrombosis prophylaxis. Continue same. 5. Nutrition. Need to start on Glucerna. 6. History of chronic diarrhea and history of hypertension and diabetes. Continue monitoring and treat as needed. 7. Hypokalemia, treated as needed.
--- NOTE | 2020-03-18 07:48 | NUR ---
infectious disease progress note Patient seen and examined chart reviewed please refer to the orders discussed with the medical team. This is March 18, 2020. Patient remains intensive care unit From today white count is 17,000 down from 20,000 yesterday, hemoglobin of 10.7, hematocrit of 34.6, neutrophil count of 89.8. Vancomycin trough elevated at 36.3. Chemistries; sodium of 139, potassium 3.0, BUN of 16, creatinine 0.71, glucose of 141, lactic acid last 2.1, no trends noted. ALT and AST normal. Blood gases from yesterday pH of 7.40, bicarb of 20. Serology; coronavirus nondetected. Urine noted. VITAL SIGNS: Temperature is 99.1, pulse of 82, respirations of 22, blood pressure is 120/87. The patient is on FiO2 of 42%. HEENT: Normocephalic, intubated. CVS: S1 and S2 normal, converted. She is on amiodarone. Regular rate and rhythm. ABDOMEN: Soft, nontender, nondistended. EXTREMITIES: No clubbing. No cyanosis. No edema. LUNGS: Positive for coarse crackles in the lower bases. Respiratory failure Pneumonia Congestive heart failure Continue with antibiotics as ordered and await sputum cultures Reassess see orders
[2020-03-18] MEDS: ASPIRIN 81 MG CHEW TAB PO SCH ×2 (08:20→17:09)
[2020-03-18] MEDS: PANTOPRAZOLE 40 MG 10ML VIAL IV SCH ×2 (08:20→20:18)
[2020-03-18] MEDS: CLONIDINE HCL 0.1 MG TAB PO SCH ×2 (08:21→17:30)
[2020-03-18] MEDS: METOPROLOL TARTRATE 25 MG TAB PO SCH ×2 (08:21→17:31)
--- NOTE | 2020-03-18 08:32 | Consultation ---
DATE OF CONSULTATION: 03/17/2020 Pulmonary Critical Care Consultation. CHIEF COMPLAINT: Dyspnea, cough and congestion for 2 days. HISTORY OF PRESENT ILLNESS: The patient is a 69-year-old woman. She has a history of prior pneumonia. She also has a history of gastrointestinal problems and acid reflux. She denies any prior heart disease. She came to the hospital complaining of 2-3 days of worsening dyspnea. She had some fever. She also noted some cough. She did not complain of any chest pain. She denied any nausea or vomiting. The patient originally went to the med/surg floor. She was on high-flow oxygen and was receiving antibiotics. She noticed more respiratory problems this afternoon. She was started on BiPAP. An ABG was performed with a pH of 7.18 and a CO2 of 53, the O2 was 66. She was transferred to the intensive care unit and received some intravenous fluids while on BiPAP. She developed rapid tachycardia with atrial fibrillation. She subsequently required endotracheal intubation. PAST MEDICAL HISTORY: 1. Gastroesophageal reflux. 2. Hypertension. 3. No prior cardiac history. 4. History of prior pneumonia. PAST SURGICAL HISTORY: Not obtainable. ALLERGIES: NO KNOWN DRUG ALLERGIES. SOCIAL HISTORY: The patient is not an active smoker. She is not an active drinker. FAMILY HISTORY: Family history is noncontributory. REVIEW OF SYSTEMS: The patient had some fevers at home. She has no headache. She is not having any neck pain. She did not complain of chest pain. She had difficulty breathing and cough. She denied any nausea or vomiting. She had no abdominal pain. She had no leg edema. PHYSICAL EXAMINATION: VITAL SIGNS: The blood pressure is 119/85, saturation is 95%, the heart rate is 150-160 with atrial fibrillation or crackles at the bases. LUNGS: There is no wheezing. ABDOMEN: Soft and nontender. There is no rebound or guarding. EXTREMITIES: There is no leg edema or calf tenderness. There is no cyanosis clubbing. SKIN: Shows no rashes. NEUROLOGICAL: Shows no focal abnormalities. The patient is now sedated. LABORATORY DATA: White blood cell count is 20.96, it was 31 on admission, platelet count is 304. The BUN to creatinine ratio is 13 to 0.75. Albumin is 2.8 and the other electrolytes are within normal limits. RADIOGRAPHIC DATA: Chest x-ray shows bilateral infiltrates. IMPRESSION: 1. Aspiration pneumonia with leukocytosis and severe sepsis, present on admission. 2. Acute respiratory failure. 3. Metabolic acidosis. 4. Hypokalemia. 5. Hypoalbuminemia. PLAN: 1. The patient will receive IV antibiotics including cefepime, vancomycin and azithromycin. We will taper the antibiotics depending on the culture results. 2. Continue current ventilator settings and repeat ABG. 3. Begin enteral feedings. 4. Repeat COVID test. 5. Continue to monitor blood counts. 6. The patient has received 30 mL/kg of IV fluids in accordance with the sepsis protocol. The patient has also had blood cultures as well. Christofer Andres MD [facility]/MODL /[id number]
[2020-03-18] MEDS: AMIODARONE HCL 900 MG in DEXTROSE 5 % 500ML BOTTLE 500 ML IV SCH (09:42)
[2020-03-18] MEDS ORDERED: POTASSIUM CHLORIDE 20MEQ/100ML 100 ML IV PRN (10:45)
--- NOTE | 2020-03-18 11:03 | Progress Note ---
DATE: SUBJECTIVE: The patient is currently on an assist control mode of ventilation. She was sedated with Versed at 4 mg. She is on amiodarone for atrial fibrillation. PHYSICAL EXAMINATION: VITAL SIGNS: Blood pressure is 115/87 and heart rate is now 86. There is a normal sinus rhythm. HEENT: Shows no facial swelling or erythema. The oropharynx is normal. LYMPHATIC: Shows no submandibular, cervical, or supraclavicular adenopathy. CARDIAC: Reveals regular rate and rhythm. Normal S1 and S2. LUNGS: Auscultation of lungs reveals rhonchorous breath sounds bilaterally. There is no wheezing. ABDOMEN: Soft and nontender. There is no rebound or guarding. EXTREMITIES: Show no leg edema or calf tenderness. There is no cyanosis or clubbing. SKIN: Shows no rashes. LABORATORY DATA: Potassium is 3 and the BUN to creatinine ratio is 16 to 0.71. The carbon dioxide is 18 and the chloride is 111. The albumin is 2.2. White blood cell count is 18, hemoglobin is 10.7, and platelet count is 322. Blood gases; 7.47, 24, 74, and 18. RADIOGRAPHIC DATA: Chest x-ray shows bilateral airspace opacities. IMPRESSION: 1. Aspiration pneumonia with severe sepsis, present on admission. 2. Acute respiratory failure. 3. Atrial fibrillation. 4. Metabolic acidosis. 5. Hypokalemia. PLAN: 1. Hold sedation to assess mental status. 2. Attempt spontaneous breathing trial. 3. Continue amiodarone. 4. Continue enteral feedings. 5. Continue current antibiotics. 6. Replace potassium. 7. Prognosis remains guarded. Greater than 35 minutes in direct critical care time. Christofer Andres MD [facility]/MODL /[id number]
--- NOTE | 2020-03-18 14:33 | NUR ---
Upon reviewing Vanco trough labs, it is unclear if the level is appropriate to give the next dose. MD Sampson called and stated that it is appropriate to administer vancomycin dose at this time.
[2020-03-18] MEDS: AZITHROMYCIN 500MG/NS 250 ML 250 ML IV SCH (17:09)
[2020-03-18] MEDS ORDERED: FUROSEMIDE INJ 10 MG/ML 2 ML VIAL IV STA (17:19)
[2020-03-18] MEDS: AMIODARONE HCL 200 MG TAB PO SCH (17:30)
[2020-03-18] MEDS ORDERED: ALBUMIN 25% 25GM 100ML 0.25 GM/ML BTL IV SCH (18:00)
[2020-03-18] MEDS ORDERED: FUROSEMIDE INJ 10 MG/ML 4 ML VIAL IV ONE (18:00)
[2020-03-18] MEDS ORDERED: POTASSIUM CHLORIDE 20MEQ/100ML 200 ML IV ONE (18:00)
--- NOTE | 2020-03-18 18:49 | Consultation ---
DATE OF CONSULTATION: Cardiology Consultation REASON FOR CONSULTATION: Atrial fibrillation. HISTORY OF PRESENT ILLNESS: This is a 69-year-old woman, who has a history of esophageal reflux and hypertension, who presented to the emergency department with progressively worsening shortness of breath. She is currently intubated and sedated, and cannot obtain review of systems. On the floor, she developed hypoxemic respiratory failure and was found to have atrial fibrillation right ventricular response. She is currently in normal sinus rhythm after amiodarone infusion was initiated. REVIEW OF SYSTEMS: Unable to be obtained. PAST MEDICAL HISTORY: As stated above. PAST SURGICAL HISTORY: None recent. ALLERGIES: NO KNOWN DRUG ALLERGIES. MEDICATIONS: See medications reconciliation form. FAMILY HISTORY: Noncontributory to current illness. PHYSICAL EXAMINATION: VITAL SIGNS: Temperature is 98.5, heart rate is 93, respirations are 20, blood pressure is 116/87, and ox saturation is 95% on 45% FiO2. GENERAL: Elderly woman, currently intubated and sedated. Oropharynx has an ET tube present. NECK: Jugular venous distention. CARDIOVASCULAR: Regular rate and rhythm. LUNGS: Diminished breath sounds at the bases. ABDOMEN: Soft, nontender, nondistended. EXTREMITIES: No clubbing, cyanosis or edema. NEUROLOGIC: The patient is sedated. LABORATORY VALUES: Reviewed. White blood cell count is 17.8, potassium is 3. Chest x-ray shows bilateral pulmonary opacities. IMPRESSION: 1. Respiratory failure with hypoxia. 2. Paroxysmal atrial fibrillation. 3. Hypokalemia. 4. History of hypertension. Change amiodarone to 200 p.o. b.i.d. We will continue this for short course to maintain normal sinus rhythm. No anticoagulation at this point in time. Wean ventilator per primary and Critical Care teams. We will obtain a 2D cardiac echocardiogram. We will continue to follow along with you. DO KARUNA Santos/MODL /[id number]
[2020-03-18] MEDS: ACETAMINOPHEN 325 MG TAB PO PRN (20:19)
[2020-03-19] VITALS (25 sets, daily range): BP systolic 89–127; BP diastolic 49–84
[2020-03-19] MEDS: METOCLOPRAMIDE HCL 10 MG/2ML VIAL IV SCH ×4 (00:10→17:59)
[2020-03-19] MEDS: MIDAZOLAM HCL 5MG/ML 10ML VIAL 100 ML IV PRN ×2 (01:33→23:08)
[2020-03-19] MEDS: VANCOMYCIN 500MG/NS 0.9% 100ML 100 ML IV SCH ×2 (02:38→15:48)
[2020-03-19] MEDS ORDERED: ALBUMIN 25% 12.5GM 0.25 GM/ML BTL IV ONE (02:45)
[2020-03-19] MEDS: CEFEPIME 1GM/NS 0.9% 50 ML 50 ML IV SCH ×2 (04:23→17:21)
[2020-03-19 05:26] LABS: BASOPHILS # (AUTO) 0.1 (0.0-0.1); BASOPHILS % 0.3 % (0.0-1.0); EOSINOPHILS % 0.1 % (0.0-6.0); HEMOGLOBIN 8.5 g/dL (12.0-16.0); LYMPHOCYTES # (AUTO) 2.3 (1.0-3.2); LYMPHOCYTES % 12.2 % (18.0-39.1); MEAN CORPUSCULAR HEMOGLOBIN 28.6 pg (28-32); MEAN CORPUSCULAR HGB CONC 30.4 g/dL (31-35); MEAN CORPUSCULAR VOLUME 94.3 fL (81-99); MONOCYTES # (AUTO) 1.4 (0.2-0.8); MONOCYTES % 7.4 % (4.4-11.3); NEUTROPHILS # (AUTO) 14.9 (2.1-6.9); NEUTROPHILS % 79.2 % (38.7-80.0); PLATELET COUNT 217 x10e3/uL (140-360); RED BLOOD COUNT 2.97 x10e6/uL (3.6-5.1); RED CELL DISTRIBUTION WIDTH 13.7 % (11.7-14.4)
[2020-03-19 05:53] LABS: ALANINE AMINOTRANSFERASE 9 IU/L (0-55); ALBUMIN 3.2 g/dL (3.5-5.0); ALBUMIN/GLOBULIN RATIO 1.3 (0.8-2.0); ALKALINE PHOSPHATASE 42 IU/L (40-150); ANION GAP 13.9 mmol/L (8-16); BLOOD UREA NITROGEN 21 mg/dL (7-26); BUN/CREATININE RATIO 25 (6-25); CARBON DIOXIDE 20 mmol/L (22-29); CHLORIDE 108 mmol/L (98-107); CREATININE, SERUM 0.83 mg/dL (0.57-1.11); EST GLOMERULAR FILTRATION RATE > 60 ML/MIN (60-); GLUCOSE 102 mg/dL (74-118); POTASSIUM 3.9 mmol/L (3.5-5.1); SODIUM 138 mmol/L (136-145)
--- NOTE | 2020-03-19 08:12 | Progress Note ---
DATE: SUBJECTIVE: The patient has been admitted to the hospital with severe sepsis, pneumonia, encephalopathy, and also acute respiratory failure. The patient is intubated. Yesterday, the patient was given some Lasix. Urine output was increased. However, the patient's blood pressure did drop. Albumin was given. The patient's blood pressure is better and a small bolus of 500 mL were given. PHYSICAL EXAMINATION: VITAL SIGNS: Temperature is 99, pulse of 93, respirations of 21, blood pressure is 111/78, pulse oximetry of 94%. HEENT: The patient has an ET tube in. CVS: S1 and S2, tachy. ABDOMEN: Soft, nontender, and nondistended. EXTREMITIES: No clubbing, no cyanosis, no edema. I's and O's, the patient has negative balance of 255 from yesterday. MEDICATIONS: Reviewed. LABORATORY VALUES: White count has gone trended slightly up to 18,000, hemoglobin of 8.5, hematocrit 28.0, and platelet count is 217. Chemistry; sodium of 138, potassium 3.9, chloride of 108, CO2 of 20, BUN 21 and creatinine 0.83. Serology; coronavirus has not been detected x2. DIAGNOSTIC STUDIES: Chest x-ray from yesterday shows increase in bilateral airspace opacities compared to prior x-rays. Echocardiogram done, not available at this time. ASSESSMENT AND PLAN: Ms. Karsten Bush with: 1. Acute respiratory failure. 2. Severe sepsis. 3. Pneumonia. 4. Paroxysmal atrial fibrillation. 5. Hypertension with diuresis. 6. Metabolic acidosis. PLAN: Continue on amiodarone. Continue with enteral feedings. Antibiotics reviewed. Replace electrolytes as needed. We will continue to clear of sedation and attempt spontaneous breathing. The patient, at this time, looks like she is declining. We will continue holding off. Further recommendation per clinical course. Prognosis is guarded. We will talk to the son, Leonel. MD NAVA HassanJ/MODL /[id number]
--- NOTE | 2020-03-19 08:23 | Diagnostic Imaging Report ---
Examination: Single AP view of the chest. COMPARISON: 03/18/2020 INDICATION: Respiratory failure, viral pneumonia DISCUSSION: Endotracheal tube, enteric tube, and right internal jugular central venous catheter are stable in position. When accounting for differences in technique, no appreciable interval change in confluent bilateral multifocal airspace disease right worse than left. Trace left pleural effusion is suspected Stable cardiomediastinal contour. No acute osseous abnormalities. IMPRESSION: Stable position of support lines and tubes. Overall stable findings of multifocal pneumonia. Trace left pleural effusion. Signed by: Dr. Ja Hollins M.D. on 03/19/2020 8:19 AM
[2020-03-19] MEDS: CLONIDINE HCL 0.1 MG TAB PO SCH ×2 (08:35→15:49)
[2020-03-19] MEDS: PANTOPRAZOLE 40 MG 10ML VIAL IV SCH ×2 (08:35→19:52)
[2020-03-19] MEDS: ASPIRIN 81 MG CHEW TAB PO SCH ×2 (08:35→16:16)
[2020-03-19] MEDS: AMIODARONE HCL 200 MG TAB PO SCH ×2 (08:35→16:16)
[2020-03-19] MEDS: METOPROLOL TARTRATE 25 MG TAB PO SCH ×2 (08:36→16:16)
--- NOTE | 2020-03-19 08:47 | NUR ---
infectious disease progress note patient seen and examined chart reviewed March 19, 2020 Patient remains intensive care unit patient seen and examined and discussed with medical team please refer to orders. Patient remains on a ventilator he patient has been admitted to the hospital with severe sepsis, pneumonia, encephalopathy, and also acute respiratory failure. The patient is intubated. Yesterday, the patient was given some Lasix. Urine output was increased. However, the patient's blood pressure did drop. Albumin was given. The patient's blood pressure is better and a small bolus of 500 mL were given. PHYSICAL EXAMINATION: VITAL SIGNS: Temperature is 99, pulse of 93, respirations of 21, blood pressure is 111/78, pulse oximetry of 94%. HEENT: The patient has an ET tube in. patient is not pale or icteric CVS: S1 and S2, tachy. ABDOMEN: Soft, nontender, and nondistended. EXTREMITIES: No clubbing, no cyanosis, no edema. I's and O's, the patient has negative balance of 255 from yesterday. MEDICATIONS: Reviewed. LABORATORY VALUES: White count has gone trended slightly up to 18,000, hemoglobin of 8.5, hematocrit 28.0, and platelet count is 217. Chemistry; sodium of 138, potassium 3.9, chloride of 108, CO2 of 20, BUN 21 and creatinine 0.83. Serology; coronavirus has not been detected x2. DIAGNOSTIC STUDIES: Chest x-ray from yesterday shows increase in bilateral airspace opacities compared to prior x-rays. Echocardiogram done, not available at this time. respiratory failure Sepsis Pneumonia on admission Continue with antibiotics as ordered
[2020-03-19] MEDS ORDERED: FUROSEMIDE INJ 10 MG/ML 4 ML VIAL IV ONE (10:55)
[2020-03-19] MEDS: ACETAMINOPHEN 325 MG TAB PO PRN (11:16)
--- NOTE | 2020-03-19 11:28 | Progress Note ---
DATE: Cardiology Progress Note SUBJECTIVE: The patient's case discussed with nurse. The patient has remained in normal sinus rhythm. No active cardiac conditions other than some pulmonary edema, and she remains mechanically ventilated. OBJECTIVE: VITAL SIGNS: Temperature is 99.9, heart rate is 95, respirations are 24, blood pressure is 118/71, oxygen saturation 94% on mechanical ventilation at 45% FiO2. GENERAL: Elderly woman, intubated and sedated. Follows commands. CARDIOVASCULAR: Regular rate and rhythm. LUNGS: Diminished breath sounds at the bases. ABDOMEN: Soft, nontender, nondistended. EXTREMITIES: No edema. CARDIOVASCULAR MEDICATIONS: Reviewed. LABORATORY DATA: Reviewed. White blood cell count is 18.8. Creatinine is 0.83, potassium is 3.9. Telemetry monitoring was personally reviewed and shows normal sinus rhythm. Echocardiogram showed severe reduction in systolic function. IMPRESSION: 1. Paroxysmal atrial fibrillation. 2. Respiratory failure with hypoxia. 3. Pulmonary edema. 4. Acute systolic congestive heart failure. 5. History of hypertension. RECOMMENDATIONS: Continue amiodarone 200 mg per G-tube b.i.d. Continue intermittent diuretics for pulmonary edema. The patient will need to be placed on optimal medical therapy for her heart failure. Continue metoprolol for rate reduction. We would recommend discontinuation of clonidine. We can restart an TARUN inhibitor as tolerated going forward. DO KARUNA Santos/MODL /[id number]
--- NOTE | 2020-03-19 15:12 | NUR ---
Nutrition Intervention Note RD Recommendation(s) for Physician: - Recommend TF change to Vital HP with goal rate of 50 ml/hr (to provide 1200 kcal and 105 gm protein). - Water flushes and fluid management per MD. Plan of Care: RD following, TF rec's, monitoring for tolerance and adequacy Nutrition reason for involvement: new TF, new intubation RD Assessment 03/19: 69 YOF admitted for pneumonia with SOB, + N/V reported REFERRAL MANAGEMENT LIAISON. Pt negative x 2 for COVID-19 on admit. Pt remains intubated, on sedation this am with plan for sedation holiday per MD notes. Pt tolerating TF at goal rate of 30 ml/hr. Pt discussed with Dr. Andres, order given for RD to manage TF order. Chart reviewed. Will continue to monitor. Principal Problems/Diagnoses: Pneumonia PMH: HTN, esophageal reflux, colon polyps GI: No BM recorded, + N/V REFERRAL MANAGEMENT LIAISON Skin: intact Labs: 03/19: Na 138, K 3.9, BUN 21, Cr 0.83, Gluc 102 Meds: protonix, reglan, abx, azithromycin, IV albumin, KCl IVF/Drips: Versed drip Ht: 60 in Wt: 145 lb BMI: 28.3 kg/m2 IBW: 100 lb Malnutrition Evaluation (03/19/20) The patient does not meet criteria for a specified degree of malnutrition at this time- unable to complete assessment per current intubation status. Will re-evaluate at follow-up as appropriate. Energy intake: ANTHONY, pt intubated- unable to obtain hx Weight loss: ANTHONY, pt intubated- unable to obtain hx, no recent wt hx per chart Fat loss: none, ample skinfold thickness Muscle loss: none, shoulder round Supporting Evidence: Fluid accumulation: none observed Functional Status: unable to evaluate- pt intubated and sedated Nutrition Prescription (Diet Order): Glucerna 1.2 at 30 ml/hr (864 kcal and 43 gm protein) Estimated Nutritional Needs: 9050-5011 calories/day (18-20 kcal/kg CBW) CBW: 145lb 86-132 g protein/day (1.3-2 g pro/kg CBW) CBW: 145lb Diet Adequacy: Not meeting calorie needs, Not meeting protein needs Diet Tolerance: tolerating TF at 30 ml/hr Diet Education Needs Assessment: Diet education not indicated, patient intubated. Nutrition Care Level: moderate Nutrition Diagnosis: Inadequate energy and protein intake related to intubation as evidenced by requiring EN on vent. Goal: Patient will meet 75-100% of estimated needs by follow up Progress: N/A Interventions: -Composition, Rate, Route, IVF, Prescription medications, Recommended Modifications, Collaboration with other providers Monitoring/Evaluation: -Total energy intake, Total protein intake, Formula/Solution, Prescription medication Signed: Norma Galvez RD, LUDY, CNSC
[2020-03-19] MEDS: AZITHROMYCIN 500MG/NS 250 ML 250 ML IV SCH (17:59)
[2020-03-19] MEDS: ALBUMIN 25% 12.5GM 50ML 100 ML IV SCH ×2 (17:59→23:39)
[2020-03-19] MEDS ORDERED: FUROSEMIDE INJ 10 MG/ML 2 ML VIAL IV SCH (18:15)
--- NOTE | 2020-03-19 18:45 | Progress Note ---
DATE: Pulmonary Critical Care Progress Note. SUBJECTIVE: The patient was tried on a spontaneous breathing trial this morning. She became tachypneic. She had to be placed back on a PRVC mode of ventilation. The patient subsequently received Lasix. She was negative 1400 mL. PHYSICAL EXAMINATION: VITAL SIGNS: The patient's temperature is 100.8, blood pressure is 107/67, heart rate is 81. HEENT: Shows no facial swelling or erythema. The oropharynx is normal. LYMPHATIC: Shows no submandibular, cervical, or supraclavicular adenopathy. CARDIAC: Reveals regular rate and rhythm. Normal S1, S2. LUNGS: Auscultation of lungs reveals crackles at the bases. There is no wheezing. ABDOMEN: Soft and nontender. There is no rebound or guarding. EXTREMITIES: Shows no leg edema or calf tenderness. There is no cyanosis or clubbing. SKIN: Shows no rashes. NEUROLOGICAL: Shows no focal abnormalities. LABORATORY DATA: White blood cell count is 18.8, hemoglobin is 8.5, and the platelet count is 217. BUN to creatinine ratio is normal. The other electrolytes are within normal limits. RADIOGRAPHIC DATA: Chest x-ray shows bilateral infiltrates. IMPRESSION: 1. Acute respiratory failure. 2. Acute on chronic systolic congestive heart failure. 3. Aspiration pneumonia with sepsis, present on admission. 4. Hypertension. 5. Paroxysmal atrial fibrillation. PLAN: 1. Continue low-dose Versed overnight. 2. Continue PRVC mode of ventilation. 3. Continue current antibiotics. 4. Continue diuresis. 5. Repeat spontaneous breathing trial tomorrow. Greater than 35 minutes in direct critical care time. Christofer Andres MD [facility]/MODL /[id number]
[2020-03-19] MEDS ORDERED: ALBUMIN 25% 25GM 100ML 0.25 GM/ML BTL IV ONE (20:00)
[2020-03-19] MEDS ORDERED: ALBUMIN 25% 12.5GM 50ML 100 ML IV ONE (20:30)
[2020-03-19] MEDS: FENTANYL 2000MCG/NS 250 250 ML IV PRN (21:34)
[2020-03-20] VITALS (25 sets, daily range): BP systolic 76–121; BP diastolic 51–75
[2020-03-20] MEDS: VANCOMYCIN 500MG/NS 0.9% 100ML 100 ML IV SCH (02:45)
[2020-03-20] MEDS: METOCLOPRAMIDE HCL 10 MG/2ML VIAL IV SCH ×5 (05:20→23:19)
[2020-03-20] MEDS: CEFEPIME 1GM/NS 0.9% 50 ML 50 ML IV SCH ×2 (05:20→17:45)
[2020-03-20 05:22] LABS: BASOPHILS % 0.2 % (0.0-1.0); EOSINOPHILS % 0.2 % (0.0-6.0); HEMATOCRIT 25.6 % (34.2-44.1); HEMOGLOBIN 8.1 g/dL (12.0-16.0); LYMPHOCYTES # (AUTO) 0.9 (1.0-3.2); LYMPHOCYTES % 4.7 % (18.0-39.1); MEAN CORPUSCULAR HEMOGLOBIN 30.5 pg (28-32); MEAN CORPUSCULAR HGB CONC 31.6 g/dL (31-35); MEAN CORPUSCULAR VOLUME 96.2 fL (81-99); MONOCYTES % 5.1 % (4.4-11.3); NEUTROPHILS # (AUTO) 17.1 (2.1-6.9); PLATELET COUNT 196 x10e3/uL (140-360); RED BLOOD COUNT 2.66 x10e6/uL (3.6-5.1)
[2020-03-20 05:45] LABS: ALANINE AMINOTRANSFERASE 12 IU/L (0-55); ALBUMIN 3.5 g/dL (3.5-5.0); ALBUMIN/GLOBULIN RATIO 1.7 (0.8-2.0); ALKALINE PHOSPHATASE 78 IU/L (40-150); ANION GAP 13.5 mmol/L (8-16); BLOOD UREA NITROGEN 26 mg/dL (7-26); BUN/CREATININE RATIO 33 (6-25); CALCIUM 8.3 mg/dL (8.4-10.2); CARBON DIOXIDE 22 mmol/L (22-29); CHLORIDE 105 mmol/L (98-107); EST GLOMERULAR FILTRATION RATE > 60 ML/MIN (60-); GLUCOSE 123 mg/dL (74-118); POTASSIUM 3.5 mmol/L (3.5-5.1); SODIUM 137 mmol/L (136-145)
--- NOTE | 2020-03-20 08:26 | Diagnostic Imaging Report ---
TECHNIQUE: Frontal view of the chest. INDICATION: ^resp failure ^[id number] ^0610 COMPARISON: Prior day. DISCUSSION: Limited evaluation due to portable technique. Lines and hardware: Stable. Heart and mediastinum: Stable. Lungs and pleura: Stable diffuse ill-defined interstitial opacities bilaterally. Question small effusions at the lung bases. Negative for large pneumothorax. Soft tissues and bones: No acute abnormality. IMPRESSION: Stable exam. Signed by: Jorge A Sharma MD on 03/20/2020 8:23 AM
--- NOTE | 2020-03-20 08:58 | Progress Note ---
DATE: SUBJECTIVE: A 69-year-old female who came in with acute respiratory failure, multifocal pneumonia. The patient is intubated, currently. The patient overnight did have some agitation. The patient was started on some on fentanyl, on tube feed at this time. MEDICATIONS: Reviewed. Currently on cefepime, azithromycin, and vancomycin. The patient is also on amiodarone for rate control. PHYSICAL EXAMINATION: VITAL SIGNS: Temperature is 98.6, pulse of 92. Respirations, on mechanical ventilator. FiO2 is 75% with a PEEP of 5. HEENT: The patient is intubated. No facial swelling noted. CVS: S1 and S2. Regular. ABDOMEN: Soft, nontender, nondistended. EXTREMITIES: No clubbing, no cyanosis, no edema. Garcia catheter to gravity and tube feeds ongoing with this. LABORATORY DATA: Today's white count is 19,000, hemoglobin of 8.1, hematocrit 25.6, neutrophil count of 89. Chemistries; 137 sodium, potassium is 3.5, BUN of 26 and creatinine 0.80, glucose in the 120s to 150s. Urine and blood cultures, so far no growth. ASSESSMENT AND PLAN: Ms. Karsten Bush with acute respiratory failure, acute on chronic systolic congestive heart failure, sepsis, hypertension, paroxysmal atrial fibrillation, hyperlipidemia, and respiratory failure with hypoxia. PLAN: Continue on amiodarone b.i.d. antibiotics as reviewed earlier. Continue with vent settings. The patient failed a trial yesterday. Continue to monitor the patient. Prognosis remains guarded. Keep updating the family. Further recommendation per clinical course. MD CODY Hassan/MODL /[id number]
--- NOTE | 2020-03-20 09:09 | Progress Note ---
DATE: Pulmonary Critical Care Progress Note SUBJECTIVE: The patient's oxygenation was increased from 45% to 70% this morning. She remains on a PRVC mode of ventilation. Despite receiving Lasix, she is only 10 mL negative over the past 24 hours. PHYSICAL EXAMINATION: VITAL SIGNS: The T-max is 101. Blood pressure is 112/70 and the saturation is 93%. She is currently on a PRVC mode of ventilation, rate of 24 with a tidal volume of 400. PEEP of 5 and an FiO2 of 75%. HEENT: Shows no facial swelling or erythema. LYMPHATIC: Shows no submandibular, cervical, or supraclavicular adenopathy. CARDIAC: Reveals regular rate and rhythm with normal S1 and S2. LUNGS: Auscultation of lungs reveals crackles at the bases. There is no wheezing. ABDOMEN: Soft, nontender. There is no rebound or guarding. EXTREMITIES: Shows no leg edema or calf tenderness. There is no cyanosis or clubbing. SKIN: Shows no rashes. NEUROLOGIC: Shows the patient to be sedated, but arousable. LABORATORY DATA: White blood cell count is 19.1, hemoglobin is 8.1, platelet count is 196. The BUN to creatinine ratio is normal. The potassium is 3.5. IMPRESSION: 1. Acute respiratory failure. 2. Aspiration pneumonia with severe sepsis, present on admission. 3. Iqbst-sr-pzvgyxy systolic congestive heart failure. 4. Paroxysmal atrial fibrillation. 5. Hypertension. PLAN: 1. The patient will receive Lasix again. Her BNP is elevated and her ejection fraction is decreased. 2. Continue current antibiotics and await final culture results. 3. Tracheal aspirate for COVID-19 infection. The sensitivity of the tracheal aspirate is significantly higher than the nasal swab. 4. Continue amiodarone. 5. Continue enteral feedings as tolerated. 6. Continue low-dose Versed and fentanyl. Greater than 35 minutes in direct critical care time. Christofer Andres MD [facility]/MODL /[id number]
[2020-03-20] MEDS ORDERED: FUROSEMIDE INJ 10 MG/ML 2 ML VIAL IV ONE (09:15)
[2020-03-20] MEDS: ASPIRIN 81 MG CHEW TAB PO SCH ×2 (09:16→17:44)
[2020-03-20] MEDS: AMIODARONE HCL 200 MG TAB PO SCH ×2 (09:16→17:44)
[2020-03-20] MEDS: PANTOPRAZOLE 40 MG 10ML VIAL IV SCH ×2 (09:16→21:00)
[2020-03-20] MEDS: METOPROLOL TARTRATE 25 MG TAB PO SCH ×2 (09:16→17:45)
[2020-03-20] MEDS: ENOXAPARIN SOD INJ 40 MG/0.4 ML SYR SC SCH (09:25)
[2020-03-20 10:20] LABS: ABG HCO3 24 mmol/L (22-26); ABG PCO2 39 mmHg (35-45); ABG PO2 60 mmHg (80-105)
[2020-03-20 10:21] LABS: ABG TCO2 25
--- NOTE | 2020-03-20 12:16 | NUR ---
called pt's son, Leonel Gibbons ([phone]) to offer emotional/spiritual support. Pt's son states they are "holding up" under the circumstances. Pt's son states he "understands the necessity" of visiting restrictions due to the pandemic. provided empathic listening and information on how to reach field operator, if needed. Will follow as able. GERMÁN Lugo Spiritual Care Department O: [phone] Addendum: 03/21/20 at 1222 by Germán MARTINO CORRECTION: This telephonic visit took place on 03/19/20. GERMÁN JOCYPR Medical Technician Assistant Spiritual Care Department O: [phone]
[2020-03-20] MEDS: ACETAMINOPHEN 325 MG TAB PO PRN (12:19)
--- NOTE | 2020-03-20 14:39 | NUR ---
infectious disease progress note Patient seen and examined chart reviewed and discussed with the medical team Patient remains on a ventilator and intubated seems to be comfortable Her vitals are stable afebrile The patient's oxygenation was increased from 45% to 70% this morning. She remains on a PRVC mode of ventilation. Despite receiving Lasix, she is only 10 mL negative over the past 24 hours. PHYSICAL EXAMINATION: VITAL SIGNS: The T-max is 101. Blood pressure is 112/70 and the saturation is 93%. She is currently on a PRVC mode of ventilation, rate of 24 with a tidal volume of 400. PEEP of 5 and an FiO2 of 75%. HEENT: Shows no facial swelling or erythema. LYMPHATIC: Shows no submandibular, cervical, or supraclavicular adenopathy. CARDIAC: Reveals regular rate and rhythm with normal S1 and S2. LUNGS: Auscultation of lungs reveals crackles at the bases. There is no wheezing. ABDOMEN: Soft, nontender. There is no rebound or guarding. EXTREMITIES: Shows no leg edema or calf tenderness. There is no cyanosis or clubbing. SKIN: Shows no rashes. NEUROLOGIC: Shows the patient to be sedated, but arousable. LABORATORY DATA: White blood cell count is 19.1, hemoglobin is 8.1, platelet count is 196. The BUN to creatinine ratio is normal. The potassium is 3.5. IMPRESSION: 1. Acute respiratory failure. 2. Aspiration pneumonia with severe sepsis, present on admission. 3. Ajzba-sm-umxjzuw systolic congestive heart failure. 4. Paroxysmal atrial fibrillation. 5. Hypertension. fever leukocytosis dc vanc and zithomax covid neg
[2020-03-20] MEDS: ALBUMIN 25% 25GM 100ML 100 ML IV SCH ×2 (17:45→23:26)
[2020-03-20] MEDS ORDERED: ALBUMIN 25% 25GM 100ML 0.25 GM/ML BTL IV SCH (18:00)
--- NOTE | 2020-03-20 20:08 | Progress Note ---
DATE: Cardiology Progress Note SUBJECTIVE: The patient is still currently intubated, sedated, oxygen requirements increased. OBJECTIVE: VITAL SIGNS: Temperature is 101.4, heart rate 80, respirations 18, blood pressure is 88/51, oxygen saturation is 95% on mechanical ventilation with an FiO2 of 75. GENERAL: A chronically ill-appearing elderly woman, intubated and sedated. CARDIOVASCULAR: Regular rate and rhythm. LUNGS: Diminished breath sounds at the bases. ABDOMEN: Soft, nondistended. LABORATORY DATA: Reviewed. White blood cell count 19.5, creatinine 0.8. Telemetry monitoring showed normal sinus rhythm. Chest x-ray shows stable diffuse ill-defined interstitial opacities. IMPRESSION: 1. Paroxysmal atrial fibrillation. 2. Khzpi-ba-qlsazyd systolic congestive heart failure. 3. Respiratory failure with hypoxia. 4. Pulmonary edema. 5. Pneumonia. 6. Hypotension. 7. Leukocytosis. RECOMMENDATIONS: Continue amiodarone per G-tube b.i.d. Continue intermittent diuretics for pulmonary edema. Use cautiously as she is hypotensive. Continue antibiotics per Pulmonary Critical Care. Holding parameters for her metoprolol. Discontinue her clonidine. We will continue to follow. DO KARUNA Santos/GM /[id number]
[2020-03-21] VITALS (27 sets, daily range): BP systolic 85–118; BP diastolic 53–73
[2020-03-21] MEDS ORDERED: MAGNESIUM HYDROXIDE 30 ML UDC PO ONE ×2 (02:45→10:00)
[2020-03-21] MEDS: CEFEPIME 1GM/NS 0.9% 50 ML 50 ML IV SCH (04:58)
[2020-03-21] MEDS: ALBUMIN 25% 25GM 100ML 100 ML IV SCH (05:29)
[2020-03-21] MEDS: METOCLOPRAMIDE HCL 10 MG/2ML VIAL IV SCH ×4 (05:29→23:22)
[2020-03-21 05:46] LABS: BASOPHILS # (AUTO) 0.1 (0.0-0.1); BASOPHILS % 0.3 % (0.0-1.0); EOSINOPHILS # (AUTO) 0.3 (0.0-0.4); EOSINOPHILS % 1.5 % (0.0-6.0); HEMATOCRIT 23.7 % (34.2-44.1); HEMOGLOBIN 7.3 g/dL (12.0-16.0); LYMPHOCYTES # (AUTO) 1.1 (1.0-3.2); LYMPHOCYTES % 5.9 % (18.0-39.1); MEAN CORPUSCULAR HGB CONC 30.8 g/dL (31-35); MONOCYTES # (AUTO) 0.9 (0.2-0.8); MONOCYTES % 4.8 % (4.4-11.3); NEUTROPHILS # (AUTO) 15.6 (2.1-6.9); NEUTROPHILS % 86.7 % (38.7-80.0); PLATELET COUNT 174 x10e3/uL (140-360); RED BLOOD COUNT 2.52 x10e6/uL (3.6-5.1); RED CELL DISTRIBUTION WIDTH 13.9 % (11.7-14.4)
[2020-03-21 06:00] LABS: ALANINE AMINOTRANSFERASE 9 IU/L (0-55); ALBUMIN 3.3 g/dL (3.5-5.0); ALBUMIN/GLOBULIN RATIO 1.4 (0.8-2.0); ALKALINE PHOSPHATASE 65 IU/L (40-150); ANION GAP 15.5 mmol/L (8-16); BLOOD UREA NITROGEN 33 mg/dL (7-26); BUN/CREATININE RATIO 39 (6-25); CALCIUM 8.9 mg/dL (8.4-10.2); CARBON DIOXIDE 23 mmol/L (22-29); CHLORIDE 103 mmol/L (98-107); CREATININE, SERUM 0.85 mg/dL (0.57-1.11); EST GLOMERULAR FILTRATION RATE > 60 ML/MIN (60-); GLUCOSE 85 mg/dL (74-118); POTASSIUM 3.5 mmol/L (3.5-5.1); SODIUM 138 mmol/L (136-145)
[2020-03-21 06:39] LABS: IRON 14 ug/dL (50-170); TRANSFERRIN < 70 mg/dL (180-382)
[2020-03-21 06:59] LABS: FERRITIN 1711.86 ng/mL (4.63-204.00)
--- NOTE | 2020-03-21 07:20 | Progress Note ---
DATE: SUBJECTIVE: The patient is a 69-year-old female who came in with acute respiratory failure, pneumonia, and the patient is intubated currently. She is on ventilator support. PEEP of 5 and FiO2 had to be increased to 85% yesterday. MEDICATIONS: Reviewed. The patient is currently on enoxaparin, cefepime, and getting amiodarone for rate control and pantoprazole for GI prophylaxis. PHYSICAL EXAMINATION: VITAL SIGNS: Temperature is 99.9, T-max of 101.4, respirations of 21, blood pressure is 98/61, pulse oximetry 96%. HEENT: The patient is intubated. No facial edema present. CVS: S1 and S2 normal. Regular rate and rhythm. ABDOMEN: Soft, nontender, nondistended. EXTREMITIES: No clubbing. No cyanosis. No edema. Garcia catheter gravity present. LABORATORY VALUES: Today's white count is 17,000 down from 19,000 yesterday, hemoglobin is 7.3, hematocrit 23.7, platelet count of 174, neutrophil of 86.7. Chemistries; sodium of 138, potassium 3.5, BUN of 33, creatinine 0.58. Iron is 14, TIBC, percent saturation is pending. AST, ALT noted. Chest x-ray from yesterday showed no interval changes. ASSESSMENT AND PLAN: Ms. Karsten Bush with: 1. Acute respiratory failure. Her EF was 30%. 2. Acute on chronic congestive heart failure. 3. Sepsis. 4. Paroxysmal atrial fibrillation. 5. Hyperlipidemia. 6. Chronic obstructive pulmonary disease. 7. Hypoxia. 8. Iron deficiency anemia. PLAN: 1. Add iron Venofer once a day continuously for 5 days. 2. We will hold back on transfusion type and cross 2 units. Continue with respiratory support. Further recommendation per clinical course. We will continue to monitor the patient and we will keep updating the family. MD CODY Hassan/GM /[id number]
[2020-03-21 07:49] LABS: ABG PCO2 35 mmHg (35-45); ABG PH 7.42 (7.35-7.45)
[2020-03-21 07:50] LABS: ABG HCO3 23 mmol/L (22-26); ABG PO2 57 mmHg (80-105); ABG TCO2 24
--- NOTE | 2020-03-21 08:16 | Diagnostic Imaging Report ---
TECHNIQUE: Frontal view of the chest. INDICATION: ^resp failure ^[id number] ^0510 COMPARISON: Prior day. DISCUSSION: Limited evaluation due to portable technique. Lines and hardware: Stable. Heart and mediastinum: Stable. Lungs and pleura: Stable diffuse ill-defined interstitial opacities bilaterally with a perihilar and lower lobe predominance. Stable blunting of the costophrenic angles which could relate to small effusions. Negative for large pneumothorax. Soft tissues and bones: No acute abnormality. IMPRESSION: Stable exam. Signed by: Jorge A Sharma MD on 03/21/2020 8:12 AM
[2020-03-21] MEDS: AMIODARONE HCL 200 MG TAB PO SCH ×2 (08:38→17:14)
[2020-03-21] MEDS: PANTOPRAZOLE 40 MG 10ML VIAL IV SCH ×2 (08:38→20:19)
[2020-03-21] MEDS: METOPROLOL TARTRATE 25 MG TAB PO SCH ×2 (08:38→17:15)
[2020-03-21] MEDS: ASPIRIN 81 MG CHEW TAB PO SCH ×2 (08:38→17:14)
[2020-03-21] MEDS: ENOXAPARIN SOD INJ 40 MG/0.4 ML SYR SC SCH (08:38)
[2020-03-21] MEDS: IRON SUCROSE 100 MG in SODIUM CHLORIDE 0.9% 100 ML 100 ML IV SCH (08:41)
--- NOTE | 2020-03-21 10:06 | Progress Note ---
DATE: SUBJECTIVE: The patient is still on mechanical ventilation. She had some fever overnight. She had some diuresis with diuretics. PHYSICAL EXAMINATION: VITAL SIGNS: The blood pressure is 108/70 and the saturation is 93%. The temperature is 100.7. HEENT: Shows no facial swelling or erythema. The patient has an oral endotracheal tube. CARDIAC: Reveals regular rate and rhythm with normal S1 and S2. LUNGS: Auscultation of lungs reveals crackles and rhonchi at the bases. There is no wheezing. ABDOMEN: Soft and nontender. There is no rebound or guarding. EXTREMITIES: Shows no leg edema or calf tenderness. There is no cyanosis or clubbing. SKIN: Shows no rashes. NEUROLOGICAL: Shows no focal abnormalities. LABORATORY DATA: The white blood cell count is 17.9, hemoglobin is 7.3, and the platelet count is 174. The BUN to creatinine ratio is 33 to 0.85 and the other electrolytes are within normal limits. The albumin is 3.3. RADIOGRAPHIC DATA: Chest x-ray shows bilateral interstitial infiltrates. IMPRESSION: 1. Aspiration pneumonia with severe sepsis, present on admission. 2. Acute respiratory failure. 3. Uvyht-ki-mpengdz systolic congestive heart failure. 4. Paroxysmal atrial fibrillation. 5. Hypertension. PLAN: 1. Continue current antibiotics. 2. Continue enteral feedings. 3. Continue current cardiac regimen. 4. Continue ziod-ig-apzfsvnk sedation with low-dose Versed and fentanyl. Greater than 35 minutes in direct critical care time. MD YOVANI Woodward/GM /[id number]
--- NOTE | 2020-03-21 10:17 | Progress Note ---
DATE: Cardiology Progress Note SUBJECTIVE: The patient currently intubated and sedated. No cardiac events. OBJECTIVE: VITAL SIGNS: Temperature is 100.7, heart rate is 93, respirations are 24, blood pressure is 108/69, and oxygen saturation is 93% on 85% FiO2, being mechanically ventilated. GENERAL: Chronically ill-appearing, intubated and sedated. CARDIOVASCULAR: She has regular rate and rhythm. LUNGS: Diminished breath sounds at the bases. ABDOMEN: Soft and nondistended. EXTREMITIES: Trace edema. CARDIOVASCULAR MEDICATIONS: Reviewed. LABORATORY DATA: Reviewed. White blood cell count is 17.9. Creatinine 0.85. ABG showed a pH of 7.42, pCO2 35, and PO2 57. Chest x-ray, stable diffuse ill-defined interstitial opacities bilaterally. IMPRESSION: 1. Paroxysmal atrial fibrillation, currently normal sinus rhythm. 2. Luyyw-nv-zsalxdv systolic congestive heart failure. 3. Respiratory failure with hypoxia. 4. Pulmonary edema. 5. Pneumonia. 6. Hypertension. 7. Leukocytosis. RECOMMENDATIONS: Continue amiodarone and metoprolol for rate and rhythm control. No anticoagulation is indicated at this point in time. Continue intermittent Lasix dosing for her pulmonary edema. Wean ventilator per Pulmonary Critical Care. Continue antibiotic therapies. Wil Fang DO [facility]/MODL /[id number]
--- NOTE | 2020-03-21 17:00 | NUR ---
Output noted to be 175cc, Dr Andres made aware. New orders received and carried out.
[2020-03-21] MEDS ORDERED: ALBUMIN 25% 25GM 100ML 0.25 GM/ML BTL IV ONE (17:30)
[2020-03-21] MEDS ORDERED: ALBUMIN 25% 25GM 100ML 100 ML IV ONE (17:30)
[2020-03-21] MEDS ORDERED: FUROSEMIDE INJ 10 MG/ML 2 ML VIAL IV ONE (17:30)
--- NOTE | 2020-03-21 22:55 | History and Physical ---
SUBJECTIVE: Ms. Bush remains in the Intensive Care Unit. The patient has been here for 6 days. PHYSICAL EXAMINATION: GENERAL: Intubated and sedated. VITAL SIGNS: Stable currently. Her T-max has been 101.4. HEENT: Normocephalic. NECK: Supple. CHEST: Few crackles bilaterally. HEART: S1, S2. ABDOMEN: Soft. Bowel sounds present. EXTREMITIES: No edema. SKIN: No rash. LABORATORY DATA: Her blood cultures are negative. Her white count 17.6, hemoglobin 7.3. Sodium 138, potassium 3.5, creatinine of 0.85. IMPRESSION AND PLAN: 1. Respiratory failure. 2. Shortness of breath. 3. Pneumonia. The patient clinically seems to be stable. I am concerned about this fever. It is still a drug fever present time. I would recommend to discontinue antibiotic since the patient is clinically doing fairly well. The patient was aspirated. For pneumonia, the patient has been on 7 days of antibiotic. We will follow. MD TERRENCE Quintana/MODElva /[id number]
[2020-03-21] MEDS: ACETAMINOPHEN 325 MG TAB PO PRN (23:32)
[2020-03-22] VITALS (29 sets, daily range): BP systolic 80–114; BP diastolic 50–67
[2020-03-22] MEDS ORDERED: BISACODYL 10 MG SUPP PR ONE ×3 (03:14→03:17)
--- NOTE | 2020-03-22 03:24 | NUR ---
dr Elder ocampo is rounding, see pt in her room, made dr Ocampo aware patient residual is still more than 100cc. the MD ordered Dulcolax supp x1
[2020-03-22] MEDS: MIDAZOLAM HCL 5MG/ML 10ML VIAL 100 ML IV PRN (03:44)
[2020-03-22 04:52] LABS: BASOPHILS % 0.2 % (0.0-1.0); EOSINOPHILS # (AUTO) 0.4 (0.0-0.4); EOSINOPHILS % 2.1 % (0.0-6.0); LYMPHOCYTES # (AUTO) 1.1 (1.0-3.2); LYMPHOCYTES % 6.4 % (18.0-39.1); MEAN CORPUSCULAR HEMOGLOBIN 29.7 pg (28-32); MEAN CORPUSCULAR HGB CONC 30.8 g/dL (31-35); MEAN CORPUSCULAR VOLUME 96.5 fL (81-99); MONOCYTES # (AUTO) 1.2 (0.2-0.8); NEUTROPHILS # (AUTO) 14.2 (2.1-6.9); NEUTROPHILS % 83.3 % (38.7-80.0); PLATELET COUNT 233 x10e3/uL (140-360); RED BLOOD COUNT 2.29 x10e6/uL (3.6-5.1); RED CELL DISTRIBUTION WIDTH 14.1 % (11.7-14.4)
[2020-03-22 04:56] LABS: HEMATOCRIT 22.1 % (34.2-44.1); HEMOGLOBIN 6.8 g/dL (12.0-16.0)
[2020-03-22 05:11] LABS: ALBUMIN 3.1 g/dL (3.5-5.0); ALBUMIN/GLOBULIN RATIO 1.4 (0.8-2.0); ANION GAP 16.5 mmol/L (8-16); CALCIUM 8.7 mg/dL (8.4-10.2); CREATININE, SERUM 0.93 mg/dL (0.57-1.11); POTASSIUM 3.5 mmol/L (3.5-5.1)
[2020-03-22] MEDS: METOCLOPRAMIDE HCL 10 MG/2ML VIAL IV SCH ×3 (05:45→16:51)
[2020-03-22] MEDS ORDERED: SODIUM CHLORIDE 0.9% 250ML 250 ML IV ONE (06:00)
--- NOTE | 2020-03-22 08:27 | Progress Note ---
DATE: SUBJECTIVE: The patient came in with acute respiratory failure, currently intubated. The patient's hemoglobin was low, 1 unit transfusion has been noted. OBJECTIVE: VITAL SIGNS: Temperature is 98.5, pulse is 79, blood pressure is 91/59, pulse oximetry of 95% on FiO2 75% down from 85 yesterday. HEENT: Intubated. CVS: S1 and S2 normal. Regular rate and rhythm. ABDOMEN: Soft, nontender, nondistended. EXTREMITIES: No clubbing, no cyanosis, no edema. Garcia catheter to gravity. LABORATORY VALUES: Today's white count is 17,000, hemoglobin 6.8 is noted, hematocrit of 22.1. Chemistry shows sodium 140, potassium 3.5, BUN of 39, creatinine 0.93. SEROLOGY: Coronavirus not detected x3. IMAGING STUDIES: From yesterday shows stable exam. ASSESSMENT: Ms. Bush with: 1. Acute respiratory failure. 2. Ydhuq-of-bgvejua congestive heart failure. 3. Severe sepsis. 4. Paroxysmal atrial fibrillation. 5. Chronic obstructive pulmonary disease with history of smoking. 6. Iron deficiency anemia. 7. Anemia of questionable blood loss. PLAN: Continue with all antibiotics, monitoring antibiotics. Transfuse 1 unit of PRBC. Continue on Venofer. Respiratory support by Pulmonary. The patient continues to have enteral feeding. Current cardiac regimen to continue and has sedation on board at this time. Cardiology on board for paroxysmal atrial fibrillation and check electrolytes on a regular basis. Further recommendation per clinical course. We will continue to monitor the patient and check for stable H and H in about 6 hours. MD CODY Hassan/MODL /[id number]
--- NOTE | 2020-03-22 08:44 | Diagnostic Imaging Report ---
EXAMINATION: CHEST SINGLE (PORTABLE) INDICATION: Respiratory failure COMPARISON: Multiple prior chest radiograph most recently 03/21/2020 FINDINGS: LINES/TUBES:Support lines and tubes unchanged. LUNGS:The lungs are moderately inflated. Unchanged bilateral multifocal airspace opacities. PLEURA:No pleural effusion or pneumothorax. MEDIASTINUM:The cardiomediastinal silhouette appears unchanged in size and shape. BONES/SOFT TISSUES:No acute osseous injury. ABDOMEN:No free air under the diaphragm. IMPRESSION: No significant interval change. Signed by: Jamie Jensen MD on 03/22/2020 8:41 AM
[2020-03-22] MEDS: PANTOPRAZOLE 40 MG 10ML VIAL IV SCH ×2 (08:46→21:25)
[2020-03-22] MEDS: AMIODARONE HCL 200 MG TAB PO SCH ×2 (08:46→16:51)
[2020-03-22] MEDS: IRON SUCROSE 100 MG in SODIUM CHLORIDE 0.9% 100 ML 100 ML IV SCH (08:46)
[2020-03-22] MEDS: ENOXAPARIN SOD INJ 40 MG/0.4 ML SYR SC SCH (08:48)
[2020-03-22] MEDS: ASPIRIN 81 MG CHEW TAB PO SCH ×2 (08:50→16:50)
[2020-03-22] MEDS: METOPROLOL TARTRATE 25 MG TAB PO SCH ×2 (09:00→16:51)
--- NOTE | 2020-03-22 09:30 | NUR ---
Obtained phone consent from Leonel Gibbonse son and witness by Sánchez Mao RN placed on chart
--- NOTE | 2020-03-22 09:32 | NUR ---
Son informed nurse that Caro is a former daughter in law and his brother is . I informed him the patient listed her on paper work. He states he's not surprised. But he wanted to be listed as primary family member
[2020-03-22 10:03] LABS: ABG HCO3 25 mmol/L (22-26); ABG PCO2 42 mmHg (35-45); ABG PH 7.39 (7.35-7.45); ABG PO2 61 mmHg (80-105)
[2020-03-22 10:04] LABS: ABG TCO2 26
--- NOTE | 2020-03-22 11:00 | NUR ---
2nd type and match drawn labled and sent to lab witness with Sánchez Mao RN
[2020-03-22] MEDS ORDERED: SODIUM CHLORIDE 0.9% 250ML 250 ML ONE (13:31)
--- NOTE | 2020-03-22 13:35 | NUR ---
Dr Andres at bedside aware transfusion just started after 2nd type and match done per policy. See orders he said to give lasix after transfusion
[2020-03-22] MEDS ORDERED: FUROSEMIDE INJ 10 MG/ML 4 ML VIAL IV ONE (13:45)
--- NOTE | 2020-03-22 13:50 | NUR ---
infectious disease progress note the patient remains in intensive care unit extremely critical. Patient seen and examined and discussed with the medical team. Please refer to my orders. he patient came in with acute respiratory failure, currently intubated. The patient's hemoglobin was low, 1 unit transfusion has been noted. OBJECTIVE: VITAL SIGNS: Temperature is 98.5, pulse is 79, blood pressure is 91/59, pulse oximetry of 95% on FiO2 75% down from 85 yesterday. HEENT: Intubated. CVS: S1 and S2 normal. Regular rate and rhythm. ABDOMEN: Soft, nontender, nondistended. EXTREMITIES: No clubbing, no cyanosis, no edema. Garcia catheter to gravity. LABORATORY VALUES: Today's white count is 17,000, hemoglobin 6.8 is noted, hematocrit of 22.1. Chemistry shows sodium 140, potassium 3.5, BUN of 39, creatinine 0.93. SEROLOGY: Coronavirus not detected x3. IMAGING STUDIES: From yesterday shows stable exam. ASSESSMENT: Ms. Bush with: 1. Acute respiratory failure. 2. Nttxr-bj-rnvkpmd congestive heart failure. 3. Severe sepsis. 4. Paroxysmal atrial fibrillation. 5. Chronic obstructive pulmonary disease with history of smoking. 6. Iron deficiency anemia. 7. Anemia of questionable blood loss. the patient is off antibiotic status post treatment for aspiration pneumonia and the plan is to observe her
--- NOTE | 2020-03-22 14:28 | Progress Note ---
DATE: SUBJECTIVE: The patient had a low hemoglobin this morning. She is receiving 2 units of packed red blood cells. The patient remains on mechanical ventilation. PHYSICAL EXAMINATION: VITAL SIGNS: The patient is afebrile. The blood pressure is 88/54. She is on a PRVC at a rate of 18 with a tidal volume of 420 and FiO2 of 85%. Her PEEP is set at 8. HEENT: Shows no facial swelling or erythema. There is an oral endotracheal tube in place. The patient has an IJ line in place. CARDIAC: Reveals regular rate and rhythm with normal S1 and S2. LUNGS: Auscultation of lungs reveals rhonchorous breath sounds bilaterally. There is no wheezing. ABDOMEN: Soft and nontender. There is no rebound or guarding. EXTREMITIES: Shows no leg edema or calf tenderness. There is no cyanosis or clubbing. SKIN: Shows no rashes. NEUROLOGICAL: Shows no focal abnormalities. LABORATORY DATA: BUN to creatinine ratio is 39 to 0.93. Potassium is 3.5. Other electrolytes are within normal limits. Albumin is 3.1. The hemoglobin is 6.8 and the white blood cell count is 17.1. The platelet count is 233. RADIOGRAPHIC DATA: Chest x-ray shows bilateral airspace opacities. IMPRESSION: 1. Anemia secondary to chronic blood loss. 2. Aspiration pneumonia with severe sepsis, present on admission. 3. Daoyr-fq-oggwaob systolic congestive heart failure. 4. Paroxysmal atrial fibrillation. 5. Hypertension. PLAN: 1. Continue current antibiotics. 2. The patient to receive 2 units of packed red blood cells. 3. Continue current cardiac regimen. Greater than 35 minutes in direct critical care time. MD YOVANI Woodward/OSMANYL /[id number]
--- NOTE | 2020-03-22 16:00 | NUR ---
Dr Fang cardiology in unit
--- NOTE | 2020-03-22 17:44 | NUR ---
Nutrition Intervention Note RD Recommendation(s) for Physician: - Continue Vital HP and increase towards goal rate of 50 ml/hr (to provide 1200 kcal and 105 gm protein). - Water flushes and fluid management per MD. Plan of Care: RD following, TF rec's, monitoring for tolerance and adequacy Nutrition reason for involvement: follow up RD Assessment 03/22: Follow up. Pt remains intubated. Pt is receiving Vital HP @ 5 mL/hr per chart. Pt was having residuals of 200-450 mL since 03/20 per chart. Pt is on reglan. Pt was previously at goal rate on 03/20. Recommend advancing towards goal rate as appropriate. 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 Pt negative x 2 for COVID-19 on admit. Pt remains intubated, on sedation this am with plan for sedation holiday per MD notes. Pt tolerating TF at goal rate of 30 ml/hr. Pt discussed with Dr. Andres, order given for RD to manage TF order. Chart reviewed. Will continue to monitor. Principal Problems/Diagnoses: Pneumonia PMH: HTN, esophageal reflux, colon polyps GI: No BM recorded Skin: intact Labs: 03/22: Na 140, K 3.5, BUN 39, Cr 0.93, Glu 85 03/19: Na 138, K 3.9, BUN 21, Cr 0.83, Gluc 102 Meds: reglan, IV iron, protonix, fentanyl, metoprolol Ht: 60 in Wt: 145 lb BMI: 28.3 kg/m2 IBW: 100 lb Malnutrition Evaluation (03/22/20) The patient does not meet criteria for a specified degree of malnutrition at this time- unable to complete assessment per current intubation status. Will re-evaluate at follow-up as appropriate. Energy intake: not meeting needs x 2 days Weight loss: ANTHONY, pt intubated- unable to obtain hx, no recent wt hx per chart Fat loss: none, ample skinfold thickness Muscle loss: none, shoulder round Supporting Evidence: Fluid accumulation: none observed Functional Status: unable to evaluate- pt intubated and sedated Nutrition Prescription (Diet Order): Vital High Protein @ 50 mL/hr - infusing at 5 mL/hr Estimated Nutritional Needs: 6281-9287 calories/day (18-20 kcal/kg CBW) CBW: 145lb 86-132 g protein/day (1.3-2 g pro/kg CBW) CBW: 145lb Diet Adequacy: Not meeting calorie needs, Not meeting protein needs Diet Tolerance: pt is on low rate TF at 5 mL/hr Diet Education Needs Assessment: Diet education not indicated, patient intubated. Nutrition Care Level: moderate Nutrition Diagnosis: Inadequate energy and protein intake related to intubation as evidenced by requiring EN on vent. Goal: Patient will meet 75-100% of estimated needs by follow up Progress: goal not met at this time Interventions: -Composition, Rate, Route, Recommended modifications Monitoring/Evaluation: -Total energy intake, Total protein intake, Formula/Solution, Prescription medication Signed: Rfuina Luz RD, LD
--- NOTE | 2020-03-22 17:51 | NUR ---
H/H drawn labled and sent to lab
[2020-03-22 18:06] LABS: HEMATOCRIT 28.2 % (34.2-44.1); HEMOGLOBIN 8.8 g/dL (12.0-16.0)
--- NOTE | 2020-03-22 18:41 | NUR ---
reviewed labs H/H 8.8 AND 28.2
[2020-03-23] VITALS (25 sets, daily range): BP systolic 86–114; BP diastolic 52–66
[2020-03-23] MEDS: METOCLOPRAMIDE HCL 10 MG/2ML VIAL IV SCH ×4 (00:01→16:34)
[2020-03-23 05:05] LABS: BASOPHILS % 0.2 % (0.0-1.0); EOSINOPHILS # (AUTO) 0.6 (0.0-0.4); EOSINOPHILS % 3.5 % (0.0-6.0); HEMATOCRIT 26.6 % (34.2-44.1); HEMOGLOBIN 8.2 g/dL (12.0-16.0); LYMPHOCYTES # (AUTO) 1.2 (1.0-3.2); LYMPHOCYTES % 7.2 % (18.0-39.1); MEAN CORPUSCULAR HEMOGLOBIN 28.3 pg (28-32); MEAN CORPUSCULAR HGB CONC 30.8 g/dL (31-35); MEAN CORPUSCULAR VOLUME 91.7 fL (81-99); MONOCYTES # (AUTO) 1.4 (0.2-0.8); MONOCYTES % 8.2 % (4.4-11.3); NEUTROPHILS # (AUTO) 13.1 (2.1-6.9); NEUTROPHILS % 79.9 % (38.7-80.0); PLATELET COUNT 305 x10e3/uL (140-360); RED CELL DISTRIBUTION WIDTH 15.6 % (11.7-14.4)
[2020-03-23 05:34] LABS: AMYLASE 8 U/L (25-125)
[2020-03-23 05:36] LABS: ALANINE AMINOTRANSFERASE 10 IU/L (0-55); ALBUMIN 2.5 g/dL (3.5-5.0); ALKALINE PHOSPHATASE 91 IU/L (40-150); ANION GAP 14.2 mmol/L (8-16); BLOOD UREA NITROGEN 41 mg/dL (7-26); BUN/CREATININE RATIO 49 (6-25); CALCIUM 8.9 mg/dL (8.4-10.2); CARBON DIOXIDE 26 mmol/L (22-29); CHLORIDE 103 mmol/L (98-107); CREATININE, SERUM 0.84 mg/dL (0.57-1.11); EST GLOMERULAR FILTRATION RATE > 60 ML/MIN (60-); GLUCOSE 84 mg/dL (74-118); POTASSIUM 3.2 mmol/L (3.5-5.1); SODIUM 140 mmol/L (136-145)
[2020-03-23 05:47] LABS: LIPASE < 4 U/L (8-78)
--- NOTE | 2020-03-23 07:36 | Diagnostic Imaging Report ---
EXAMINATION: CHEST SINGLE (PORTABLE) INDICATION: Respiratory failure COMPARISON: Multiple prior chest radiograph most recently 03/22/2020. FINDINGS: LINES/TUBES:The endotracheal tube terminates 1.8 cm above the lawrence. Enteric tube courses into the stomach, the tip is not seen. Right IJ central venous catheter terminates in the expected location of the SVC. LUNGS:The lungs are moderately inflated. Bilateral diffuse multifocal opacities, slightly decreased in the right midlung and slightly increased in the left lower lung. PLEURA:No pleural effusion or pneumothorax. MEDIASTINUM:The cardiomediastinal silhouette is partially secured by overlying opacities. BONES/SOFT TISSUES:No acute osseous abnormality. ABDOMEN:No free air under the diaphragm. IMPRESSION: Findings of multifocal pneumonia. Lines and tubes as above. Signed by: Dr. Conchita Nuñez MD on 03/23/2020 7:33 AM
--- NOTE | 2020-03-23 08:17 | Progress Note ---
DATE: SUBJECTIVE: A 69-year-old female, who came in with acute respiratory failure, pneumonia, currently still intubated. She is on a PEEP of 5, FiO2 of 85%, currently intubated. No events per the nursing staff yesterday. OBJECTIVE: VITAL SIGNS: Temperature is 99.5, T-max is 99.5, pulse of 87, blood pressure is 97/60, pulse oximetry of 99% on mechanical ventilator, FiO2 of 85%. HEENT: Normocephalic and atraumatic. No edema present. CVS: S1 and S2, tachy. ABDOMEN: Soft, nontender, nondistended. EXTREMITIES: No clubbing, no cyanosis, no edema. LABORATORY VALUES: From today white count is 16,000 down from 17,000 yesterday, hemoglobin of 8.2, status post transfusion, hematocrit 26.6, neutrophil count of 79.9. Chemistry shows sodium 140, potassium of 3.2, BUN of 41, creatinine of 0.84. ALT and AST are normal. Serology; coronavirus not detected x3. ASSESSMENT: Ms. Karsten Bush with: 1. Acute respiratory failure with intubation. 2. Iqruq-rw-qlcezbm congestive heart failure. Cardiology on case. Severe sepsis, on antibiotic. 3. Paroxysmal atrial fibrillation. 4. Chronic obstructive pulmonary disease with history of smoking. 5. Iron deficiency anemia. 6. Anemia of blood loss. PLAN: The patient has been transfused 2 units of PRBC. The blood is up. The patient is also getting Venofer for iron deficiency. Antibiotics to be continued. The patient is currently on no antibiotics at this time. We will review into that. Continue amiodarone 200 mg twice a day. Further recommendation per clinical course. We will continue to monitor the patient. MD CODY Hassan/MODL /[id number]
--- NOTE | 2020-03-23 09:36 | Diagnostic Imaging Report ---
Exam: KUB - 2 views Clinical History: Tube feed intolerance. Comparison: KUB-16-20 20. Findings: Partially seen enteric tube which terminates in the distal stomach. Paucity of air in the small and large bowel, which limits evaluation for bowel obstruction. No evidence of free intraperitoneal air. No evidence of abnormal calcification. No acute bony abnormality. Status post cholecystectomy. Impression: Paucity of air in the small and large bowel, which limits evaluation for bowel obstruction. Signed by: Dr. Conchita Nuñez MD on 03/23/2020 9:32 AM
--- NOTE | 2020-03-23 10:13 | NUR ---
Infectious disease progress note March 23, 2020 Patient made intensive care unit patients to examine chart reviewed events noted. A 69-year-old female, who came in with acute respiratory failure, pneumonia, currently still intubated. She is on a PEEP of 5, FiO2 of 85%, currently intubated. No events per the nursing staff yesterday. OBJECTIVE: VITAL SIGNS: Temperature is 99.5, T-max is 99.5, pulse of 87, blood pressure is 97/60, pulse oximetry of 99% on mechanical ventilator, FiO2 of 85%. HEENT: Normocephalic and atraumatic. No edema present. CVS: S1 and S2, tachy. ABDOMEN: Soft, nontender, nondistended. EXTREMITIES: No clubbing, no cyanosis, no edema. LABORATORY VALUES: From today white count is 16,000 down from 17,000 yesterday, hemoglobin of 8.2, status post transfusion, hematocrit 26.6, neutrophil count of 79.9. Chemistry shows sodium 140, potassium of 3.2, BUN of 41, creatinine of 0.84. ALT and AST are normal. Serology; coronavirus not detected x3. ASSESSMENT: Ms. Karsten Bush with: 1. Acute respiratory failure with intubation. 2. Upeev-dt-okeiucf congestive heart failure. Cardiology on case. Severe sepsis, on antibiotic. 3. Paroxysmal atrial fibrillation. 4. Chronic obstructive pulmonary disease with history of smoking. 5. Iron deficiency anemia. 6. Anemia of blood loss. pneumonia
--- NOTE | 2020-03-23 10:27 | NUR ---
Dr Andres at bedside informed patient is on 100ml free water flushes decrease to 30ml, He also changed fio2 75% see changes, orders and notes.
[2020-03-23] MEDS: ASPIRIN 81 MG CHEW TAB PO SCH ×2 (10:34→16:34)
[2020-03-23] MEDS: PANTOPRAZOLE 40 MG 10ML VIAL IV SCH ×2 (10:34→21:00)
[2020-03-23] MEDS: ENOXAPARIN SOD INJ 40 MG/0.4 ML SYR SC SCH (10:34)
[2020-03-23] MEDS: AMIODARONE HCL 200 MG TAB PO SCH ×2 (10:34→16:34)
[2020-03-23] MEDS: IRON SUCROSE 100 MG in SODIUM CHLORIDE 0.9% 100 ML 100 ML IV SCH (10:34)
[2020-03-23] MEDS: METOPROLOL TARTRATE 25 MG TAB PO SCH ×2 (10:36→16:35)
--- NOTE | 2020-03-23 10:36 | NUR ---
Dr Andres called and updated Son Leonel and questions answered
[2020-03-23] MEDS ORDERED: FUROSEMIDE INJ 10 MG/ML 4 ML VIAL IV ONE (10:45)
--- NOTE | 2020-03-23 11:32 | Progress Note ---
DATE: SUBJECTIVE: The patient is still on mechanical ventilation. She completed her full course of antibiotics for the aspiration pneumonia. She required packed red blood cells yesterday. PHYSICAL EXAMINATION: VITAL SIGNS: Blood pressure is 94/60, saturation is 97% and the pulse is 91. She is on a PRVC at a rate of 16 with FiO2 of 75% and PEEP of 5. Her respiratory rate is 18 spontaneously. HEENT: Shows no facial swelling or erythema. She has an IJ line. The site looks clean. There is no drainage. CARDIAC: Reveals regular rate and rhythm with normal S1, S2. LUNGS: Auscultation of lungs reveals crackles and rhonchi bilaterally. There is no wheezing. ABDOMEN: Soft and nontender. There is no rebound or guarding. EXTREMITIES: Shows no leg edema or calf tenderness. There is no cyanosis or clubbing. SKIN: Shows no rashes. NEUROLOGICAL: Shows no focal abnormalities. LABORATORY DATA: White blood cell count is 16.4 and hemoglobin is 8.2. The platelet count is 305. The BUN to creatinine ratio is 41 to 0.84 and the potassium is 3.2. Albumin is 2.8. RADIOGRAPHIC DATA: Chest x-ray shows findings suggestive of multifocal pneumonia. IMPRESSION: 1. Aspiration pneumonia with severe sepsis, present on admission. 2. Acute on chronic systolic congestive heart failure. 3. Anemia secondary to chronic blood loss. 4. Paroxysmal atrial fibrillation. 5. Hypertension. PLAN: 1. Case discussed with son today. 2. Oxygen decreased to 75%, continue to wean ventilator as tolerated. 3. Continue to monitor blood counts. 4. Continue enteral feedings. 5. Additional Lasix today. 6. Replace potassium. 7. Continue low-dose Lopressor. 8. Case discussed with nursing, Respiratory, and Infectious Disease. Greater than 35 minutes in direct critical care time. Christofer Andres MD LM/GM /[id number]
[2020-03-23 12:14] LABS: ABG HCO3 26 mmol/L (22-26); ABG PCO2 45 mmHg (35-45); ABG PH 7.36 (7.35-7.45); ABG PO2 70 mmHg (80-105); ABG TCO2 27
--- NOTE | 2020-03-23 12:31 | NUR ---
Dr Mets here
--- NOTE | 2020-03-23 15:50 | NUR ---
DR Navarrete at bedside with [employer] W[employer] SYSTEM OPERATOR see notes and changes
--- NOTE | 2020-03-23 19:04 | Progress Note ---
DATE: Cardiology Progress Note SUBJECTIVE: Discussed with nurse at bedside. No cardiovascular events. OBJECTIVE: VITAL SIGNS: Temperature is 98.6, heart rate is 87, respirations are 18, blood pressure is 188/58, ox saturation 100% on 75% FiO2, being mechanically ventilated. GENERAL: Chronically ill-appearing. CARDIOVASCULAR: Regular rate and rhythm. LUNGS: Diminished breath sounds at bases. ABDOMEN: Soft, nontender, nondistended. NEUROLOGIC: Intubated, sedated. CARDIOVASCULAR MEDICATIONS: Reviewed. LABORATORY DATA: Reviewed. Hemoglobin is 8.2. Creatinine 0.84, potassium 3.2. TELEMETRY: Monitoring shows normal sinus rhythm. IMPRESSION: 1. Paroxysmal atrial fibrillation. 2. Acute on chronic systolic congestive heart failure. 3. Respiratory failure with hypoxia. 4. Pulmonary edema. 5. Pneumonia. 6. Hypertension. RECOMMENDATIONS: Continue amiodarone and metoprolol for rate and rhythm control. No anticoagulation is indicated at this point in time. Continue intermittent Lasix dosing for adequate diuresis. Wean ventilator per Pulmonary Critical Care. Continue antibiotic therapies per primary team. DO KARUNA Santos/MODL /[id number]
[2020-03-24] VITALS (25 sets, daily range): BP systolic 73–108; BP diastolic 47–69
[2020-03-24] MEDS: MIDAZOLAM HCL 5MG/ML 10ML VIAL 100 ML IV PRN (04:00)
[2020-03-24] MEDS: METOCLOPRAMIDE HCL 10 MG/2ML VIAL IV SCH ×4 (06:00→18:06)
[2020-03-24 06:13] LABS: BASOPHILS # (AUTO) 0.1 (0.0-0.1); BASOPHILS % 0.3 % (0.0-1.0); EOSINOPHILS # (AUTO) 0.7 (0.0-0.4); EOSINOPHILS % 3.4 % (0.0-6.0); HEMATOCRIT 28.2 % (34.2-44.1); HEMOGLOBIN 8.7 g/dL (12.0-16.0); LYMPHOCYTES # (AUTO) 1.3 (1.0-3.2); LYMPHOCYTES % 6.6 % (18.0-39.1); MEAN CORPUSCULAR HEMOGLOBIN 28.4 pg (28-32); MEAN CORPUSCULAR HGB CONC 30.9 g/dL (31-35); MEAN CORPUSCULAR VOLUME 92.2 fL (81-99); MONOCYTES # (AUTO) 1.1 (0.2-0.8); MONOCYTES % 5.9 % (4.4-11.3); NEUTROPHILS % 82.8 % (38.7-80.0); PLATELET COUNT 426 x10e3/uL (140-360); RED BLOOD COUNT 3.06 x10e6/uL (3.6-5.1); RED CELL DISTRIBUTION WIDTH 15.6 % (11.7-14.4)
[2020-03-24 06:40] LABS: ALANINE AMINOTRANSFERASE 11 IU/L (0-55); ALBUMIN 2.3 g/dL (3.5-5.0); ALBUMIN/GLOBULIN RATIO 0.8 (0.8-2.0); ALKALINE PHOSPHATASE 132 IU/L (40-150); ANION GAP 13.1 mmol/L (8-16); BLOOD UREA NITROGEN 38 mg/dL (7-26); BUN/CREATININE RATIO 51 (6-25); CALCIUM 8.8 mg/dL (8.4-10.2); CARBON DIOXIDE 29 mmol/L (22-29); CHLORIDE 102 mmol/L (98-107); CREATININE, SERUM 0.74 mg/dL (0.57-1.11); EST GLOMERULAR FILTRATION RATE > 60 ML/MIN (60-); GLUCOSE 102 mg/dL (74-118); POTASSIUM 3.1 mmol/L (3.5-5.1); SODIUM 141 mmol/L (136-145)
--- NOTE | 2020-03-24 06:42 | Diagnostic Imaging Report ---
EXAMINATION: CHEST SINGLE (PORTABLE) INDICATION: Respiratory failure COMPARISON: Day prior chest x-ray FINDINGS: TUBES and LINES: ET tube in the lower intrathoracic trachea. Right IJ central venous catheter, tip at the superior cavoatrial junction. Enteric tube courses into abdomen, tip out of field of view.. LUNGS: Partial collapse of left upper lobe.. Extensive airspace haziness. PLEURA: New moderate-sized left pneumothorax. HEART AND MEDIASTINUM: Unchanged. BONES AND SOFT TISSUES: Unchanged. UPPER ABDOMEN: No free air under the diaphragm. Unchanged. IMPRESSION: New moderate left pneumothorax. Extensive airspace disease. Findings of pneumothorax discussed with nurse Ms. Urbano at 6:34 AM on 03/24/[address] Kc via telephone. Signed by: Hao cK DO on 03/24/2020 6:39 AM
--- NOTE | 2020-03-24 07:00 | NUR ---
Received critical results on the chest xray, called Dr Andres with results
--- NOTE | 2020-03-24 07:02 | NUR ---
Phoned and spoke with Dr Andres of left pnemothorax gave him patient vital signs Hr 90, resp 16,fio2 100%,b/p 85/55/66. vent settings and patient settings from vent. He will be here to see patient
[2020-03-24] MEDS ORDERED: BUDESONIDE 0.5MG/2 ML NEB ONE (07:27)
--- NOTE | 2020-03-24 08:10 | NUR ---
Dr Andres at bedside informed him patient has bilateral breath sounds vital signs no change except sbp occ 83 and map 61
--- NOTE | 2020-03-24 08:15 | NUR ---
Dr Andres at bedside see new orders and notes
[2020-03-24] MEDS ORDERED: POTASSIUM CHLORIDE 20MEQ/100ML 200 ML IV ONE (08:30)
[2020-03-24] MEDS ORDERED: FUROSEMIDE INJ 10 MG/ML 4 ML VIAL IV NR (08:30)
--- NOTE | 2020-03-24 08:32 | NUR ---
Chest Xray done
[2020-03-24] MEDS: AMIODARONE HCL 200 MG TAB PO SCH ×2 (08:47→18:05)
[2020-03-24] MEDS: PANTOPRAZOLE 40 MG 10ML VIAL IV SCH ×2 (08:47→21:00)
[2020-03-24] MEDS: ASPIRIN 81 MG CHEW TAB PO SCH ×2 (08:47→18:05)
[2020-03-24] MEDS: IRON SUCROSE 100 MG in SODIUM CHLORIDE 0.9% 100 ML 100 ML IV SCH (08:47)
[2020-03-24] MEDS: ENOXAPARIN SOD INJ 40 MG/0.4 ML SYR SC SCH (08:47)
[2020-03-24] MEDS: METOPROLOL TARTRATE 25 MG TAB PO SCH ×2 (09:00→17:00)
--- NOTE | 2020-03-24 09:19 | Diagnostic Imaging Report ---
EXAMINATION: CHEST SINGLE (PORTABLE) INDICATION: Left pneumothorax ^[id number] ^[id number] COMPARISON: 03/24/2020 at 5:22 AM. FINDINGS: TUBES and LINES: ET tube with distal tip approximately 3.4 cm proximal to the lawrence. Right IJ central venous catheter, tip at the superior cavoatrial junction, unchanged. Enteric tube courses into abdomen, tip out of field of view, unchanged. LUNGS: Redemonstration of extensive patchy interstitial and airspace disease. PLEURA: Redemonstration of increased lucency throughout the left hemithorax with multiple vertical lines, and a deep sulcus sign concerning for pneumothorax. HEART AND MEDIASTINUM: Unchanged. BONES AND SOFT TISSUES: Unchanged. UPPER ABDOMEN: No free air under the diaphragm. Unchanged. IMPRESSION: Findings again consistent with a moderate left-sided pneumothorax. Signed by: Dr. Marianna Gutierres M.D. on 03/24/2020 9:16 AM
--- NOTE | 2020-03-24 10:00 | Progress Note ---
DATE: SUBJECTIVE: A 69-year-old female who came in with acute respiratory failure, pneumonia. COVID x3 negative. The patient is still intubated. PEEP of 9, and FiO2 70%. No nursing problems overnight. OBJECTIVE: VITAL SIGNS: Temperature is 98.1, has been afebrile, pulse 90, respirations 16, blood pressure is 85/55, pulse ox of 100%. GENERAL: She is sedated with Versed and with fentanyl. HEENT: The patient is intubated. CVS: S1-S2 distant. Regular rate and rhythm. ABDOMEN: Soft, nontender, and nondistended. EXTREMITIES: Left upper extremity some edema and bilateral lower extremity with some edema. LAB[place]ATORY [place]: [place] [address] today, hemoglobin 8.7, hematocrit of 28.2, and platelet count 426. Chemistries; sodium of 141, potassium 3.1, BUN of 38, creatinine 0.74. Serology, again nondetected coronavirus. Vancomycin trough has been . MEDICATIONS: She is on are Reglan q.6 hours, pantoprazole 40, amiodarone 200 mg twice a day p.o., furosemide 40 mg one dose has been given, enoxaparin 40 mg b.i.d. daily, acetaminophen 650 mg, fentanyl for sedation per mL per hour and neb treatments, potassium chloride daily as needed replacement. Microbiology and blood cultures are negative. Urine cultures so far are negative. ASSESSMENT AND PLAN: Ms. Karsten Bush with: 1. Acute respiratory failure intubated. 2. Acute on chronic congestive heart failure, Lasix p.r.n. 3. Severe sepsis on antibiotics. 4. Paroxysmal atrial fibrillation, currently on amiodarone. No anticoagulation at this time. 5. Chronic obstructive pulmonary disease with a history of smoking. 6. Iron deficiency anemia, status post is on iron treatment and also anemia of blood loss and 1 unit of PRBC has been PRBC has been transfused. Continue monitoring the patient. Continue keeping in ICU. Continue with electrolyte replacement as needed and for atrial fibrillation, continue amiodarone. Consultants on case Dr. Christofer Andres and Dr. Wil Fang. MD CODY Hassan/MODL /[id number]
--- NOTE | 2020-03-24 10:16 | Progress Note ---
DATE: SUBJECTIVE: The patient is currently on a PRVC mode of ventilation. FiO2 is down to 65% and PEEP is set at 6. She is breathing at 16 times a minute. Her tidal volume is set at 400. She has no fevers. PHYSICAL EXAMINATION: VITAL SIGNS: The blood pressure is 97/63. The pulse is 90. Saturation is 95% on the above settings. HEENT: No facial swelling or erythema. There is an oral endotracheal tube. LYMPHATIC: No submandibular, cervical, or supraclavicular adenopathy. CARDIAC: Regular rate and rhythm with normal S1, S2. LUNGS: Auscultation of lungs reveals rhonchorous breath sounds bilaterally. There is no wheezing. ABDOMEN: Soft, nontender. There is no rebound or guarding. EXTREMITIES: No leg edema or calf tenderness. There is no cyanosis or clubbing. SKIN: No rashes. NEUROLOGICAL: No focal abnormalities. LABORATORY DATA: White blood cell count is 19.3 and hemoglobin is 8.7. The platelet count is 426. The BUN to creatinine ratio is 38 to 0.74 and the potassium is 3.1. Albumin is 2.3. RADIOGRAPHIC DATA: Chest x-ray shows a possible left pneumothorax versus skin fold. IMPRESSION: 1. Acute respiratory failure. 2. Aspiration pneumonia with severe sepsis, present on admission. 3. Acute on chronic systolic heart failure. 4. Anemia secondary to chronic blood loss. 5. Paroxysmal atrial fibrillation. 6. Hypertension. 7. Possible pneumothorax versus artifact. PLAN: 1. Continue current ventilator settings. 2. The patient will go for CT scan of the chest. Although, the chest x-ray is suspicious for pneumo, the patient's clinical picture is not consistent with pneumothorax. Actually, her tidal volumes are normal and she has no increase in her pressures. She has no subcutaneous emphysema. A CT scan should clarify whether or not there is definite pneumo. 3. Continue enteral feedings. 4. Continue Lasix and albumin as needed. 5. Continue Lopressor and amiodarone. 6. Replace potassium. Case discussed with nursing, son, Respiratory, Infectious Disease, and Radiology. Greater than 35 minutes in direct critical care time. Christofer Andres MD [facility]/MODL /[id number]
--- NOTE | 2020-03-24 10:59 | NUR ---
To CT Scan with portable monitor DIETETIC TECHNICIAN and transporter
--- NOTE | 2020-03-24 11:44 | NUR ---
Returned from CT to room 189 placed back on central monitor all lines and ETT tube secue to vent
[2020-03-24 12:14] LABS: ABG HCO3 30 mmol/L (22-26); ABG PCO2 54 mmHg (35-45); ABG PH 7.35 (7.35-7.45); ABG PO2 66 mmHg (80-105); ABG TCO2 31
--- NOTE | 2020-03-24 12:41 | Progress Note ---
DATE: Cardiology Progress Note SUBJECTIVE: The patient is still intubated, sedated. No cardiac events. OBJECTIVE: VITAL SIGNS: Temperature is 98.2, heart rate 89, respirations 16, blood pressure is 95/60, and oxygen saturation is 100% on being mechanically ventilated with a FiO2 of 65. GENERAL: An elderly woman, intubated and sedated. CARDIOVASCULAR: Regular rate and rhythm. LUNGS: Diminished breath sounds at the bases. ABDOMEN: Soft, nontender, nondistended. EXTREMITIES: No edema. CARDIOVASCULAR MEDICATIONS: Reviewed. 1. Amiodarone 200 p.o. b.i.d. 2. Lasix 40 mg IV once. 3. Metoprolol tartrate 25 mg p.o. b.i.d. TELEMETRY: Telemetry monitoring personally reviewed and shows normal sinus rhythm. IMPRESSION: 1. Paroxysmal atrial fibrillation, currently in sinus rhythm. 2. Acute on chronic systolic congestive heart failure. 3. Respiratory failure with hypoxia. 4. Pulmonary edema. 5. Pneumonia. RECOMMENDATIONS: Continue amiodarone and metoprolol for rate and rhythm control. No anticoagulation is indicated at this point in time. Continue intermittent Lasix dosing for adequate diuresis. Wean ventilator per Pulmonary Critical Care. Continue antibiotic therapies per primary team. DO KARUNA Santos/GM /[id number]
[2020-03-24] MEDS: ALBUMIN 25% 25GM 100ML 0.25 GM/ML BTL IV SCH ×2 (12:57→18:05)
--- NOTE | 2020-03-24 13:35 | Diagnostic Imaging Report ---
EXAM: CT Chest WITHOUT contrast 03/24/2020 11:09 AM INDICATION: Pneumonia. Concern for pneumothorax on chest x-ray. COMPARISON: None TECHNIQUE: Chest was scanned utilizing a multidetector helical scanner from the lung apex through the level of the adrenal glands without administration of IV contrast. Absence of intravenous contrast decreases sensitivity for detection of lymphadenopathy and vascular pathology. Coronal and sagittal reformations were obtained. Routine protocol was performed. IV CONTRAST: None RADIATION DOSE: Total DLP: 438.48 mGy*cm Estimated effective dose: (DLP x 0.014 x size factor) mSv COMPLICATIONS: None FINDINGS: LINES/ TUBES: Enteric tube with distal tip within the stomach. Endotracheal tube with distal tip in adequate position above the lawrence. LUNGS AND AIRWAYS: Diffuse coarsening of the pulmonary interstitium. Patchy groundglass density throughout the bilateral lungs diffusely, with mosaic attenuation with "crazy paving" pattern which is nonspecific, however, which can be seen with pneumonitis, alveolar proteinosis, infectious etiologies, including cutting 19 pneumonia in the proper clinical setting.. There is bilateral traction bronchiectasis. Bibasilar subsegmental compressive atelectasis. PLEURA: Bilateral small to moderate pleural effusions HEART AND MEDIASTINUM: The thyroid gland is normal. Multiple mildly enlarged mediastinal lymph nodes, possibly reactive. The heart is normal in size.. There is no pericardial effusion. UPPER ABDOMEN: Limited non-contrast views of the upper abdomen show no abnormality within the visualized liver, spleen, pancreas, or kidneys. The adrenal glands are normal. BONES: The visualized bony thorax is within normal limits. SOFT TISSUES: Unremarkable. IMPRESSION: 1. No evidence of pneumothorax as suspected on recent chest radiographs. The findings of the chest radiograph are artifactual, possibly related to skin folds. 2. Abnormal appearance of the lungs bilaterally, with differential diagnosis including interstitial lung disease, with possible superimposed alveolar and interstitial pulmonary edema, pneumonitis, and infectious etiologies in the proper clinical setting. 3. Bilateral moderate volume pleural effusions and bibasilar compressive atelectasis. Signed by: Dr. Marianna Gutierres M.D. on 03/24/2020 1:31 PM
--- NOTE | 2020-03-24 14:20 | NUR ---
supervisor sawmill Lb morris states informed me daughter wants to face time with patient. She will let me no when the family is ready Addendum: 03/24/20 at 1448 by Reynaldo Stevenson RN Wrong patient
--- NOTE | 2020-03-24 15:39 | NUR ---
Placed order on wrong patient
--- NOTE | 2020-03-24 16:18 | Progress Note ---
DATE: SUBJECTIVE: Ms. Bush remains in intensive care unit. Remains on the ventilator. FiO2 of 65%, PEEP of 6. PHYSICAL EXAMINATION: HEENT: Normocephalic. NECK: Supple. CHEST: Crackles bilateral. HEART: S1, S2. ABDOMEN: Soft. Bowel sounds present. EXTREMITIES: No edema. IMPRESSION: Respiratory failure, pneumonia, aspiration, present on admission, pneumothorax. Continue supportive care as ordered. Discussed with the medical team. Prognosis is guarded. We will follow. She is currently off antibiotics. She finished a course of antibiotics. Her white count is up to 19. She had a CT of the chest today, showed there is no evidence of pneumothorax, interstitial lung disease, maybe pneumonia. We will put the patient on cefepime and Flagyl for now. We will recheck CBC. Recheck Chem panel and check amylase and lipase. MD TERRENCE Quintana/MODL /[id number]
--- NOTE | 2020-03-24 16:35 | NUR ---
Sputum collected labled and sent to lab.
[2020-03-24] MEDS: CEFEPIME 1GM/NS 0.9% 50 ML 50 ML IV SCH ×2 (18:04→23:00)
[2020-03-24] MEDS: METRONIDAZOLE 500MG/NS 100ML 100 ML IV SCH (23:00)
--- NOTE | 2020-03-24 23:00 | NUR ---
Received orders from Dr Trevizo to have a CT abd /pelvis done in the am and give milk of magnesia Via NGT
[2020-03-25] VITALS (25 sets, daily range): BP systolic 90–131; BP diastolic 52–78
[2020-03-25] MEDS ORDERED: MAGNESIUM HYDROXIDE 30 ML UDC NG ONE
[2020-03-25] MEDS: ALBUMIN 25% 25GM 100ML 0.25 GM/ML BTL IV SCH
[2020-03-25 05:33] LABS: BASOPHILS % 0.2 % (0.0-1.0); EOSINOPHILS # (AUTO) 0.6 (0.0-0.4); EOSINOPHILS % 3.8 % (0.0-6.0); HEMATOCRIT 24.9 % (34.2-44.1); HEMOGLOBIN 7.5 g/dL (12.0-16.0); LYMPHOCYTES # (AUTO) 1.3 (1.0-3.2); LYMPHOCYTES % 7.6 % (18.0-39.1); MEAN CORPUSCULAR HEMOGLOBIN 28.2 pg (28-32); MEAN CORPUSCULAR HGB CONC 30.1 g/dL (31-35); MEAN CORPUSCULAR VOLUME 93.6 fL (81-99); MONOCYTES % 5.9 % (4.4-11.3); NEUTROPHILS # (AUTO) 13.7 (2.1-6.9); NEUTROPHILS % 81.5 % (38.7-80.0); PLATELET COUNT 451 x10e3/uL (140-360); RED BLOOD COUNT 2.66 x10e6/uL (3.6-5.1); RED CELL DISTRIBUTION WIDTH 15.3 % (11.7-14.4)
[2020-03-25 05:57] LABS: ALANINE AMINOTRANSFERASE 10 IU/L (0-55); ALBUMIN 3.3 g/dL (3.5-5.0); ALBUMIN/GLOBULIN RATIO 1.4 (0.8-2.0); ALKALINE PHOSPHATASE 90 IU/L (40-150); ANION GAP 16.4 mmol/L (8-16); BLOOD UREA NITROGEN 37 mg/dL (7-26); BUN/CREATININE RATIO 50 (6-25); CARBON DIOXIDE 27 mmol/L (22-29); CHLORIDE 104 mmol/L (98-107); CREATININE, SERUM 0.74 mg/dL (0.57-1.11); EST GLOMERULAR FILTRATION RATE > 60 ML/MIN (60-); GLUCOSE 89 mg/dL (74-118); POTASSIUM 3.4 mmol/L (3.5-5.1); SODIUM 144 mmol/L (136-145)
[2020-03-25] MEDS ORDERED: POTASSIUM CHLORIDE 20MEQ/100ML 100 ML IV PRN (06:00)
[2020-03-25] MEDS: METOCLOPRAMIDE HCL 10 MG/2ML VIAL IV SCH ×4 (06:05→18:06)
[2020-03-25] MEDS: METRONIDAZOLE 500MG/NS 100ML 100 ML IV SCH ×3 (06:05→22:45)
[2020-03-25] MEDS: CEFEPIME 1GM/NS 0.9% 50 ML 50 ML IV SCH ×3 (06:05→21:45)
[2020-03-25] MEDS: MIDAZOLAM HCL 5MG/ML 10ML VIAL 100 ML IV PRN (06:20)
--- NOTE | 2020-03-25 08:26 | Progress Note ---
DATE: SUBJECTIVE: This 69-year-old female who came in with acute respiratory failure. The patient is intubated. Nursing staff with no complaints overnight. OBJECTIVE: VITAL SIGNS: The patient's temperature is 98.8, respirations of 16, blood pressure is 101/52, FiO2 of 65%. HEENT: Tube in place. CVS: S1 and S2, tachy. ABDOMEN: Soft, nontender. EXTREMITIES: No clubbing, no cyanosis, trace edema. LABORATORY STUDIES: White count down to 16,000, hemoglobin of 7.5, hematocrit of 24.9. Chemistries: Sodium 144, potassium 3.4, CO2 of 27, BUN of 37, creatinine 0.74. Serology: Coronavirus not detected x3. IMAGING STUDIES: From the , yesterday, diffuse . ASSESSMENT: Ms. Karsten Bush with acute respiratory failure, severe sepsis, acute on chronic systolic heart failure, anemia of blood loss, and iron deficiency. PLAN: Continue current setting. The patient will be sent for CT scan. Continue enteral feeding. Continue with cardiac medication. Replace electrolytes as needed. Further recommendation per clinical course. MD NAVA HassanJ/MODL /[id number]
[2020-03-25] MEDS ORDERED: IOPAMIDOL 370 MG/ML 200 ML INFUS..BTL INJ ONE (08:51)
--- NOTE | 2020-03-25 10:16 | Diagnostic Imaging Report ---
CT of the abdomen and pelvis with contrast TECHNIQUE: CT of the abdomen and pelvis WITH intravenous contrast and WITH oral contrast. Dose modulation, iterative reconstruction, and/or weight-based adjustment of the mA/kV was utilized to reduce the radiation dose to as low as reasonably achievable. IV CONTRAST: 100 mL of Isovue-370 ORAL CONTRAST: Gastrografin RADIATION DOSE: Total DLP: 728 mGy*cm COMPLICATIONS: None INDICATION: ^FEEDS INTOLERANCE. COMPARISON: None. FINDINGS: LOWER THORAX: Stable diffuse interstitial and groundglass opacities at the lung bases. Stable moderate right and small left pleural effusions. HEPATOBILIARY: No focal hepatic lesions. Hypoattenuation along the falciform ligament is noted and probably related to focal fatty infiltration. Gallbladder is surgically absent. No biliary ductal dilatation. SPLEEN: No splenomegaly. PANCREAS: No focal masses or ductal dilatation. Fatty atrophy is noted. ADRENALS: No adrenal nodules. KIDNEYS/URETERS: No hydronephrosis, stones, or masses. PELVIC ORGANS/BLADDER: Urinary bladder is decompressed by a Garcia catheter. Uterus and ovaries are surgically absent. PERITONEUM/RETROPERITONEUM: Small amount of free fluid is noted within the abdomen in the right upper quadrant extending up the right paracolic gutter. Negative for pneumoperitoneum. LYMPH NODES: No lymphadenopathy. VESSELS: Negative for abdominal aortic aneurysm. Mild infrarenal atherosclerotic changes are noted. GI TRACT: Enteric tube is seen with tip and sidehole within the distal stomach body/antrum. Stomach is moderately distended with fluid. Hyperenhancing small bowel including duodenum, jejunum and ileal bowel loops are noted. Negative for obstruction. Bowel loops are diffusely fluid-filled. Oral contrast is identified throughout the colon extending to the rectum. No surrounding inflammatory changes are identified. Focal large amount of stool is noted within the cecum and proximal ascending colon. No pneumatosis intestinalis is noted. BONES AND SOFT TISSUES: Negative for acute osseous abnormality. Mild to moderate multilevel degenerative changes of the spine are noted. There is mild superficial diffuse edema and stranding, mostly within the lower abdomen and pelvis. Injection granulomas identified projecting over the right buttocks/pelvis posteriorly. IMPRESSION: 1. Negative for bowel obstruction. Multiple small bowel loops are fluid-filled and hyperenhancing. Focal large amount of stool is noted within the proximal colon. Fluid is also noted within the proximal colon. Imaging findings are concerning for inflammatory or infectious etiologies such as enterocolitis. 2. Stable lung findings, better evaluated on CT chest reported one day earlier. Signed by: Jorge A Sharma MD on 03/25/2020 10:13 AM
[2020-03-25] MEDS ORDERED: FUROSEMIDE INJ 10 MG/ML 4 ML VIAL IV ONE (11:40)
--- NOTE | 2020-03-25 11:48 | Progress Note ---
DATE: 03/25/2020 Cardiology Progress note SUBJECTIVE: The patient is intubated and sedated. OBJECTIVE: VITAL SIGNS: Temperature 98.2 degrees, pulse 95, respiratory rate 16, blood pressure 108/60, and oxygen saturation 94% on mechanical ventilation. GENERAL: An elderly woman, intubated and sedated, no acute distress. LUNGS: Clear to auscultation anterior lung benavides. Decreased breath sounds at the bases. CARDIOVASCULAR: Normal rate. Regular rhythm. No murmur. Normal S1, S2. ABDOMEN: Soft, nontender. EXTREMITIES: No edema. CARDIAC MEDICATIONS: Amiodarone 200 mg p.o. b.i.d., aspirin 81 mg p.o. b.i.d., Lovenox 40 mg subcu daily, and metoprolol tartrate 25 mg p.o. b.i.d. LABORATORY DATA: WBC 16.76, hemoglobin 7.5, hematocrit 24.9, and platelets 451. Sodium 144, potassium 3.4, chloride 104, CO2 of 27, BUN 37, and creatinine 0.74. TELEMETRY: Telemetry was personally reviewed and interpreted revealing normal sinus rhythm. IMPRESSION: 1. Paroxysmal atrial fibrillation, currently sinus rhythm. 2. Acute on chronic systolic heart failure, left ventricular ejection fraction 20-25%. 3. Acute hypoxic respiratory failure, currently intubated. 4. Pulmonary edema. 5. Pneumonia. 6. Anemia. RECOMMENDATIONS: Continue amiodarone and metoprolol. No anticoagulation at this time due to anemia. Continue supportive care. Recommend IV Lasix for diuresis given her severe systolic heart failure. Antibiotics per Infectious Disease. Ventilator management per Pulmonary. Thank you for this consult. We will continue to follow. Latasha Durán MD [facility]/MODL /[id number]
[2020-03-25] MEDS: PANTOPRAZOLE 40 MG 10ML VIAL IV SCH ×2 (11:56→21:32)
[2020-03-25] MEDS: AMIODARONE HCL 200 MG TAB PO SCH ×2 (11:56→18:05)
[2020-03-25] MEDS: IRON SUCROSE 100 MG in SODIUM CHLORIDE 0.9% 100 ML 100 ML IV SCH (11:56)
[2020-03-25] MEDS: METOPROLOL TARTRATE 25 MG TAB PO SCH ×2 (11:56→18:06)
[2020-03-25] MEDS: ASPIRIN 81 MG CHEW TAB PO SCH ×2 (11:56→18:05)
[2020-03-25] MEDS: ENOXAPARIN SOD INJ 40 MG/0.4 ML SYR SC SCH (11:57)
[2020-03-25] MEDS: FUROSEMIDE INJ 10 MG/ML 4 ML VIAL IV SCH (11:57)
--- NOTE | 2020-03-25 12:08 | Progress Note ---
DATE: Pulmonary Critical Care Progress Note SUBJECTIVE: The patient went for CT of the chest yesterday. There was no pneumothorax. The patient has bilateral infiltrates and effusions. There may also be some cephalization suggestive of CHF. The patient went for CT scan of the abdomen and pelvis this morning that showed some dilated bowel loops, suggestive of ileus, but no acute pathology. The patient remains on an assist control mode of ventilation. She is set at 400 with 75% FiO2 and 5 of PEEP. Her respiratory rate is set at 16. PHYSICAL EXAMINATION: VITAL SIGNS: The patient is afebrile. The blood pressure is 140/61 and saturation is 94%. Pulse is 80. HEENT: Shows no facial swelling or erythema. LYMPHATIC: Shows no submandibular, cervical, or supraclavicular adenopathy. CARDIAC: Reveals a regular rate and rhythm with normal S1 or S2. LUNGS: Auscultation of lungs reveals rhonchorous breath sounds bilaterally. There is no wheezing. ABDOMEN: Soft and nontender. There is no rebound or guarding. EXTREMITIES: Shows no leg edema or calf tenderness. There is no cyanosis or clubbing. SKIN: Shows no rashes. NEUROLOGICAL: Shows the patient to be sedated. LABORATORY DATA: BUN to creatinine ratio is 37 to 0.74. Potassium is 3.4 and other electrolytes are within normal limits. Albumin is 3.4. Hemoglobin is 7.5 and white blood cell count is 16.7. The platelet count is 451. IMPRESSION: 1. Acute respiratory failure. 2. Aspiration pneumonia with severe sepsis, present on admission. 3. Mykwm-lo-egqkeal systolic congestive heart failure. 4. Anemia secondary to chronic blood loss. 5. Paroxysmal atrial fibrillation. 6. Hypertension. 7. Feeding tube intolerance. PLAN: 1. Repeat ABG and monitor ventilator settings. 2. Additional Lasix today. 3. Continue amiodarone and Lopressor. 4. Advance enteral feedings as tolerated. 5. The patient has been restarted on meropenem, cefepime, and Flagyl by Infectious Disease. 6. Continue Protonix. 7. Continue Lovenox. Greater than 35 minutes in direct critical care time. Christofer Andres MD [facility]/MODL /[id number]
[2020-03-25 12:20] LABS: ABG PCO2 51 mmHg (35-45); ABG PH 7.36 (7.35-7.45); ABG PO2 50 mmHg (80-105)
[2020-03-25 12:21] LABS: ABG TCO2 30
--- NOTE | 2020-03-25 14:36 | NUR ---
infectious disease progress note Patient seen and examined this is March 25, 2020 patient case was discussed with the medical team. he patient went for CT of the chest yesterday. There was no pneumothorax. The patient has bilateral infiltrates and effusions. There may also be some cephalization suggestive of CHF. The patient went for CT scan of the abdomen and pelvis this morning that showed some dilated bowel loops, suggestive of ileus, but no acute pathology. The patient remains on an assist control mode of ventilation. She is set at 400 with 75% FiO2 and 5 of PEEP. Her respiratory rate is set at 16. PHYSICAL EXAMINATION: VITAL SIGNS: The patient is afebrile. The blood pressure is 140/61 and saturation is 94%. Pulse is 80. HEENT: Shows no facial swelling or erythema. LYMPHATIC: Shows no submandibular, cervical, or supraclavicular adenopathy. CARDIAC: Reveals a regular rate and rhythm with normal S1 or S2. LUNGS: Auscultation of lungs reveals rhonchorous breath sounds bilaterally. There is no wheezing. ABDOMEN: Soft and nontender. There is no rebound or guarding. EXTREMITIES: Shows no leg edema or calf tenderness. There is no cyanosis or clubbing. SKIN: Shows no rashes. NEUROLOGICAL: Shows the patient to be sedated. LABORATORY DATA: BUN to creatinine ratio is 37 to 0.74. Potassium is 3.4 and other electrolytes are within normal limits. Albumin is 3.4. Hemoglobin is 7.5 and white blood cell count is 16.7. The platelet count is 451. IMPRESSION: 1. Acute respiratory failure. 2. Aspiration pneumonia with severe sepsis, present on admission. 3. Qtgkr-of-cxfwuus systolic congestive heart failure. 4. Anemia secondary to chronic blood loss. 5. Paroxysmal atrial fibrillation. 6. Hypertension. 7. Feeding tube intolerance. ileus Check CBC with check in panel nothing by mouth We will follow
--- NOTE | 2020-03-25 18:45 | NUR ---
Report received. Assumed care. Assessment done. See interventions. Orally intubated with 7.5 FR ETT secured @ 23 cm @ the lip. Vent settings: TV 400, FIO2 80%, PRVC 16 & 8cm PEEP. IVs: Versed @ 2mg/hr & Fentanyl @ 25,cg/hr or 3.1 ml/hr.
[2020-03-26] VITALS (11 sets, daily range): BP systolic 102–125; BP diastolic 58–65
[2020-03-26] MEDS: FENTANYL 2000MCG/NS 250 250 ML IV PRN (02:00)
[2020-03-26] MEDS: MIDAZOLAM HCL 5MG/ML 10ML VIAL 100 ML IV PRN (02:01)
[2020-03-26] MEDS ORDERED: MAGNESIUM HYDROXIDE 30 ML UDC PO ONE (04:00)
[2020-03-26 04:39] LABS: BASOPHILS % 0.2 % (0.0-1.0); EOSINOPHILS # (AUTO) 0.5 (0.0-0.4); EOSINOPHILS % 2.6 % (0.0-6.0); HEMATOCRIT 26.3 % (34.2-44.1); HEMOGLOBIN 7.9 g/dL (12.0-16.0); LYMPHOCYTES # (AUTO) 0.8 (1.0-3.2); LYMPHOCYTES % 4.4 % (18.0-39.1); MEAN CORPUSCULAR HEMOGLOBIN 28.9 pg (28-32); MEAN CORPUSCULAR VOLUME 96.3 fL (81-99); MONOCYTES % 5.8 % (4.4-11.3); NEUTROPHILS # (AUTO) 14.9 (2.1-6.9); PLATELET COUNT 497 x10e3/uL (140-360); RED BLOOD COUNT 2.73 x10e6/uL (3.6-5.1); RED CELL DISTRIBUTION WIDTH 15.4 % (11.7-14.4)
[2020-03-26 05:00] LABS: ALANINE AMINOTRANSFERASE 9 IU/L (0-55); ALBUMIN 2.6 g/dL (3.5-5.0); ALKALINE PHOSPHATASE 85 IU/L (40-150); ANION GAP 13.3 mmol/L (8-16); BLOOD UREA NITROGEN 38 mg/dL (7-26); BUN/CREATININE RATIO 53 (6-25); CALCIUM 8.6 mg/dL (8.4-10.2); CARBON DIOXIDE 29 mmol/L (22-29); CHLORIDE 106 mmol/L (98-107); CREATININE, SERUM 0.72 mg/dL (0.57-1.11); EST GLOMERULAR FILTRATION RATE > 60 ML/MIN (60-); GLUCOSE 100 mg/dL (74-118); POTASSIUM 3.3 mmol/L (3.5-5.1); SODIUM 145 mmol/L (136-145)
[2020-03-26] MEDS: CEFEPIME 1GM/NS 0.9% 50 ML 50 ML IV SCH ×2 (05:45→13:31)
[2020-03-26] MEDS: METRONIDAZOLE 500MG/NS 100ML 100 ML IV SCH ×2 (06:22→13:30)
[2020-03-26] MEDS: METOCLOPRAMIDE HCL 10 MG/2ML VIAL IV SCH ×4 (06:22→18:16)
--- NOTE | 2020-03-26 08:12 | Progress Note ---
DATE: SUBJECTIVE: The patient is a 69-year-old female who came in with acute respiratory failure, is on mechanical ventilation on FiO2 of 80%. The patient is currently sedated. Medications reviewed. She is on Flagyl, cefepime, and on DVT prophylaxis of enoxaparin daily. The patient is also on amiodarone for atrial fibrillation and metoprolol for rate control. OBJECTIVE: VITAL SIGNS: Temperature is 99.8, T-max 99.8, pulse of 85, respirations of 18, blood pressure is 102/67. She is on mechanical ventilator. HEENT: Intubated. CVS: S1 and S2 are normal. Regular rate and rhythm. ABDOMEN: Soft, nontender, nondistended. EXTREMITIES: No edema. LABORATORY VALUES: White count is trending up again 17,000, hemoglobin 7.9, hematocrit 26.3. Chemistries: Sodium 145, potassium 3.3. Toxicology; vancomycin on was done. Otherwise, not on vancomycin at this time. Urine and microbiology so far negative and coronavirus is negative x3. ASSESSMENT: Ms. Karsten Bush with: 1. Acute respiratory failure. 2. Paroxysmal atrial fibrillation, controlled. 3. Pneumonia. 4. Blood loss anemia. 5. Hypertension. 6. Questionable aspiration. PLAN: Continue with amiodarone and Lopressor for rate control. Antibiotics as mentioned above, Flagyl and cefepime. Continue on Lovenox for DVT prophylaxis. Continue to monitor the patient. Consultants on board are ID, Pulmonary, and Cardiology. Further recommendation per clinical course. We will talk to family today. MD CODY Hassan/MODL /[id number]
[2020-03-26] MEDS: ASPIRIN 81 MG CHEW TAB PO SCH ×2 (08:29→18:16)
[2020-03-26] MEDS: FUROSEMIDE INJ 10 MG/ML 4 ML VIAL IV SCH (08:29)
[2020-03-26] MEDS: PANTOPRAZOLE 40 MG 10ML VIAL IV SCH (08:29)
[2020-03-26] MEDS: AMIODARONE HCL 200 MG TAB PO SCH ×2 (08:29→18:16)
[2020-03-26] MEDS: IRON SUCROSE 100 MG in SODIUM CHLORIDE 0.9% 100 ML 100 ML IV SCH (08:31)
--- NOTE | 2020-03-26 08:40 | Diagnostic Imaging Report ---
EXAMINATION: CHEST SINGLE (PORTABLE) INDICATION: Respiratory failure COMPARISON: Chest radiograph 03/24/2020, chest CT 03/24/2020 FINDINGS: LINES/TUBES:Support lines and tubes unchanged. LUNGS:The lung volumes are low. Worsening diffuse bilateral air space opacities. PLEURA:Bilateral pleural effusions. No pneumothorax. MEDIASTINUM:The cardiomediastinal silhouette appears normal in size and shape. BONES/SOFT TISSUES:No acute osseous injury. ABDOMEN:No free air under the diaphragm. IMPRESSION: Low lung volumes and worsening bilateral diffuse airspace opacities. Signed by: Jamie Jensen MD on 03/26/2020 8:37 AM
[2020-03-26] MEDS: METOPROLOL TARTRATE 25 MG TAB PO SCH ×2 (09:00→17:00)
[2020-03-26] MEDS ORDERED: FUROSEMIDE INJ 10 MG/ML 4 ML VIAL IV ONE (09:30)
[2020-03-26] MEDS: ENOXAPARIN SOD INJ 40 MG/0.4 ML SYR SC SCH (09:48)
--- NOTE | 2020-03-26 09:48 | Progress Note ---
DATE: SUBJECTIVE: The patient remains on 80% oxygen and 8 of PEEP. She received Lasix yesterday and is negative 350 mL. PHYSICAL EXAMINATION: VITAL SIGNS: The blood pressure is 110/60 and the saturation is 96% on above settings. The CVP is measuring 10. There is a IJ line. The site looks clean. There is no drainage. There is an oral endotracheal tube. CARDIAC: Reveals regular rate and rhythm with normal S1 and S2. LUNGS: Auscultation of lungs reveals crackles at the bases. There is no wheezing. ABDOMEN: Soft and nontender. There is no rebound or guarding. EXTREMITIES: Shows no leg edema or calf tenderness. There is no cyanosis or clubbing. SKIN: Shows no rashes. NEUROLOGICAL: Shows no focal abnormalities. LABORATORY DATA: White blood cell count is 17.4 and hemoglobin is 7.9. The platelet count is 497. The BUN to creatinine ratio is 38 to 0.72. The potassium is 3.3 and the albumin is 2.6. RADIOGRAPHIC DATA: Chest x-ray shows worsening bilateral airspace opacities. IMPRESSION: 1. Acute respiratory failure. 2. Aspiration pneumonia with severe sepsis, present on admission. 3. Dafij-mw-frbpoto systolic congestive heart failure. 4. Anemia secondary to chronic blood loss. 5. Paroxysmal atrial fibrillation. 6. Hypertension. 7. Feeding tube intolerance. PLAN: 1. Repeat ABG. 2. The patient will probably need tracheostomy. 3. Continue amiodarone and metoprolol. 4. Additional Lasix today. 5. Continue cefepime and Flagyl. 6. Continue Lovenox. 7. Continue enteral feedings. 8. Case discussed with Respiratory, nursing, Infectious Disease, and family. Greater than 35 minutes in direct critical care time. Christofer Andres MD [facility]/MODL /[id number]
--- NOTE | 2020-03-26 09:52 | NUR ---
Clarified Lasix one time order with Dr Elva Andres as 40 IV given this a.m.; called consult to Alisson at Dr Henning's office.
[2020-03-26] MEDS ORDERED: POTASSIUM CHLORIDE 20MEQ/15ML UDC NG ONE (10:20)
--- NOTE | 2020-03-26 13:19 | NUR ---
infectious disease progress note. Patient seen and examined and chart reviewed with her this is the 11th hospitalization. Case was discussed with the medical team. he patient remains on 80% oxygen and 8 of PEEP. She received Lasix yesterday and is negative 350 mL. PHYSICAL EXAMINATION:patient remains on the ventilator intubated sedated VITAL SIGNS: The blood pressure is 110/60 and the saturation is 96% on above settings. The CVP is measuring 10. There is a IJ line. The site looks clean. There is no drainage. There is an oral endotracheal tube. CARDIAC: Reveals regular rate and rhythm with normal S1 and S2. LUNGS: Auscultation of lungs reveals crackles at the bases. There is no wheezing. ABDOMEN: Soft and nontender. There is no rebound or guarding. EXTREMITIES: Shows no leg edema or calf tenderness. There is no cyanosis or clubbing. SKIN: Shows no rashes. NEUROLOGICAL: Shows no focal abnormalities. LABORATORY DATA: White blood cell count is 17.4 and hemoglobin is 7.9. The platelet count is 497. The BUN to creatinine ratio is 38 to 0.72. The potassium is 3.3 and the albumin is 2.6. RADIOGRAPHIC DATA: Chest x-ray shows worsening bilateral airspace opacities. IMPRESSION: 1. Acute respiratory failure. 2. Aspiration pneumonia with severe sepsis, present on admission. 3. Wbwok-wp-ntghpqc systolic congestive heart failure. 4. Anemia secondary to chronic blood loss. 5. Paroxysmal atrial fibrillation. 6. Hypertension. 7. Feeding tube intolerance. continue with antibiotic as ordered planned on 7 days of antibiotic she is currently on cefepime and Flagyl day #2 out of 7
[2020-03-26 14:01] LABS: ABG HCO3 34 mmol/L (22-26); ABG PCO2 57 mmHg (35-45); ABG PH 7.38 (7.35-7.45); ABG PO2 78 mmHg (80-105); ABG TCO2 35
--- NOTE | 2020-03-26 15:45 | Progress Note ---
DATE: 03/26/2020 Cardiology Progress Note SUBJECTIVE: The patient remains intubated and sedated. OBJECTIVE: VITAL SIGNS: Temperature 98.1 degrees, pulse 85, respiratory rate 19, blood pressure 104/60, and oxygen saturation 96% on mechanical ventilation. GENERAL: An elderly woman, intubated and sedated, no acute distress. LUNGS: Clear to auscultation on anterior lung benavides. Decreased breath sounds at the bases. CARDIOVASCULAR: Normal rate. Regular rhythm. No murmur. Normal S1, S2. ABDOMEN: Soft, nontender. EXTREMITIES: No edema. CARDIAC MEDICATIONS: 1. Furosemide 40 mg IV daily. 2. Enoxaparin 40 mg subcu daily. 3. Aspirin 81 mg p.o. b.i.d. 4. Metoprolol tartrate 25 mg p.o. b.i.d. 5. Amiodarone 200 mg p.o. b.i.d. LABORATORY DATA: WBC 17.37, hemoglobin 7.9, hematocrit 26.3, and platelets 497. Sodium 145, potassium 3.3, chloride 106, CO2 of 29, BUN 38, and creatinine 0.72. TELEMETRY: Telemetry was personally reviewed and interpreted revealing normal sinus rhythm. IMPRESSION: 1. Paroxysmal atrial fibrillation, currently in sinus rhythm. 2. Acute on chronic systolic heart failure, left ventricular ejection fraction 20-25%. 3. Acute hypoxic respiratory failure, currently intubated. 4. Pulmonary edema. 5. Pneumonia. 6. Anemia. RECOMMENDATIONS: Continue amiodarone and metoprolol. No anticoagulation at this time due to anemia. Continue supportive care. Continue IV Lasix given her severe systolic heart failure. Antibiotics per Infectious Disease. Ventilator management per Pulmonary. Thank you for this consult. We will continue to follow. Latasha Durán MD [facility]/MODL /[id number]
--- NOTE | 2020-03-26 18:25 | NUR ---
Report called to MARIXA Riggs for , Bed 19 ([phone].)
--- NOTE | 2020-03-26 18:45 | NUR ---
Family notified by Marianna Obrien RN, CNO of transfer.
== END 2020-03-26 19:58 | disposition short-term general hospital (02) | DRG 870 ==
LOC: ER 22:27 → ERHOLD 23:40 → MED/SURG3 03-16 01:06 → ICU 03-17 14:36
PROVIDERS: ADMIT Family Medicine; ATTEND Family Medicine
PROC: 5A1955Z Respiratory Ventilation, Greater than 96 Consecutive Hours (ICD-10-PCS; principal; 2020-03-17)
PROC: 0BH17EZ Insertion of Endotracheal Airway into Trachea, Via Natural or Artificial Opening (ICD-10-PCS; 2020-03-17)
PROC: 02HV33Z Insertion of Infusion Device into Superior Vena Cava, Percutaneous Approach (ICD-10-PCS; 2020-03-17)
PROC: 30243N1 Transfusion of Nonautologous Red Blood Cells into Central Vein, Percutaneous Approach (ICD-10-PCS; 2020-03-22)
DX: A41.9 Sepsis, unspecified organism (principal); J96.01 Acute respiratory failure with hypoxia; J69.0 Pneumonitis due to inhalation of food and vomit; I50.23 Acute on chronic systolic (congestive) heart failure; E87.2 Acidosis; K21.9 Gastro-esophageal reflux disease without esophagitis; I48.0 Paroxysmal atrial fibrillation; E87.6 Hypokalemia; Z11.59 Encounter for screening for other viral diseases; R65.20 Severe sepsis without septic shock; I11.0 Hypertensive heart disease with heart failure; E78.5 Hyperlipidemia, unspecified; D50.0 Iron deficiency anemia secondary to blood loss (chronic); J44.9 Chronic obstructive pulmonary disease, unspecified; F17.201 Nicotine dependence, unspecified, in remission; F41.9 Anxiety disorder, unspecified; K59.00 Constipation, unspecified
CPT/HCPCS: 36415; 36600; 71045; 71250; 74018; 74177; 80048; 80053; 80202; 81001; 82150; 82607; 82728; 82746; 82805; 82948; 83540; 83605; 83690; 83735; 83880; 84466; 85014; 85018; 85025; 85045; 86850; 86900; 86920; 87040; 87070; 87086; 87205; 93005; 93306; 94002; 94003; 94660; 96374; 99284; J0330; J0456; J0692; J1650; J1756; J1940; J2250; J2405; J2543; J2550; J2765; J2920; J3370; J3480; J7030; J7050; P9016; P9047; Q9967; U0002